=== PATIENT | male | born 1950 | race Caucasian/White ===

== ENCOUNTER 2018-07-26 19:01 | Emergency (ER) | payer MEDICARE, MEDICAID ==
[~2018-07-26] VITALS: Ht 162.6 cm; Wt 99.8 kg
--- NOTE | 2018-07-26 19:10 | NUR ---
BIB RA C/C OF CHEST PAIN/ HEADACHE X 2 DAYS. SECONDARY TO INCREASED BLOOD PRESSURE. SKIN PINK, WARM, DRY. MOVES ALL EXTREMITIES WELL. 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 NO S/S SOB. PT DENIES ANY FURTHER MEDICAL COMPLAINTS. NAD. WILL CONTINUE TO MONITOR.
[2018-07-26] MEDS ORDERED: NITROGLYCERIN 0.4 MG/TAB BOTTLE ONE (19:18)
[2018-07-26] MEDS ORDERED: ASPIRIN 325 MG TABLET ONE (19:18)
[2018-07-26] MEDS ORDERED: NITROGLYCERIN 0.4 MG/TAB BOTTLE SL ONE (19:30)
[2018-07-26] MEDS ORDERED: ASPIRIN 325 MG TABLET PO ONE (19:30)
[2018-07-26 19:35] LABS: BASOPHILS % (AUTO) 0.4 % (0.0-2.0); EOSINOPHILS % (AUTO) 2.4 % (0.0-6.0); HEMATOCRIT 40 % (39-51); HEMOGLOBIN 13.6 g/dL (13.5-17.5); LYMPHOCYTES # (AUTO) 1.4 /CMM (0.8-4.8); LYMPHOCYTES % (AUTO) 22.8 % (20.0-44.0); MEAN CORPUSCULAR HGB CONC 34 g/dl (31.0-36.0); MEAN CORPUSCULAR VOLUME 88 fL (80-96); MONOCYTES # (AUTO) 0.4 /CMM (0.1-1.30); MONOCYTES % (AUTO) 6.8 % (2.0-12.0); NEUTROPHILS # (AUTO) 4.2 /CMM (1.8-8.9); NEUTROPHILS % (AUTO) 67.6 % (43.0-81.0); PLATELET COUNT (AUTO) 163 /CMM (150-450); RED BLOOD CELL COUNT(AUTO) 4.55 MIL/uL (4.5-6.0); WHITE BLOOD COUNT (AUTO) 6.2 K/uL (4.3-11.0)
--- NOTE | 2018-07-26 19:37 | NUR ---
PT BROUGHT TO CT
[2018-07-26 19:41] LABS: CALCIUM, SERUM 8.9 mg/dL (8.5-10.1); CARBON DIOXIDE 30 mmol/L (21-32); CHLORIDE 98 mmol/L (98-107); CREATININE 1.1 mg/dL (0.6-1.3); GLUCOSE 253 mg/dL (74-106); POTASSIUM 4.4 mmol/L (3.5-5.1); SODIUM SERUM 133 mmol/L (136-145); UREA NITROGEN, BLOOD 29 mg/dL (7-18)
[2018-07-26 19:53] LABS: ALANINE AMINOTRANSFERASE 28 U/L (12-78); ALBUMIN 2.9 g/dL (3.4-5.0); ALKALINE PHOSPHATASE 144 U/L (46-116); ASPARTATE AMINOTRANSFERASE 15 U/L (15-37); B-TYPE NATRIURETIC PEPTIDE 244 PG/ML (0-125); BILIRUBIN,DIRECT 0.1 mg/dL (0.0-0.2); BILIRUBIN,TOTAL 0.3 mg/dL (0.2-1.0); TOTAL PROTEIN, SERUM 6.9 g/dL (6.4-8.2)
[2018-07-26] MEDS ORDERED: hydrALAZINE HCL IV 20 MG VIAL IV ONE (20:00)
--- NOTE | 2018-07-26 20:09 | NUR ---
AMBULATED TO BATHROOM WITH STABLE GAIT. NAD. WILL CONTINUE TO MONITOR.
--- NOTE | 2018-07-26 20:35 | NUR ---
Patient discharged to home in stable condition. Written and verbal after care instructions given. Patient verbalizes understanding of instruction. IV removed. Catheter intact and site benign. Pressure and 4x4 applied to site. No bleeding noted. AMBULATED WITH STABLE GAIT UPON D/C. NAD. VSS.
[2018-07-26 20:36] VITALS: BP 141/82
== END 2018-07-26 20:36 | disposition home or self-care (01) ==
LOC: ER 19:13
DX: I10 Essential (primary) hypertension (principal); R51 Headache; E11.9 Type 2 diabetes mellitus without complications; J45.909 Unspecified asthma, uncomplicated
CPT/HCPCS: 36415; 70450-TC; 71045-TC; 80048-TC; 80076-TC; 83880; 84484-TC; 85025-TC

== ENCOUNTER 2019-02-22 04:14 | Inpatient (IN) | payer MEDICARE, MEDICAID ==
[~2019-02-22] VITALS: Ht 172.7 cm; Wt 93.4 kg
[2019-02-22 04:41] LABS: BASOPHILS % (AUTO) 0.3 % (0.0-2.0); EOSINOPHILS % (AUTO) 1.6 % (0.0-6.0); HEMATOCRIT 40 % (39-51); HEMOGLOBIN 13.2 g/dL (13.5-17.5); LYMPHOCYTES # (AUTO) 1.6 /CMM (0.8-4.8); LYMPHOCYTES % (AUTO) 18.5 % (20.0-44.0); MEAN CORPUSCULAR HGB CONC 33 g/dl (31.0-36.0); MEAN CORPUSCULAR VOLUME 88 fL (80-96); MONOCYTES # (AUTO) 0.7 /CMM (0.1-1.30); MONOCYTES % (AUTO) 8.7 % (2.0-12.0); NEUTROPHILS # (AUTO) 6.1 /CMM (1.8-8.9); NEUTROPHILS % (AUTO) 70.9 % (43.0-81.0); PLATELET COUNT (AUTO) 197 /CMM (150-450); RED BLOOD CELL COUNT(AUTO) 4.49 MIL/uL (4.5-6.0); WHITE BLOOD COUNT (AUTO) 8.6 K/uL (4.3-11.0)
[2019-02-22 04:51] LABS: CALCIUM, SERUM 8.7 mg/dL (8.5-10.1); CREATININE 1.4 mg/dL (0.6-1.3); POTASSIUM 3.6 mmol/L (3.5-5.1)
[2019-02-22] MEDS ORDERED: HYDR100T27 PO (04:59)
[2019-02-22] MEDS ORDERED: ATOR10TA PO (05:00)
[2019-02-22] MEDS ORDERED: CARV25TA2 PO (05:00)
[2019-02-22] MEDS ORDERED: HYDR25TA4 PO (05:01)
[2019-02-22] MEDS ORDERED: HYDR-4077 PO (05:01)
[2019-02-22] MEDS ORDERED: WARF4TAB72 PO (05:01)
[2019-02-22] MEDS ORDERED: OLME40TA12 PO (05:02)
[2019-02-22] MEDS ORDERED: CLON0.1T PO (05:02)
[2019-02-22] MEDS ORDERED: ONDANSETRON HCL/PF 4 MG/2 ML VIAL IVP PRN (06:00)
[2019-02-22] MEDS ORDERED: NITROGLYCERIN 0.4 MG/TAB BOTTLE SL PRN (06:00)
[2019-02-22] MEDS ORDERED: INSU100V7 SQ (08:42)
[2019-02-22] MEDS ORDERED: LIRA0.6P SQ (08:42)
[2019-02-22] MEDS ORDERED: METOPROLOL TARTRATE 25 MG TABLET PO SCH (09:00)
[2019-02-22] MEDS: ASPIRIN 81 MG TAB.CHEW PO SCH (12:09)
[2019-02-22] MEDS ORDERED: CLONIDINE HCL 0.1 MG TABLET PO PRN (15:00)
[2019-02-22] MEDS ORDERED: hydrALAZINE HCL 50 MG TABLET PO PRN (15:00)
[2019-02-22] MEDS ORDERED: HYDROCHLOROTHIAZIDE 25 MG TABLET PO SCH (15:00)
[2019-02-22] MEDS ORDERED: DEXTROSE 50%-WATER 50 ML DISP.SYRIN IV PRN (15:30)
[2019-02-22] MEDS ORDERED: LORAZEPAM 1 MG TABLET PO PRN ×2 (15:30)
[2019-02-22 16:00] VITALS: BP 148/80
[2019-02-22] MEDS ORDERED: LOSARTAN POTASSIUM 50 MG TABLET PO SCH (16:00)
[2019-02-22] MEDS ORDERED: WARFARIN SODIUM 2 MG TABLET PO SCH (17:00)
[2019-02-22 17:19] LABS: CHOLESTEROL 148 mg/dL (<200); HDL CHOLESTEROL 38 mg/dL (40-60); LDL 84 mg/dL (0-99); TRIGLYCERIDES 173 mg/dL (30-150)
[2019-02-22] MEDS: WARFARIN SODIUM 2 MG TABLET PO SCH (18:21)
[2019-02-22] MEDS: ATORVASTATIN 10 MG TABLET PO SCH (18:22)
[2019-02-22] MEDS: BLOOD SUGAR DIAGNOSTIC 1 EACH STRIP VI SCH ×2 (18:22→21:22)
[2019-02-22] MEDS: CARVEDILOL 12.5 MG TABLET PO SCH (18:22)
[2019-02-22] MEDS: ISOSORBIDE DINITRATE (20MG) 20 MG TABLET PO SCH (18:23)
[2019-02-22] MEDS: hydrALAZINE HCL 50 MG TABLET PO SCH (18:23)
[2019-02-22] MEDS: ENOXAPARIN SODIUM 100 MG/ML DISP.SYRIN SQ SCH (18:24)
[2019-02-22] MEDS: INSULIN REGULAR, HUMAN 100 UNIT/ML 3 ML VIAL SQ PRN (18:26)
[2019-02-22 20:00] VITALS: BP 117/69
[2019-02-22] MEDS: IV NS 0.9% 1,000 ML IV PRN (21:05)
[2019-02-22] MEDS: *INSULIN REGULAR(HUMULIN R)HUM 100 UNIT/ML VIAL SQ PRN (21:18)
[2019-02-22] MEDS: INSULIN GLARGINE, 100 UNIT/ML CARTRIDGE SQ SCH (21:19)
[2019-02-23] VITALS: BP 110/61
[2019-02-23] MEDS: IV NS 0.9% 1,000 ML IV PRN (06:40)
[2019-02-23] MEDS: BLOOD SUGAR DIAGNOSTIC 1 EACH STRIP VI SCH ×4 (06:42→22:08)
[2019-02-23] MEDS: INSULIN REGULAR, HUMAN 100 UNIT/ML 3 ML VIAL SQ PRN ×2 (06:42→16:50)
[2019-02-23 07:34] LABS: BASOPHILS % (AUTO) 0.4 % (0.0-2.0); EOSINOPHILS % (AUTO) 1.4 % (0.0-6.0); HEMATOCRIT 37 % (39-51); HEMOGLOBIN 12.3 g/dL (13.5-17.5); LYMPHOCYTES # (AUTO) 1.5 /CMM (0.8-4.8); LYMPHOCYTES % (AUTO) 21.7 % (20.0-44.0); MEAN CORPUSCULAR HGB CONC 33 g/dl (31.0-36.0); MEAN CORPUSCULAR VOLUME 88 fL (80-96); MONOCYTES # (AUTO) 0.6 /CMM (0.1-1.30); MONOCYTES % (AUTO) 8.7 % (2.0-12.0); NEUTROPHILS # (AUTO) 4.7 /CMM (1.8-8.9); NEUTROPHILS % (AUTO) 67.8 % (43.0-81.0); PLATELET COUNT (AUTO) 183 /CMM (150-450); RED BLOOD CELL COUNT(AUTO) 4.25 MIL/uL (4.5-6.0); WHITE BLOOD COUNT (AUTO) 6.9 K/uL (4.3-11.0)
[2019-02-23 07:46] LABS: ALANINE AMINOTRANSFERASE 26 U/L (12-78); ALBUMIN 2.3 g/dL (3.4-5.0); ALKALINE PHOSPHATASE 122 U/L (46-116); ASPARTATE AMINOTRANSFERASE 17 U/L (15-37); BILIRUBIN,TOTAL 0.3 mg/dL (0.2-1.0); CALCIUM, SERUM 8.1 mg/dL (8.5-10.1); CARBON DIOXIDE 29 mmol/L (21-32); CHLORIDE 102 mmol/L (98-107); CREATININE 1.6 mg/dL (0.6-1.3); GLUCOSE 186 mg/dL (74-106); MAGNESIUM 1.8 mg/dL (1.8-2.4); PHOSPHORUS 3.8 mg/dL (2.5-4.9); POTASSIUM 3.9 mmol/L (3.5-5.1); SODIUM SERUM 138 mmol/L (136-145); TOTAL PROTEIN, SERUM 6.2 g/dL (6.4-8.2); UREA NITROGEN, BLOOD 29 mg/dL (7-18)
[2019-02-23 08:00] VITALS: BP 151/79
[2019-02-23 08:00] LABS: CHOLESTEROL 127 mg/dL (<200); HDL CHOLESTEROL 31 mg/dL (40-60); LDL 65 mg/dL (0-99); TRIGLYCERIDES 229 mg/dL (30-150)
[2019-02-23] MEDS: CARVEDILOL 12.5 MG TABLET PO SCH ×2 (08:56→16:42)
[2019-02-23] MEDS: ASPIRIN 81 MG TAB.CHEW PO SCH (08:57)
[2019-02-23] MEDS: ISOSORBIDE DINITRATE (20MG) 20 MG TABLET PO SCH ×2 (08:57→16:45)
[2019-02-23] MEDS: hydrALAZINE HCL 50 MG TABLET PO SCH ×3 (08:57→16:42)
[2019-02-23] MEDS: ENOXAPARIN SODIUM 100 MG/ML DISP.SYRIN SQ SCH ×2 (08:58→22:07)
[2019-02-23] MEDS ORDERED: IOHEXOL-350 100 ML VIAL IV ONE ×2 (12:02→12:41)
[2019-02-23] MEDS ORDERED: IV NS 0.9% 250 ML IV ONE (12:02)
[2019-02-23] MEDS: METOPROLOL TARTRATE INJ 5 MG/5 ML AMPUL IVP PRN ×3 (12:09→12:19)
[2019-02-23] MEDS ORDERED: NITROGLYCERIN 4.9 GM SPRAY SL PRN (12:30)
[2019-02-23 16:00] VITALS: BP 119/52
[2019-02-23] MEDS: WARFARIN SODIUM 2 MG TABLET PO SCH (16:33)
[2019-02-23] MEDS: ATORVASTATIN 10 MG TABLET PO SCH (17:36)
[2019-02-23 20:26] VITALS: BP 139/72
[2019-02-23] MEDS: INSULIN GLARGINE, 100 UNIT/ML CARTRIDGE SQ SCH (21:52)
[2019-02-23] MEDS: *INSULIN REGULAR(HUMULIN R)HUM 100 UNIT/ML VIAL SQ PRN (21:53)
[2019-02-23 22:00] VITALS: BP 139/72
[2019-02-24] MEDS: BLOOD SUGAR DIAGNOSTIC 1 EACH STRIP VI SCH ×3 (06:32→17:42)
[2019-02-24] MEDS: INSULIN REGULAR, HUMAN 100 UNIT/ML 3 ML VIAL SQ PRN ×2 (06:33→17:44)
[2019-02-24 08:00] VITALS: BP 144/60
[2019-02-24] MEDS ORDERED: LOSARTAN POTASSIUM 50 MG TABLET PO SCH (09:00)
[2019-02-24] MEDS: ASPIRIN 81 MG TAB.CHEW PO SCH (09:17)
[2019-02-24] MEDS: ISOSORBIDE DINITRATE (20MG) 20 MG TABLET PO SCH ×2 (09:17→17:38)
[2019-02-24] MEDS: ENOXAPARIN SODIUM 100 MG/ML DISP.SYRIN SQ SCH ×2 (09:20→20:22)
[2019-02-24] MEDS ORDERED: ISOSORBIDE MONONITRATE (30MG) 30 MG TAB.SR.24H PO SCH (09:30)
[2019-02-24 10:20] LABS: BASOPHILS % (AUTO) 0.5 % (0.0-2.0); EOSINOPHILS % (AUTO) 1.3 % (0.0-6.0); HEMATOCRIT 38 % (39-51); HEMOGLOBIN 12.8 g/dL (13.5-17.5); LYMPHOCYTES # (AUTO) 1.1 /CMM (0.8-4.8); LYMPHOCYTES % (AUTO) 16.6 % (20.0-44.0); MEAN CORPUSCULAR HGB CONC 34 g/dl (31.0-36.0); MEAN CORPUSCULAR VOLUME 87 fL (80-96); MONOCYTES # (AUTO) 0.6 /CMM (0.1-1.30); MONOCYTES % (AUTO) 8.6 % (2.0-12.0); PLATELET COUNT (AUTO) 181 /CMM (150-450); RED BLOOD CELL COUNT(AUTO) 4.37 MIL/uL (4.5-6.0); WHITE BLOOD COUNT (AUTO) 6.9 K/uL (4.3-11.0)
[2019-02-24] MEDS: CARVEDILOL 12.5 MG TABLET PO SCH ×2 (10:40→17:37)
[2019-02-24] MEDS: hydrALAZINE HCL 50 MG TABLET PO SCH ×4 (10:40→17:30)
[2019-02-24 10:42] LABS: ALBUMIN 2.4 g/dL (3.4-5.0); BILIRUBIN,TOTAL 0.3 mg/dL (0.2-1.0); CALCIUM, SERUM 8.4 mg/dL (8.5-10.1); CREATININE 1.5 mg/dL (0.6-1.3); PHOSPHORUS 3.4 mg/dL (2.5-4.9); POTASSIUM 4.1 mmol/L (3.5-5.1); TOTAL PROTEIN, SERUM 6.5 g/dL (6.4-8.2)
[2019-02-24 11:18] LABS: APPEARANCE,URINE CLEAR (CLEAR); BILIRUBIN,URINE NEGATIVE (NEGATIVE); BLOOD, URINE SMALL Ery/uL (NEGATIVE); COLOR,URINE YELLOW (YELLOW); KETONES,URINE NEGATIVE (NEGATIVE); LEUKOCYTE ESTERASE ,URINE NEGATIVE (NEGATIVE); NITRITE, URINE NEGATIVE (NEGATIVE); PH,URINE 6.5 (5.0-8.0); PROTEIN,URINE >=300 mg/dl (NEGATIVE); UGLUCOSE NEGATIVE (NEGATIVE); UROBILINOGEN,URINE 0.2 EU/dL (0.2)
[2019-02-24 11:54] LABS: BACTERIA,URINE None seen /HPF (None Seen); RBC,URINE 0-2 /HPF (0-2); SQUAMOUS EPITHELIAL CELL,UR 0-2 /HPF (None Seen); WBC,URINE 0-2 /HPF (0-3)
[2019-02-24 13:03] LABS: CREATININE, URINE 166.2 MG/DL (30.0-125.0)
[2019-02-24 13:22] LABS: URINE TOTAL PROTEIN 1004.8 mg/dL (0-11.9)
[2019-02-24 13:24] LABS: EOSINOPHIL,URINE None Seen
[2019-02-24 16:00] VITALS: BP 125/54
[2019-02-24] MEDS ORDERED: WARFARIN SODIUM 5 MG TABLET PO SCH (17:00)
[2019-02-24] MEDS: ATORVASTATIN 10 MG TABLET PO SCH (17:36)
[2019-02-24 20:31] VITALS: BP 103/48
[2019-02-24 20:32] VITALS: BP 136/55
== END 2019-02-24 20:40 | disposition home health service (06) | DRG 302 ==
LOC: ER 04:14 → TELE 06:33 → MED 02-23 13:25
PROVIDERS: ADMIT Internal Medicine; ATTEND Internal Medicine
DX: I25.10 Atherosclerotic heart disease of native coronary artery without angina pectoris (principal); E43 Unspecified severe protein-calorie malnutrition; N17.0 Acute kidney failure with tubular necrosis; I12.9 Hypertensive chronic kidney disease with stage 1 through stage 4 chronic kidney disease, or unspecified chronic kidney disease; E11.22 Type 2 diabetes mellitus with diabetic chronic kidney disease; N18.9 Chronic kidney disease, unspecified; Z79.01 Long term (current) use of anticoagulants; Z95.5 Presence of coronary angioplasty implant and graft; Z95.2 Presence of prosthetic heart valve; Z79.4 Long term (current) use of insulin; E88.09 Other disorders of plasma-protein metabolism, not elsewhere classified; Z68.31 Body mass index [BMI] 31.0-31.9, adult
CPT/HCPCS: 36415; 71045-TC; 75574; 80048-TC; 80053-TC; 80061-TC; 81000-TC; 82570-TC; 82962-TC; 83735-TC; 84100-TC; 84155-TC; 84300-TC; 84484-TC; 85025-TC; 85610-TC; 85730-TC; 87081-TC; 93307-TC; G0378; J1650; J1815; J7030; J7050; Q9967

== ENCOUNTER 2019-09-08 15:40 | Inpatient (IN) | payer MEDICARE, OTHER ==
[~2019-09-08] VITALS: Ht 175.3 cm; Wt 102.5 kg
[~2019-09-08 15:40] MED LIST: ATOR10TA PO; CARV25TA2 PO; CLON0.1T PO; HYDR-4077 PO; HYDR25TA4 PO; INSU100V7 SQ; LIRA0.6P SQ; OLME40TA12 PO; WARF4TAB72 PO
--- NOTE | 2019-09-08 15:45 | NUR ---
BIBRA FROM HOME TO ER BED 5. AAOX4. BREATHING RAPID, GASPING, RETRACTING AND ACCESSORY MUSCLE USE. PT RECEIVED ON CPAP SATTING @ 100%. PT WAS BEOUGHT IN FOR SOB. PER EMS REPORT, PT DEVELOPED HAVING SOB 15 MIN PRIOR TO BEING CALLED. PT WAS NOTED W/ 02 SAT IN THE 80S ON RA. PT PLACED ON MONITOR. MD WAS AT THE BEDSIDE FOR EVAL. ORDERS RECEIVED NOTED AND CARRIED OUT. IV LINE PRESENT ON RFA 18G BY EMS. BLOO DRAWN. EKG DONE. WILL CONTINUE TO MONITOR PT
--- NOTE | 2019-09-08 15:55 | NUR ---
PT IS OB BIPAP
[2019-09-08] MEDS ORDERED: MORPHINE SULFATE INJ 2 MG/ML DISP.SYRIN IV ONE (16:00)
[2019-09-08] MEDS ORDERED: ONDANSETRON HCL/PF 4 MG/2 ML VIAL IVP ONE (16:00)
[2019-09-08 16:01] LABS: BASOPHILS % (AUTO) 0.4 % (0.0-2.0); HEMATOCRIT 40 % (39-51); LYMPHOCYTES # (AUTO) 0.6 /CMM (0.8-4.8); LYMPHOCYTES % (AUTO) 4.4 % (20.0-44.0); MEAN CORPUSCULAR HGB CONC 32 g/dl (31.0-36.0); MEAN CORPUSCULAR VOLUME 90 fL (80-96); MONOCYTES # (AUTO) 0.8 /CMM (0.1-1.30); MONOCYTES % (AUTO) 5.6 % (2.0-12.0); NEUTROPHILS # (AUTO) 12.5 /CMM (1.8-8.9); NEUTROPHILS % (AUTO) 89.6 % (43.0-81.0); PLATELET COUNT (AUTO) 167 /CMM (150-450)
[2019-09-08] MEDS ORDERED: ONDANSETRON HCL/PF 4 MG/2 ML VIAL ONE (16:08)
[2019-09-08] MEDS ORDERED: MORPHINE SULFATE INJ 4 MG/ML DISP.SYRIN ONE (16:08)
[2019-09-08 16:10] LABS: CALCIUM, SERUM 8.4 mg/dL (8.5-10.1); POTASSIUM 5.3 mmol/L (3.5-5.1)
--- NOTE | 2019-09-08 16:22 | NUR ---
BP WAS NOTED @ 84/51 AFTER GIVEN MORPHINE 4MG IV. PT IS AWAKE, ALERT AND VERBALLY RESPONSIVE.
[2019-09-08 16:23] LABS: ALBUMIN 2.6 g/dL (3.4-5.0); BILIRUBIN,DIRECT 0.3 mg/dL (0.0-0.2); BILIRUBIN,TOTAL 0.6 mg/dL (0.2-1.0); TOTAL PROTEIN, SERUM 7.3 g/dL (6.4-8.2)
[2019-09-08] MEDS ORDERED: ENOXAPARIN SODIUM 100 MG/ML DISP.SYRIN SQ ONE (16:30)
--- NOTE | 2019-09-08 16:30 | NUR ---
CALLED CARDIO ITS ROBLES.
--- NOTE | 2019-09-08 16:33 | NUR ---
TISH/OCTAVIANO (SON) [phone] - CELLPHONE. [phone] - WORK
[2019-09-08] MEDS ORDERED: HEPARIN SODIUM, PORCINE 5000 UNITS/1 ML VIAL IV ONE (16:40)
--- NOTE | 2019-09-08 16:42 | NUR ---
CALLED FOR ICU BED & MOVE SHEET SUBMITTED TO ADMITTING.
[2019-09-08] MEDS ORDERED: HEPARIN SODIUM, PORCINE 5000 UNITS/1 ML VIAL ONE (16:43)
[2019-09-08] MEDS ORDERED: HEPARIN INFUSION/D5W 500 ML IV PRN (17:00)
--- NOTE | 2019-09-08 17:00 | NUR ---
ROOM ASSIGNMENT: [id number] ICU
[2019-09-08] MEDS ORDERED: DULA0.75 SQ (17:07)
[2019-09-08] MEDS ORDERED: HYDR100T27 PO (17:07)
[2019-09-08] MEDS ORDERED: DEXL60CA3 PO (17:07)
[2019-09-08] MEDS ORDERED: ROFL500T PO (17:07)
[2019-09-08] MEDS ORDERED: DOXA4TAB19 PO (17:07)
[2019-09-08] MEDS ORDERED: CLON0.5T4 PO (17:07)
[2019-09-08] MEDS ORDERED: LOSA100T31 PO (17:07)
[2019-09-08] MEDS ORDERED: ASPI-1152 PO (17:07)
[2019-09-08] MEDS ORDERED: ESCI20TA PO (17:07)
[2019-09-08] MEDS ORDERED: GABA300C PO (17:07)
[2019-09-08] MEDS ORDERED: LINA145C PO (17:07)
[2019-09-08] MEDS ORDERED: ATOR20TA PO (17:07)
[2019-09-08] MEDS ORDERED: NIFE-34 PO (17:07)
[2019-09-08] MEDS ORDERED: FLUT1BLS6 INH (17:07)
[2019-09-08] MEDS ORDERED: METF-442 PO (17:07)
[2019-09-08] MEDS ORDERED: GLIM4TAB37 PO (17:07)
[2019-09-08] MEDS ORDERED: FURO40TA5 PO (17:07)
[2019-09-08] MEDS ORDERED: WARF-58 PO (17:07)
[2019-09-08] MEDS ORDERED: GEMF600T5 PO (17:07)
--- NOTE | 2019-09-08 17:15 | NUR ---
TISH, SON UPDATED OF PT'S ADMISSION
--- NOTE | 2019-09-08 17:22 | NUR ---
REPORT GIVEN TO MIL BRADSHAW FOR RODDY.
--- NOTE | 2019-09-08 17:42 | NUR ---
PT TRANSPORTED TO UNIT ON [address] WITH EMT, RT AND RN AT BEDSIDE W/ ACLS PROTOCOL. NAD NOTED DURING TRANSPORT.
--- NOTE | 2019-09-08 17:50 | NUR ---
RN INITIAL NOTES RECEIVED PT AWAKE, A/0X4. CYPRIOT SPEAKING. ON BIPAP. NO RESPIRATORY DISTRESS NOTED. DENIES ANY PAIN. PT CONNECTED TO MONITOR. PLACED COMFORTABLY TO BED. ON HEPARIN DRIP AT 1200UNITS/HR INFUSING. SKIN ASSESSMENT DONE, SKIN INTACT. PT CONTINENT. GIVEN URINAL AT BEDSIDE. ORIENTED TO ROOM AND USE OF CALL LIGHT. WILL CLOSELY MONITOR
[2019-09-08 18:00] VITALS: BP 136/67
[2019-09-08] MEDS ORDERED: Z GUARD REMEDY 2 OZ OINT TP PRN (18:00)
[2019-09-08] MEDS ORDERED: DULAGLUTIDE SQ SCH (18:00)
[2019-09-08] MEDS ORDERED: MAGNESIUM HYDROXIDE 30 ML UDC PO PRN (18:00)
[2019-09-08] MEDS ORDERED: ONDANSETRON HCL/PF 4 MG/2 ML VIAL IVP PRN (18:00)
[2019-09-08] MEDS ORDERED: MAG HYDROX/AL HYDROX/SIMETH 30 ML UDC PO PRN (18:00)
[2019-09-08] MEDS ORDERED: ACETAMINOPHEN 325 MG TABLET PO PRN (18:00)
[2019-09-08] MEDS: HEPARIN INFUSION/D5W 500 ML IV PRN (18:26)
--- NOTE | 2019-09-08 18:46 | NUR ---
RN CLOSING NOTES NO SIGNIFICANT CHANGE NOTED. A/OX4. ON BIPAP. NO RESPIRATORY DISTRESS NOTED. NO SOB NOTED. DENIES ANY PAIN. REMAINS ON HEPARIN DRIP. NEXT PTT AT 2300. FOR ECHO, EKG AND US KIDNEY. PT COMFORTABLE. CALL LIGHT WITHIN REACH. WILL ENDORSE FOR CONTINUITY OF CARE.
[2019-09-08 19:00] VITALS: BP 110/52
[2019-09-08] MEDS ORDERED: CHOL100040 PO (19:02)
[2019-09-08 20:00] VITALS: BP_SYST 118; BP_SYST 127; BP_DIAS 65; BP_DIAS 68
--- NOTE | 2019-09-08 20:00 | NUR ---
Received patient A/OX4.Dx: Acute Respiratory Failure,CHF Exacerbation,NSTEMI,COVID Negative. With H/x of CAD.CABG,HTN,HLD.VSS.SR.On BIPAP with prescribed settings well tolerated.Patient denies chest pain or sob.Hepatin gtt infusing at 1200 units/HR will titrate per serial PTT result. NPO status.Continent and instructed to collect urine.Specimen container at bedside.Encouraged to turned to sides Q 2 hrs.Safety measures implemented with Call light at bedside.Continue monitoring.
[2019-09-08 21:00] VITALS: BP 127/65
[2019-09-08] MEDS: ATORVASTATIN 40 MG TABLET PO SCH (21:38)
[2019-09-08 22:00] VITALS: BP 103/53
[2019-09-08] MEDS ORDERED: ATORVASTATIN 10 MG TABLET PO SCH (22:00)
--- NOTE | 2019-09-08 22:00 | NUR ---
Urine specimen collected and sent to lab.Patient resting in no acute distress.
[2019-09-08 23:00] VITALS: BP 120/65
--- NOTE | 2019-09-08 23:37 | NUR ---
EKG DONE. NOTIFIED RN WITH THE RESULT.
[2019-09-09] VITALS (26 sets, daily range): BP systolic 90–155; BP diastolic 24–81
--- NOTE | 2019-09-09 | NUR ---
Patient PTT 45.4 Heparin gtt titrated up to 1400 units per Weight Based Heparin Dosing Orders for ACS/AMI.No active bleeding noted.Denies chest pain or sob. VSS.
[2019-09-09 05:28] LABS: APPEARANCE,URINE SL CLOUDY (CLEAR); BILIRUBIN,URINE SMALL (NEGATIVE); BLOOD, URINE LARGE Ery/uL (NEGATIVE); COLOR,URINE DARK YELLO (YELLOW); KETONES,URINE NEGATIVE (NEGATIVE); LEUKOCYTE ESTERASE ,URINE NEGATIVE (NEGATIVE); NITRITE, URINE NEGATIVE (NEGATIVE); PROTEIN,URINE >=300 mg/dl (NEGATIVE); UGLUCOSE 250 MG/DL mg/dL (NEGATIVE); UROBILINOGEN,URINE 0.2 EU/dL (0.2)
[2019-09-09 05:43] LABS: CREATININE, URINE 228.3 MG/DL (30.0-125.0)
[2019-09-09 05:56] LABS: EOSINOPHIL,URINE None Seen
--- NOTE | 2019-09-09 06:00 | NUR ---
DNP,Isiah Ziegler notified of Troponin 39.102 no new orders received.Aware patient on heparin gtt.
--- NOTE | 2019-09-09 06:15 | NUR ---
Patient status unchanged.VSS.SR.Heparin infusing at 1400 units.AM care done. Voiding freely per urinal.No bm noted.All needs attended.AM labs PTT still pending. Remains asymptomatic.Will endorse to day shift for rajendra.
[2019-09-09 06:33] LABS: ABG BASE EXCESS -1.8 mmol/L; ABG OXYGEN SATURATION 92.9 % (92.0-98.5); ABG PCO2 50.3 mmHg (35.0-45.0); ABG PH 7.313 (7.350-7.450); ABG PO2 72.9 mmHg (75.0-100.0); AaDO2 81.9 mmHg; MetHb 0.5 % (0.0-1.5); O2Hb 91.5 % (94.0-97.0); SITE, ABG Right Radial; VENT MODE, BG ST 20/5 30%
[2019-09-09 07:04] LABS: URINE TOTAL PROTEIN 2288.3 mg/dL (0-11.9)
[2019-09-09 07:05] LABS: BASOPHILS % (AUTO) 0.3 % (0.0-2.0); EOSINOPHILS % (AUTO) 0.1 % (0.0-6.0); HEMATOCRIT 35 % (39-51); HEMOGLOBIN 11.5 g/dL (13.5-17.5); LYMPHOCYTES # (AUTO) 0.9 /CMM (0.8-4.8); LYMPHOCYTES % (AUTO) 11.1 % (20.0-44.0); MEAN CORPUSCULAR HGB CONC 32 g/dl (31.0-36.0); MEAN CORPUSCULAR VOLUME 89 fL (80-96); MONOCYTES # (AUTO) 0.7 /CMM (0.1-1.30); MONOCYTES % (AUTO) 8.4 % (2.0-12.0); NEUTROPHILS # (AUTO) 6.7 /CMM (1.8-8.9); NEUTROPHILS % (AUTO) 80.1 % (43.0-81.0); PLATELET COUNT (AUTO) 127 /CMM (150-450); RED BLOOD CELL COUNT(AUTO) 3.96 MIL/uL (4.5-6.0); WHITE BLOOD COUNT (AUTO) 8.4 K/uL (4.3-11.0)
--- NOTE | 2019-09-09 07:20 | NUR ---
RN INITIAL NOTES RECEIVED PT AWAKE, A/OX4. ON BIPAP. HOB ELEVATED. NO RESPIRATORY DISTRESS NOTED. NO SOB NOTED. DENIES ANY PAIN. ON HEPARIN DRIP, WILL MONITOR PTT. PT COMFORTABLE. CALL LIGHT WITHIN REACH. WILL MONITOR
[2019-09-09 07:25] LABS: THYROID STIMULATING HORMONE 1.441 uIU/mL (0.358-3.74)
[2019-09-09] MEDS: PANTOPRAZOLE 40 MG TABLET.DR PO SCH (07:30)
--- NOTE | 2019-09-09 08:00 | NUR ---
RT PATIENT REMOVED FROM BIPAP AND PLACED ON 1.5 L O2 MYNOR WELL. PATIENT AWAKE AND ALERT WITH ZERO SOB AT THE MOMENT.
[2019-09-09 08:10] LABS: ALBUMIN 2.1 g/dL (3.4-5.0); BILIRUBIN,TOTAL 0.5 mg/dL (0.2-1.0); CALCIUM, SERUM 8.3 mg/dL (8.5-10.1); CREATININE 2.9 mg/dL (0.6-1.3); PHOSPHORUS 4.7 mg/dL (2.5-4.9); POTASSIUM 5.1 mmol/L (3.5-5.1); TOTAL PROTEIN, SERUM 6.2 g/dL (6.4-8.2)
[2019-09-09 08:45] LABS: ABG BASE EXCESS -1.3 mmol/L; ABG OXYGEN SATURATION 97.2 % (92.0-98.5); ABG PCO2 54.2 mmHg (35.0-45.0); ABG PH 7.296 (7.350-7.450); ABG PO2 98.3 mmHg (75.0-100.0); AaDO2 66.4 mmHg; COHb 0.9 % (0.5-1.5); MetHb 0.3 % (0.0-1.5); SITE, ABG Left Radial; VENT MODE, BG 3L N/C
[2019-09-09 08:47] LABS: IRON, SERUM 17 ug/dl (50-175); TOTAL IRON BINDING CAPACITY 139 ug/dl (250-450)
[2019-09-09 08:57] LABS: FERRITIN 406 ng/mL (8-388)
[2019-09-09] MEDS: GABAPENTIN 300 MG CAPSULE PO SCH ×3 (08:59→16:35)
[2019-09-09] MEDS: GEMFIBROZIL 600 MG TABLET PO SCH (08:59)
[2019-09-09] MEDS: ESCITALOPRAM OXALATE (10 MG) 10 MG TABLET PO SCH (08:59)
[2019-09-09] MEDS: GLIMEPIRIDE 4 MG TABLET PO SCH (08:59)
[2019-09-09] MEDS: ASPIRIN EC 81 MG TABLET.DR PO SCH (08:59)
[2019-09-09] MEDS ORDERED: FUROSEMIDE 40 MG/4 ML VIAL IV SCH (09:00)
[2019-09-09] MEDS ORDERED: ROFLUMILAST PO SCH (09:00)
[2019-09-09] MEDS ORDERED: ESCITALOPRAM OXALATE (10 MG) 10 MG TABLET PO SCH (09:00)
[2019-09-09] MEDS: FUROSEMIDE 100 MG/10 ML VIAL IV SCH ×2 (09:42→13:29)
[2019-09-09] MEDS: IPRATROPIUM NEB FS 0.5 MG/2.5 ML AMPUL.NEB NEB SCH ×3 (09:53→19:34)
--- NOTE | 2019-09-09 10:30 | NUR ---
RN NOTES [address] LONDON. TOLERATING 02 VIA NC AT 2LPM. NO SOB NOTED. HOB ELEVTAED, WILL MONITOR [address] ALONZO. AWARE OF LAB VALUES AND CXR RESULT. CONT ON HEPARIN DRIP. WILL MONITOR
[2019-09-09] MEDS: HEPARIN INFUSION/D5W 500 ML IV PRN (12:21)
--- NOTE | 2019-09-09 12:30 | NUR ---
RN NOTES SEEN BY DR CLEMENTE. AWARE OF TROPONIN, 22.471. ON HEPARIN DRIP. NO ORDER MADE. DENIES CHEST PAIN. POSSIBLE CARDIAC CATH IN AM. WILL MONITOR
[2019-09-09 18:38] LABS: BILIRUBIN,TOTAL 0.5 mg/dL (0.2-1.0); CALCIUM, SERUM 8.4 mg/dL (8.5-10.1); CREATININE 2.6 mg/dL (0.6-1.3); POTASSIUM 4.6 mmol/L (3.5-5.1); TOTAL PROTEIN, SERUM 6.1 g/dL (6.4-8.2)
--- NOTE | 2019-09-09 18:41 | NUR ---
RN CLOSING NOTES NO SIGNIFICANT CHANGE NOTED. REMAINS ON HEPARIN DRIP. PTT MONITORED ORDERED. KEPT COMFORTABLE. CALL LIGHT WITHIN REACH. WILL ENDORSE FOR CONTINUITY OF CARE
--- NOTE | 2019-09-09 19:25 | NUR ---
RN OPENING NOTE RECEIVED PT IN BED IN SEMI-FOWLERS POSITION. PT A/O X4 ICELANDIC SPEAKING. PT CURRENTLY SR ON MONITOR. IV TO RFA AND LFA PATENT INTACT AND FLUSHING WELL. PT CURRENTLY ON HEPARIN DRIP 1600 UNITS PER PROTOCOL. ON O2 VIA NC AT 2L/MIN. PT IN NO RESPIRATORY DISTRESS. CALL LIGHT WITHIN REACH, BED LOCKED AND IN LOWEST POSITION. WILL CONTINUE TO MONITOR PT.
[2019-09-09] MEDS: ATORVASTATIN 40 MG TABLET PO SCH (21:59)
[2019-09-10] VITALS (27 sets, daily range): BP systolic 107–152; BP diastolic 25–91
[2019-09-10] MEDS: IPRATROPIUM NEB FS 0.5 MG/2.5 ML AMPUL.NEB NEB SCH ×4 (01:26→19:30)
[2019-09-10] MEDS ORDERED: HEPARIN INFUSION/D5W 500 ML IV ONE ×3 (03:08→06:20)
[2019-09-10] MEDS: HEPARIN INFUSION/D5W 500 ML IV PRN ×2 (03:18→16:26)
[2019-09-10 04:31] LABS: BASOPHILS % (AUTO) 0.4 % (0.0-2.0); EOSINOPHILS % (AUTO) 1.1 % (0.0-6.0); HEMATOCRIT 34 % (39-51); HEMOGLOBIN 11.2 g/dL (13.5-17.5); LYMPHOCYTES # (AUTO) 1.2 /CMM (0.8-4.8); LYMPHOCYTES % (AUTO) 18.5 % (20.0-44.0); MEAN CORPUSCULAR HGB CONC 34 g/dl (31.0-36.0); MEAN CORPUSCULAR VOLUME 89 fL (80-96); MONOCYTES # (AUTO) 0.9 /CMM (0.1-1.30); MONOCYTES % (AUTO) 12.9 % (2.0-12.0); NEUTROPHILS # (AUTO) 4.5 /CMM (1.8-8.9); NEUTROPHILS % (AUTO) 67.1 % (43.0-81.0); PLATELET COUNT (AUTO) 126 /CMM (150-450); RED BLOOD CELL COUNT(AUTO) 3.79 MIL/uL (4.5-6.0); WHITE BLOOD COUNT (AUTO) 6.7 K/uL (4.3-11.0)
[2019-09-10 04:46] LABS: BILIRUBIN,TOTAL 0.5 mg/dL (0.2-1.0); CALCIUM, SERUM 8.3 mg/dL (8.5-10.1); CREATININE 2.2 mg/dL (0.6-1.3); MAGNESIUM 1.9 mg/dL (1.8-2.4); PHOSPHORUS 4.1 mg/dL (2.5-4.9); POTASSIUM 4.6 mmol/L (3.5-5.1); TOTAL PROTEIN, SERUM 6.5 g/dL (6.4-8.2)
--- NOTE | 2019-09-10 05:00 | NUR ---
RN NOTE APTT 39.0 INCREASED HEPARIN RATE BY 200 UNITS PER WEIGHT BASED HEPARIN DOSING ORDERS FOR ACUTE CORONARY SYNDROME/AMI.
[2019-09-10] MEDS ORDERED: IODIXANOL 150 ML IV ONE (06:18)
--- NOTE | 2019-09-10 06:19 | NUR ---
RN NOTE HEPARIN DRIP STOPPED PT TO GO TO SOLUTIONS SALES EXECUTIVE
[2019-09-10] MEDS ORDERED: VERAPAMIL HCL IV 5 MG/2 ML VIAL ONE (06:20)
[2019-09-10] MEDS ORDERED: HEPARIN SODIUM, PORCINE 1,000 UNIT/ML VIAL ONE (06:20)
[2019-09-10] MEDS ORDERED: NITROGLYCERIN ICAR 1,000 MCG/10 ML VIAL ICAR ONE (06:21)
[2019-09-10] MEDS ORDERED: LIDOCAINE HCL/PF 1% 30 ML SDV ONE (06:21)
--- NOTE | 2019-09-10 06:50 | NUR ---
RN CLOSING NOTE CONSENT SIGNED PT OUT TO RETURN TO FACTORY CLERK. PT REMAINED STABLE THROUGHOUT SHIFT. ENDORSED TO AM RN PTT REPEAT TODAY AT 120O.
[2019-09-10] MEDS ORDERED: FENTANYL PF 100MCG/2ML AMPUL ONE (07:28)
--- NOTE | 2019-09-10 08:22 | NUR ---
RN INITIAL NOTES RECEIVED PT FROM INDUCTION COORDINATION POWER ENGINEER. PT AWAKE, A/OX4. ON 02 VIA NC AT 2LPM. HOB ELEVATED. DENIES ANY PAIN. IV LINES IN PLACE. RIGHT TR BAND IN PLACE. NO SIGNS OF BLEEDING NOTED. GOOD CAPILLARY REFILL NOTED. WILL CLOSELY MONITOR
--- NOTE | 2019-09-10 08:50 | NUR ---
O2 FLOW DECREASED FROM 2 LPM TO [address] LONDON. Addendum: 09/10/19 at 0851 by NIDHI LIANG RT Amended: Links added.
[2019-09-10] MEDS: GLIMEPIRIDE 4 MG TABLET PO SCH (08:53)
[2019-09-10] MEDS: GABAPENTIN 300 MG CAPSULE PO SCH ×3 (08:53→16:25)
[2019-09-10] MEDS: GEMFIBROZIL 600 MG TABLET PO SCH (08:53)
[2019-09-10] MEDS: ESCITALOPRAM OXALATE (10 MG) 10 MG TABLET PO SCH (08:53)
[2019-09-10] MEDS: ASPIRIN EC 81 MG TABLET.DR PO SCH (08:53)
[2019-09-10] MEDS: PANTOPRAZOLE 40 MG TABLET.DR PO SCH (08:54)
--- NOTE | 2019-09-10 09:15 | NUR ---
RN NOTES RIGHT TR BAND REMOVED. DRESSING IN PLACE. NO BLEEDING NOTED. GOOD PALPABLE RADIAL PULSE NOTED. GOOD CAPILLARY REFILL NOTED. HEPARIN DRIP RESTARTED ORDERED BY DR CLEMENTE. WILL CLOSELY MONITOR
[2019-09-10] MEDS ORDERED: FUROSEMIDE 20 MG/2 ML VIAL IV ONE (10:00)
[2019-09-10] MEDS: CARVEDILOL 6.25 MG TABLET PO SCH ×2 (10:13→21:03)
--- NOTE | 2019-09-10 15:00 | NUR ---
RN NOTES SEEN BY DR YEE. PER , WILL TRANSFER PT TO [facility] OR [facility] FOR CARDIAC SURGERY EVAL. WILL CONTINUE ON HEPARIN DRIP. RAMOS (ALL ROUND LOGGER) NOTIFIED
[2019-09-10 15:41] LABS: ABG BASE EXCESS 0.9 mmol/L; ABG OXYGEN SATURATION 96.8 % (92.0-98.5); ABG PCO2 53.6 mmHg (35.0-45.0); ABG PO2 90.7 mmHg (75.0-100.0); AaDO2 45.7 mmHg; COHb 0.9 % (0.5-1.5); MetHb 0.1 % (0.0-1.5); O2Hb 95.8 % (94.0-97.0); SITE, ABG Right Brachial; VENT MODE, BG NASAL CANNULA
[2019-09-10 16:11] LABS: *SPE A/G RATIO 0.7 (0.7-1.7); *SPE ALBUMIN 2.3 g/dL (2.9-4.4); *SPE ALPHA-1-GLOBULIN 0.4 g/dL (0.0-0.4); *SPE ALPHA-2-GLOBULIN 0.9 g/dL (0.4-1.0); *SPE GLOBULIN, TOTAL 3.1 g/dL (2.2-3.9); *SPE M-SPIKE Not Observed g/dL (Not Observed); *SPEGAMMA GLOBULIN 0.8 g/dL (0.4-1.8)
--- NOTE | 2019-09-10 18:32 | NUR ---
RN CLOSING NOTES PT REMAINS ON HEPARIN DRIP. NEXT PTT IN AM. FOR TRANSFER TO HIGHER LEVEL OF CARE FOR CARDIAC SURGERY EVAL. KEPT COMFORTABLE. CALL LIGHT WITHIN REACH. WILL ENDORSE FOR CONTINUITY OF CARE.
--- NOTE | 2019-09-10 19:27 | NUR ---
CLINICAL INFORMATICIST OPENING NOTES: Rec'd pt awake, A&Ox4 Bruneian speaking. On RA tolerating well. No SOB or respiratory distress noted. SR on tele monitor. IV sites on anterior and posterior LFA #18 patent and flushing. Dressings c/d/i. Heparin infusing at 1800 units/hr. Safety measures in place. Will continue to monitor.
[2019-09-10] MEDS: ATORVASTATIN 40 MG TABLET PO SCH (21:03)
[2019-09-11] VITALS (15 sets, daily range): BP systolic 133–181; BP diastolic 55–79
[2019-09-11] MEDS: IPRATROPIUM NEB FS 0.5 MG/2.5 ML AMPUL.NEB NEB SCH ×3 (01:24→12:57)
--- NOTE | 2019-09-11 02:50 | NUR ---
RT NOTE PT REMOVED OFF BIPAP. PT CURRENTLY ON ROOM AIR AND TOLERATING WELL. NO DISTRESS NOTED. MIL ERIC.
[2019-09-11 05:07] LABS: CALCIUM, SERUM 8.4 mg/dL (8.5-10.1); CREATININE 1.9 mg/dL (0.6-1.3); MAGNESIUM 1.8 mg/dL (1.8-2.4); PHOSPHORUS 4.1 mg/dL (2.5-4.9); POTASSIUM 4.2 mmol/L (3.5-5.1)
[2019-09-11 05:20] LABS: BASOPHILS % (AUTO) 0.2 % (0.0-2.0); EOSINOPHILS % (AUTO) 1.5 % (0.0-6.0); HEMATOCRIT 35 % (39-51); HEMOGLOBIN 11.3 g/dL (13.5-17.5); LYMPHOCYTES % (AUTO) 16.1 % (20.0-44.0); MEAN CORPUSCULAR HGB CONC 33 g/dl (31.0-36.0); MEAN CORPUSCULAR VOLUME 87 fL (80-96); MONOCYTES # (AUTO) 0.7 /CMM (0.1-1.30); MONOCYTES % (AUTO) 11.7 % (2.0-12.0); NEUTROPHILS # (AUTO) 4.4 /CMM (1.8-8.9); NEUTROPHILS % (AUTO) 70.5 % (43.0-81.0); PLATELET COUNT (AUTO) 148 /CMM (150-450); RED BLOOD CELL COUNT(AUTO) 3.97 MIL/uL (4.5-6.0); WHITE BLOOD COUNT (AUTO) 6.2 K/uL (4.3-11.0)
[2019-09-11] MEDS: HEPARIN INFUSION/D5W 500 ML IV PRN (06:02)
--- NOTE | 2019-09-11 06:49 | NUR ---
LINOLEUM LAYER CLOSING NOTES: Pt on 1L/min NC tolerating well. No SOB or respiratory distress noted throughout shift. No acute changes noted throughout shift. Heparin continues to infuse at 1800 units/hr. No pain noted. Kept clean and dry. Safety measures in place. Will endorse to AM nurse for RODDY.
--- NOTE | 2019-09-11 07:42 | NUR ---
RN OPENING NOTES RECEIVED PATIENT AWAKE AND RESTING COMFORTABLY, NO S/SX OF DISTRESS AT THIS TIME. SHE IS AOX2-3, VERBAL BUT LOW VOLUME DUE TO RECENT EXTUBATION, AND BED BOUND. SHE IS ON 6L OXYGEN VIA NC, TOLERATING WELL, NO SOB OR RESP DISTRESS. CONTACT AND DROPLET ISO HAVE BEEN IMPLEMENTED AND ENFORCED FOR COVID 19. TELE MONITOR SHOWING SR. STAGE 2 ULCER PRESENT ON SACRUM WITH ABD FOLD RASH. PT CURRENTLY NPO, SWALLOW EVAL PENDING. IV SITE ON MEGGAN MIDLINE, RCW HD CATH, AND R FEMORAL TLC ARE PATENT AND INTACT. EDEMA PRESENT ON BUE, WEEPING FLUID. SAFETY MEASURES HAVE BEEN IMPLEMENTED, CALL LIGHT IS WITHIN REACH, BED IS IN LOWEST AND LOCKED POSITION, SIDE RIALS UP X2, WILL CONTINUE TO MONITOR FOR ANY CHANGES. Addendum: 09/11/19 at 0747 by LUPE RILEY RN DOCUMENTED FOR WRONG PT, DISREGARD NOTE. HF
--- NOTE | 2019-09-11 07:47 | NUR ---
RN OPENING NOTES RECEIVED PATIENT RESTING IN BED COMFORTABLY, NO S.SX OF DISTRESS. PT IS AOX4, VERBAL, ENGLISH SPEAKING AND IS AMBULATORY WITH ASSIST. HE IS ON 1L OXYGEN FOR COMFORT VIA NC, TOLERATING WELL. TELE MONITOR SHOWING SR. SKIN IS INTACT. LUNGS SOUND CLEAR UPON AUSCULTATION, IV SITE ON ANTERIOR AND POSTERIOR LFA 18 G ARE PATENT AND INTACT, INFUSING HEPARIN DRIP AT 1800 UNITS PER HOUR PER PROTOCOL. RECENT PTT OF 47 THIS AM, NO CHANGES NECESSARY TO DRIP RATE. SAFETY MEASURES HAVE BEEN IMPLEMENTED, CALL LIGHT IS WITHIN REACH, BED IS IN LOWEST AND LOCKED POSITION, SIDE RIALS UP X2, WILL CONTINUE TO MONITOR FOR ANY CHANGES.
[2019-09-11] MEDS: GLIMEPIRIDE 4 MG TABLET PO SCH (08:09)
[2019-09-11] MEDS: GABAPENTIN 300 MG CAPSULE PO SCH ×2 (08:09→13:09)
[2019-09-11] MEDS: ASPIRIN EC 81 MG TABLET.DR PO SCH (08:09)
[2019-09-11] MEDS: GEMFIBROZIL 600 MG TABLET PO SCH (08:09)
[2019-09-11] MEDS: PANTOPRAZOLE 40 MG TABLET.DR PO SCH (08:09)
[2019-09-11] MEDS: ESCITALOPRAM OXALATE (10 MG) 10 MG TABLET PO SCH (08:10)
[2019-09-11] MEDS: CARVEDILOL 6.25 MG TABLET PO SCH (08:10)
--- NOTE | 2019-09-11 11:26 | NUR ---
RN NOTES REPORT GIVEN TO RAMY JAEGER FOR RODDY AT [facility]. PT FAMILY MADE AWARE OF TRANSFER
[2019-09-11] MEDS ORDERED: HEPARIN SODIUM, PORCINE 5000 UNITS/1 ML VIAL IV ONE (13:00)
--- NOTE | 2019-09-11 13:20 | NUR ---
RN NOTES PATIENT HAS BEEN DISCHARGED FROM THE UNIT IN STABLE CONDITION TO [facility] FOR HIGHER LEVEL OF CARE. EXIT CARE WAS UTILIZED. BELONGINGS LIST WAS CHECKED OFF, MED RECON WAS COMPLETED. PER DR. ROBLES, ADMINISTERED 3000 UNIT BOLUS OF HEPARIN ONCE HEPARIN DRIP WAS DC'D. PT LEFT VIA EMT
== END 2019-09-11 13:20 | disposition short-term general hospital (02) | DRG 280 ==
LOC: ER 15:42 → ICU 16:53
PROVIDERS: ADMIT Internal Medicine
PROC: 5A09357 Assistance with Respiratory Ventilation, Less than 24 Consecutive Hours, Continuous Positive Airway Pressure (ICD-10-PCS; 2019-09-08)
PROC: 4A023N7 Measurement of Cardiac Sampling and Pressure, Left Heart, Percutaneous Approach (ICD-10-PCS; principal; 2019-09-10)
PROC: B211YZZ Fluoroscopy of Multiple Coronary Arteries using Other Contrast (ICD-10-PCS; 2019-09-10)
DX: I21.4 Non-ST elevation (NSTEMI) myocardial infarction (principal); N17.0 Acute kidney failure with tubular necrosis; J96.01 Acute respiratory failure with hypoxia; J96.02 Acute respiratory failure with hypercapnia; I50.43 Acute on chronic combined systolic (congestive) and diastolic (congestive) heart failure; E87.1 Hypo-osmolality and hyponatremia; E66.2 Morbid (severe) obesity with alveolar hypoventilation; I13.0 Hypertensive heart and chronic kidney disease with heart failure and stage 1 through stage 4 chronic kidney disease, or unspecified chronic kidney disease; E78.5 Hyperlipidemia, unspecified; D50.9 Iron deficiency anemia, unspecified; I25.10 Atherosclerotic heart disease of native coronary artery without angina pectoris; Z95.2 Presence of prosthetic heart valve; Z79.01 Long term (current) use of anticoagulants; Z68.33 Body mass index [BMI] 33.0-33.9, adult; Z95.5 Presence of coronary angioplasty implant and graft; Z87.891 Personal history of nicotine dependence; J44.9 Chronic obstructive pulmonary disease, unspecified; N18.9 Chronic kidney disease, unspecified; E11.22 Type 2 diabetes mellitus with diabetic chronic kidney disease; I35.0 Nonrheumatic aortic (valve) stenosis
CPT/HCPCS: 36415; 36600; 71045-TC; 76770-TC; 80048-TC; 80053-TC; 80061-TC; 80076-TC; 81000-TC; 82550-TC; 82553; 82570-TC; 82728-TC; 82803-TC; 83540-TC; 83605-TC; 83735-TC; 83880; 83970; 84100-TC; 84155; 84155-TC; 84165; 84300-TC; 84443-TC; 84484-TC; 85025-TC; 85610-TC; 85730-TC; 87040-TC; 87081-TC; 87086-TC; 93307-TC; 94003-TC; 94760-TC; 94799-TC; 99082-TC; C1887; G0378; G0500; J1644; J1940; J2270; J2405; J3010; J3490; Q9967

== ENCOUNTER 2021-03-01 05:31 | Inpatient (IN) | payer MEDICARE, OTHER ==
[~2021-03-01] VITALS: Ht 165.1 cm; Wt 93.0 kg
[~2021-03-01 05:31] MED LIST changes: +ASPI-1420 PO; -ATOR10TA PO; +ATOR20TA PO; -CARV25TA2 PO; +CHOL100040 PO; -CLON0.1T PO; +CLON0.5T4 PO; +DEXL60CA3 PO; +DOXA4TAB19 PO; +DULA0.75 SQ; +ESCI20TA PO; +FLUT1BLS6 INH; +FURO40TA5 PO; +GABA300C PO; +GEMF600T90 PO; +GLIM4TAB37 PO; -HYDR-4077 PO; +HYDR100T27 PO; -HYDR25TA4 PO; +LINA145C PO; +LOSA100T31 PO; +METF-442 PO; +NIFE-34 PO; -OLME40TA12 PO; +ROFL500T PO; +WARF-58 PO; -WARF4TAB72 PO
[2021-03-01] MEDS ORDERED: ALBUTEROL FS 2.5 MG/3 ML VIAL.NEB ONE (05:48)
[2021-03-01] MEDS ORDERED: IPRATROPIUM NEB FS 0.5 MG/2.5 ML AMPUL.NEB ONE (05:48)
[2021-03-01] MEDS ORDERED: ALBUTEROL FS 2.5 MG/3 ML VIAL.NEB NEB ONE (06:00)
[2021-03-01] MEDS ORDERED: DEXAMETHASONE SOD PHOSPHATE 10 MG/ML VIAL IV ONE (06:00)
[2021-03-01] MEDS ORDERED: IPRATROPIUM NEB FS 0.5 MG/2.5 ML AMPUL.NEB NEB ONE (06:00)
--- NOTE | 2021-03-01 06:00 | NUR ---
PATIENT BIBRA 102 FROM HOME C/O SOB FOR THE PAST 2 DAYS. PATIENT IS A/O X 4, RR LABORED, + SOB, PATIENT IS A/O X 4, RR EVEN AND UNLABORED, NO SOB NOTED. PATIENT CONNECTED TO WARD ATTENDANT AND POX.
--- NOTE | 2021-03-01 06:01 | NUR ---
BLOOD WORK COLLECTED SENT TO LAB
--- NOTE | 2021-03-01 06:02 | NUR ---
COVID SWAB COLLECTED SENT TO LAB
--- NOTE | 2021-03-01 06:30 | NUR ---
CALLED PHARMACIST TO HAVE DECADRON REPLENISHED.
--- NOTE | 2021-03-01 06:39 | NUR ---
RAD AT BEDSIDE
--- NOTE | 2021-03-01 06:40 | NUR ---
MRSA SWAB COLLECTED AND SENT TO LAB. PATIENT'S BELONGINGS LIST DONE.
--- NOTE | 2021-03-01 06:55 | NUR ---
CALL FOR UPDATES TISH [phone]
[2021-03-01 07:33] LABS: BASOPHILS % (AUTO) 0.2 % (0.0-2.0); EOSINOPHILS % (AUTO) 1.1 % (0.0-6.0); HEMATOCRIT 29 % (39-51); HEMOGLOBIN 9.4 g/dL (13.5-17.5); LYMPHOCYTES # (AUTO) 0.9 K/uL (0.8-4.8); LYMPHOCYTES % (AUTO) 10.9 % (20.0-44.0); MEAN CORPUSCULAR HGB CONC 33 g/dl (31.0-36.0); MEAN CORPUSCULAR VOLUME 90 fL (80-96); MONOCYTES # (AUTO) 0.5 K/uL (0.1-1.30); MONOCYTES % (AUTO) 5.7 % (2.0-12.0); NEUTROPHILS # (AUTO) 6.7 K/uL (1.8-8.9); NEUTROPHILS % (AUTO) 82.1 % (43.0-81.0); PLATELET COUNT (AUTO) 170 K/uL (150-450); RED BLOOD CELL COUNT(AUTO) 3.18 MIL/uL (4.5-6.0); WHITE BLOOD COUNT (AUTO) 8.1 K/uL (4.3-11.0)
[2021-03-01] MEDS ORDERED: FUROSEMIDE 40 MG/4 ML VIAL ONE (08:16)
[2021-03-01] MEDS ORDERED: DEXAMETHASONE SOD PHOSPHATE 4 MG/ML VIAL ONE (08:16)
[2021-03-01] MEDS ORDERED: FUROSEMIDE 40 MG/4 ML VIAL IV ONE (08:30)
[2021-03-01 08:31] LABS: ALANINE AMINOTRANSFERASE 40 U/L (12-78); ALBUMIN 2.5 g/dL (3.4-5.0); ALKALINE PHOSPHATASE 175 U/L (46-116); ASPARTATE AMINOTRANSFERASE 13 U/L (15-37); BILIRUBIN,DIRECT 0.1 mg/dL (0.0-0.2); BILIRUBIN,TOTAL 0.3 mg/dL (0.2-1.0); CARBON DIOXIDE 27 mmol/L (21-32); CHLORIDE 104 mmol/L (98-107); CREATININE 1.8 mg/dL (0.6-1.3); GLUCOSE 121 mg/dL (74-106); POTASSIUM 4.3 mmol/L (3.5-5.1); SODIUM SERUM 138 mmol/L (136-145); TOTAL PROTEIN, SERUM 6.6 g/dL (6.4-8.2); UREA NITROGEN, BLOOD 69 mg/dL (7-18)
--- NOTE | 2021-03-01 09:32 | NUR ---
LAB CALLED. COVID POSITIVE.
[2021-03-01] MEDS ORDERED: HOME MED MISCELLANEOUS XX SCH (10:30)
[2021-03-01] MEDS ORDERED: PHENYLEPHRINE HCL IN 0.9% NACL 50 MG in PREMIX 1 EA IV PRN ×2 (10:30)
[2021-03-01] MEDS ORDERED: LINZESS 145 MCG PO SCH (10:30)
[2021-03-01] MEDS ORDERED: ONDANSETRON HCL/PF 4 MG/2 ML VIAL IVP PRN (11:00)
[2021-03-01] MEDS ORDERED: DEXTROSE 50%-WATER 50 ML DISP.SYRIN IV PRN (11:00)
[2021-03-01 11:09] LABS: D-DIMER 0.45 mg/L(FEU (0.17-0.50)
[2021-03-01 11:20] LABS: C-REACTIVE PROTEIN 3.7 mg/dL (0.0-0.9)
[2021-03-01] MEDS: BLOOD SUGAR DIAGNOSTIC 1 EACH STRIP IN SCH ×3 (11:48→22:07)
[2021-03-01] MEDS: INSULIN REGULAR, HUMAN 100 UNIT/ML 3 ML VIAL SQ PRN ×3 (12:47→22:10)
--- NOTE | 2021-03-01 15:09 | NUR ---
GOING TO 115.2
--- NOTE | 2021-03-01 15:44 | NUR ---
REPORT GIVEN TO NURSE SMART FOR RODDY
--- NOTE | 2021-03-01 15:57 | NUR ---
PT TRANSFERRED TO [facility] 115-2 VIA ACLS PROTOCOL. PT TOLERATING O2 5LPM VIA N/C WELL AT 97%. VSS.
[2021-03-01 16:00] VITALS: BP 190/82
--- NOTE | 2021-03-01 16:30 | NUR ---
ADMIT NOTES RECEIVED PT FROM ER, WITH DX OF COVID PNA, ACUTE HYPOXIC RESP. FAILURE. PT CAME TO UNIT IN STABLE CONDITION. NO SOB OR DISTRESS NOTED AR THIS TIME. RESPIRATIONS UNLABORED. PT ON TELE MONITOR HR 90. PT DENIES CHEST PAIN. PT IS A/0 X 3, ANGUILLAN SPEAKING. SKIN IS INTACT. CCHO DIET. IV ACCESS ON RFA #18G. ALL SAFETY MEASURES IN PLACE, BED IN LOWEST LOCKED POSITION, SR UP X 3, CALL LIGHT WITHIN REACH. WILL CONTINUE TO MONITOR.
[2021-03-01] MEDS: hydrALAZINE HCL 50 MG TABLET PO PRN (16:44)
--- NOTE | 2021-03-01 18:21 | NUR ---
CLOSING NOTES PT IS RESTING COMFORTABLY IN BED, A/O X3 [place] CITIZEN SPEAKING. PT ON CCHO DIET. PT ON 5L NC SATING AT 97%. PT HAS RFA #18G. NO SIGNS OF SOB NOTED AT THIS TIME. NO C/O PAIN OR DISTRESS NOTED AT THIS TIME. TOLERATED ALL TREATMENTS WELL. ALL NEEDS MET DURING SHIFT. ALL SAFETY MEASURES IN PLACE, BED IN LOWEST LOCKED POSITION, SIDE RAILS UP X3, CALL LIGHT WITHIN REACH. WILL ENDORSE TO TRIMMER TAILER NURSE FOR RODDY.
[2021-03-01] MEDS: ALBUTEROL SULFATE 8 GM HFA.AER.AD IH PRN ×2 (18:46→22:52)
--- NOTE | 2021-03-01 19:45 | NUR ---
RN OPENING NOTES: RECEIVED PT IN BED ALERT, AWAKE, ORIENTED X3, VERBALLY RESPONSIVE. BREATHING EVEN AND UNLABORED. ON 5L VIA N/C AND PT TOLERATED WELL. NO C/O PAIN OR DISCOMFORT. NO ACUTE DISTRESS. IV ACCESS ON RFA #18G. NO C/O PAIN OR DISCOMFORT. NO ACUTE DISTRESS. ALL SAFETY MEASURES IN PLACE, BED IN LOWEST LOCKED POSITION, SIDE RAILS UP X 3, PLACE CALL LIGHT WITHIN REACH. WILL CONTINUE TO MONITOR.
[2021-03-01 20:00] VITALS: BP 154/73
[2021-03-01] MEDS: ATORVASTATIN 10 MG TABLET PO SCH (21:49)
--- NOTE | 2021-03-01 22:12 | NUR ---
RN NOTES: PT'S BLOOD SUGAR 205, 4 UNITS REGULAR INSULIN GIVEN PER SLIDING SCALE. NO S/S OF HYPER/HYPOGLYCEMIA. WILL CONTINUE TO MONITOR
[2021-03-01] MEDS: clonazePAM 0.5 MG TABLET PO PRN (23:00)
--- NOTE | 2021-03-01 23:00 | NUR ---
RN NOTES: PT C/O ANXIETY, SHOWING RESTLESSNESS. CLONAZEPAM 0.5 MG TAB GIVEN AND PT TOLERATED WELL. WILL CONTINUE TO MONITOR
--- NOTE | 2021-03-01 23:20 | NUR ---
RN NOTES: PT'S SON SOL BRUMFIELD CALLED, HE WANTS TO ORDER, ALBUTEROL, CPT, MUCINEX FOR HIS FATHER. MADE AWARE DR. HARMAN. ALSO HE WILL BRING ALL THE HOME MEDICATIONS.
[2021-03-02] VITALS: BP 183/70
--- NOTE | 2021-03-02 00:15 | NUR ---
RN NOTES: LAB CALLED, PT BLOOD CULTURES SHOW GRAM (-) RODS IN ALL BOTTLE. NOTIFIED DR. HARMAN. ORDER, ROCEPHIN 1GM Q DAILY AND COLLECT URINALYSIS, URINE CULTURE, SPUTUM CULTURE. ALL ORDER NOTED AND CARRIED OUT.
[2021-03-02] MEDS: hydrALAZINE HCL 50 MG TABLET PO PRN (00:44)
--- NOTE | 2021-03-02 00:52 | NUR ---
RN NOTES: PT'S BLOOD PRESSURE 183/70, PULSE 82. HYDRALAZINE 100 MG 2 TAB GIVEN PER PRN ORDER AND PT TOLERATED WELL. NO S/S OF HYPER/HYPOTENSION. WILL CONTINUE TO MONITOR
[2021-03-02] MEDS ORDERED: CEFTRIAXONE 1 G VIAL ONE (01:47)
[2021-03-02] MEDS ORDERED: CEFTRIAXONE 1 G in IV D5W 50 ML IV SCH ×3 (02:00→23:00)
[2021-03-02 04:00] VITALS: BP 131/83
--- NOTE | 2021-03-02 06:55 | NUR ---
RN CLOSING NOTES: PT ASLEEP IN BED BUT EASILY AROUSABLE, ALERT, AWAKE, ORIENTED X3, VERBALLY RESPONSIVE. BREATHING EVEN AND UNLABORED. ON 5L VIA N/C , O2 SAT 95%. AND PT TOLERATED WELL. NO C/O PAIN OR DISCOMFORT. NO ACUTE DISTRESS. IV ACCESS ON RFA #18G. NO C/O PAIN OR DISCOMFORT. NO ACUTE DISTRESS. ALL DUE MEDICATIONS GIVEN ORDER. COLLECTED URINE CULTURE AND SPUTUM CULTURE. ALL SAFETY MEASURES IN PLACE, BED IN LOWEST LOCKED POSITION, SIDE RAILS UP X 3, PLACE CALL LIGHT WITHIN REACH. WILL ENDORSE TO MORNING SHIFT NURSE.
[2021-03-02] MEDS: BLOOD SUGAR DIAGNOSTIC 1 EACH STRIP IN SCH ×4 (07:30→21:48)
[2021-03-02 07:41] LABS: BASOPHILS % (AUTO) 0.1 % (0.0-2.0); EOSINOPHILS % (AUTO) 0.1 % (0.0-6.0); HEMATOCRIT 29 % (39-51); HEMOGLOBIN 9.4 g/dL (13.5-17.5); LYMPHOCYTES # (AUTO) 0.8 K/uL (0.8-4.8); LYMPHOCYTES % (AUTO) 11.7 % (20.0-44.0); MEAN CORPUSCULAR HGB CONC 33 g/dl (31.0-36.0); MEAN CORPUSCULAR VOLUME 89 fL (80-96); MONOCYTES # (AUTO) 0.5 K/uL (0.1-1.30); MONOCYTES % (AUTO) 7.2 % (2.0-12.0); NEUTROPHILS # (AUTO) 5.2 K/uL (1.8-8.9); NEUTROPHILS % (AUTO) 80.9 % (43.0-81.0); PLATELET COUNT (AUTO) 194 K/uL (150-450); RED BLOOD CELL COUNT(AUTO) 3.24 MIL/uL (4.5-6.0); WHITE BLOOD COUNT (AUTO) 6.4 K/uL (4.3-11.0)
[2021-03-02 08:00] VITALS: BP 157/54
[2021-03-02 08:15] LABS: ALBUMIN 2.2 g/dL (3.4-5.0); BILIRUBIN,TOTAL 0.3 mg/dL (0.2-1.0); CALCIUM, SERUM 8.6 mg/dL (8.5-10.1); CREATININE 1.8 mg/dL (0.6-1.3); POTASSIUM 5.1 mmol/L (3.5-5.1); TOTAL PROTEIN, SERUM 6.4 g/dL (6.4-8.2)
[2021-03-02 08:38] LABS: BILIRUBIN,URINE NEGATIVE (NEGATIVE); COLOR,URINE YELLOW (YELLOW); LEUKOCYTE ESTERASE ,URINE NEGATIVE (NEGATIVE); NITRITE, URINE NEGATIVE (NEGATIVE); PROTEIN,URINE >=300 mg/dl (NEGATIVE); UGLUCOSE 250 MG/DL mg/dL (NEGATIVE); UROBILINOGEN,URINE 0.2 EU/dL (0.2)
[2021-03-02] MEDS ORDERED: NIFEdipine XL (30MG) 30 MG TAB PO SCH (09:00)
[2021-03-02] MEDS: CHOLECALCIFEROL 1,000 UNIT TABLET (VIT D3) PO SCH (09:30)
[2021-03-02] MEDS: DEXAMETHASONE SOD PHOSPHATE 4 MG/ML VIAL IV SCH (09:30)
[2021-03-02] MEDS: GEMFIBROZIL 600 MG TABLET PO SCH (09:30)
[2021-03-02] MEDS: DOXAZOSIN MESYLATE (4 MG) 4 MG TABLET PO SCH (09:31)
[2021-03-02] MEDS: ASPIRIN EC 81 MG TABLET.DR PO SCH (09:31)
[2021-03-02] MEDS: PANTOPRAZOLE 40 MG TABLET.DR PO SCH (09:32)
[2021-03-02] MEDS: ESCITALOPRAM OXALATE (10 MG) 10 MG TABLET PO SCH (09:32)
--- NOTE | 2021-03-02 10:30 | NUR ---
RN NOTE DUE TO PREVIOUS RN DOES NOT FEEL WELL , JUST RECEIVED THE PT,. WILL START PAST DUE MED.
[2021-03-02] MEDS: NIFEdipine XL (30MG) 30 MG TAB PO SCH (11:31)
[2021-03-02] MEDS: hydrALAZINE HCL 50 MG TABLET PO SCH ×3 (11:32→17:01)
[2021-03-02] MEDS: NITROGLYCERIN 30 GM TUBE TP SCH ×2 (11:34→20:58)
[2021-03-02] MEDS: WARFARIN SODIUM 5 MG TABLET PO SCH (11:36)
[2021-03-02] MEDS: FLUTICASONE/VILANTEROL 1 EACH BLST.W.DEV IH SCH (11:38)
[2021-03-02 12:00] VITALS: BP 147/57
[2021-03-02] MEDS: INSULIN REGULAR, HUMAN 100 UNIT/ML 3 ML VIAL SQ PRN ×3 (12:04→21:54)
[2021-03-02 12:37] LABS: BACTERIA,URINE Few /HPF (None Seen); SQUAMOUS EPITHELIAL CELL,UR Rare /HPF (None Seen); WBC,URINE 0-2 /HPF (0-3)
[2021-03-02 16:00] VITALS: BP 118/41
--- NOTE | 2021-03-02 19:35 | NUR ---
RN OPENING NOTES: RECEIVED PT IN BED ALERT, AWAKE, ORIENTED X3, VERBALLY RESPONSIVE. BREATHING EVEN AND UNLABORED. ON 5L VIA N/C AND PT TOLERATED WELL. COOPERATIVE WITH CARE. IV ACCESS ON RFA #18G. NO S/S OF INFILTRATIONS. NO C/O PAIN OR DISCOMFORT. NO ACUTE DISTRESS. ALL SAFETY MEASURES IN PLACE, BED IN LOWEST LOCKED POSITION, SIDE RAILS UP X 3, PLACE CALL LIGHT WITHIN REACH. WILL CONTINUE TO MONITOR.
[2021-03-02 20:00] VITALS: BP 126/46
--- NOTE | 2021-03-02 20:08 | NUR ---
RN CLOSING NOTES: PT ASLEEP IN BED BUT EASILY AROUSABLE, ALERT, AWAKE, ORIENTED X3, VERBALLY RESPONSIVE. BREATHING EVEN AND UNLABORED. ON 5L VIA N/C , O2 SAT 95%. AND PT TOLERATED WELL. NO C/O PAIN OR DISCOMFORT. NO ACUTE DISTRESS. IV ACCESS ON RFA #18G. NO C/O PAIN OR DISCOMFORT. NO ACUTE DISTRESS. ALL DUE MEDICATIONS GIVEN ORDER. . ALL SAFETY MEASURES IN PLACE, BED IN LOWEST LOCKED POSITION, SIDE RAILS UP X 3, PLACE CALL LIGHT WITHIN REACH. WILL ENDORSE TO NOC SHIFT NURSE.
[2021-03-02] MEDS: CEFEPIME 2 GM in IV D5W 100 ML IV SCH (20:35)
[2021-03-02] MEDS: clonazePAM 0.5 MG TABLET PO PRN (21:37)
[2021-03-02] MEDS: ATORVASTATIN 10 MG TABLET PO SCH (21:38)
--- NOTE | 2021-03-02 21:50 | NUR ---
RN NOTES: PT C/O ANXIETY, FEELING RESTLESSNESS. CLONAZEPAM 0.5 MG TAB GIVEN AND PT TOLERATED WELL. WILL CONTINUE TO MONITOR
[2021-03-03] VITALS: BP 110/45
--- NOTE | 2021-03-03 00:58 | NUR ---
RN NOTES: C/O UNABLE TO SLEEP. WANT TO TAKE SLEEPING MED. NOTIFIED ANA RIVERA. ORDER AMBIEN 5 MG TAB ONE TIME ONLY. ORDER NOTED AND CARRIED OUT. AMBIEN 5 MG TAB GIVEN ORDERED AND PT TOLERATED WELL. WILL CONTINUE TO MONITOR
[2021-03-03] MEDS ORDERED: ZOLPIDEM TARTRATE 5 MG TABLET PO ONE (01:00)
[2021-03-03 04:00] VITALS: BP 100/42
--- NOTE | 2021-03-03 06:40 | NUR ---
RN CLOSING NOTES: PT SLEEPING IN BED BUT EASILY AROUSABLE, ALERT, ORIENTED X3, VERBALLY RESPONSIVE. NO C/O SOB, BREATHING EVEN AND UNLABORED. ON 5L VIA N/C , O2 SAT 98%. AND PT TOLERATED WELL. NO C/O PAIN OR DISCOMFORT. NO ACUTE DISTRESS. IV ACCESS ON RFA #18G INTACT AND PATENT. NO S/S OF INFILTRATION. NO C/O PAIN OR DISCOMFORT. NO ACUTE DISTRESS. ALL DUE MEDICATIONS GIVEN ORDER. ALL SAFETY MEASURES IN PLACE, BED IN LOWEST LOCKED POSITION, SIDE RAILS UP X 3, PLACE CALL LIGHT WITHIN REACH. WILL ENDORSE TO MORNING SHIFT NURSE.
--- NOTE | 2021-03-03 07:30 | NUR ---
RN NOTE BLOOD SUGAR CHECKED, 111, NO INSULIN GIVEN
[2021-03-03] MEDS: PANTOPRAZOLE 40 MG TABLET.DR PO SCH (07:54)
[2021-03-03] MEDS: BLOOD SUGAR DIAGNOSTIC 1 EACH STRIP IN SCH ×4 (07:54→21:34)
[2021-03-03 08:00] VITALS: BP 125/52
[2021-03-03] MEDS: DEXAMETHASONE SOD PHOSPHATE 4 MG/ML VIAL IV SCH (09:13)
[2021-03-03] MEDS: ESCITALOPRAM OXALATE (10 MG) 10 MG TABLET PO SCH (09:14)
[2021-03-03] MEDS: CHOLECALCIFEROL 1,000 UNIT TABLET (VIT D3) PO SCH (09:14)
[2021-03-03] MEDS: NIFEdipine XL (30MG) 30 MG TAB PO SCH (09:14)
[2021-03-03] MEDS: hydrALAZINE HCL 50 MG TABLET PO SCH ×3 (09:15→17:04)
[2021-03-03] MEDS: DOXAZOSIN MESYLATE (4 MG) 4 MG TABLET PO SCH (09:16)
[2021-03-03] MEDS: GEMFIBROZIL 600 MG TABLET PO SCH (09:21)
[2021-03-03] MEDS: CEFEPIME 2 GM in IV D5W 100 ML IV SCH ×2 (09:21→20:39)
[2021-03-03] MEDS: ASPIRIN EC 81 MG TABLET.DR PO SCH (09:21)
[2021-03-03] MEDS: FLUTICASONE/VILANTEROL 1 EACH BLST.W.DEV IH SCH (09:22)
[2021-03-03] MEDS: WARFARIN SODIUM 5 MG TABLET PO SCH (09:22)
[2021-03-03] MEDS: NITROGLYCERIN 30 GM TUBE TP SCH ×2 (09:23→20:42)
[2021-03-03 12:00] VITALS: BP 115/51
[2021-03-03] MEDS: INSULIN REGULAR, HUMAN 100 UNIT/ML 3 ML VIAL SQ PRN ×3 (12:13→21:39)
[2021-03-03 16:00] VITALS: BP 133/54
--- NOTE | 2021-03-03 19:15 | NUR ---
RN OPENING NOTES PT AWAKE IN BED, ALERT/ABLE TO MAKE NEEDS KNOWN. DENIES ANY PAIN AT THIS TIME. DENIES SOB. ON O2 @5LPM VIA N/C AND MYNOR WELL. IV SITE: R-FA 18G INTACT/PATENT/FLUSHES WELL. PT IN NO ACUTE DISTRESS. SAFETY MEASURES IN PLACE BED IN LOWEST LOCKED POSITION, S/R UPX2, CALL LIGHT WITHIN REACH. WILL CONT TO MONITOR.
[2021-03-03 20:00] VITALS: BP 124/56
[2021-03-03] MEDS: ATORVASTATIN 10 MG TABLET PO SCH (21:34)
[2021-03-03] MEDS: clonazePAM 0.5 MG TABLET PO PRN (21:49)
[2021-03-04] VITALS: BP 130/58
[2021-03-04] MEDS: ACETAMINOPHEN 325 MG TABLET PO PRN (03:10)
[2021-03-04 04:00] VITALS: BP 134/56
[2021-03-04] MEDS: BLOOD SUGAR DIAGNOSTIC 1 EACH STRIP IN SCH ×4 (06:19→21:58)
--- NOTE | 2021-03-04 06:53 | NUR ---
RN CLOSING NOTES PT AWAKE IN BED, DENIES ANY PAIN OR ANY DISTRESS. CONTINUES ON O2@5LPM VIA NC. NO RESPIRATORY DISTRESS NOTED. IV SITE ON R-FA INTACT/PATENT/FLUSHES WELL. PROVIDED BEDSIDE COMMODE PER PT REQUEST. PT ALSO USING URINAL TO VOID. ALL NEEDS ATTENDED TO. SAFETY MEASURES MAINTAINED. Addendum: 03/04/21 at 0653 by JEFF KWON RN TELE MONITOR READING SR, HR 71.
[2021-03-04 07:54] LABS: CALCIUM, SERUM 9.5 mg/dL (8.5-10.1); CREATININE 2.6 mg/dL (0.6-1.3)
[2021-03-04 08:00] VITALS: BP 152/73
[2021-03-04] MEDS: NIFEdipine XL (30MG) 30 MG TAB PO SCH (08:40)
[2021-03-04] MEDS: CHOLECALCIFEROL 1,000 UNIT TABLET (VIT D3) PO SCH (08:41)
[2021-03-04] MEDS: PANTOPRAZOLE 40 MG TABLET.DR PO SCH (08:41)
[2021-03-04] MEDS: ASPIRIN EC 81 MG TABLET.DR PO SCH (08:41)
[2021-03-04] MEDS: hydrALAZINE HCL 50 MG TABLET PO SCH ×3 (08:42→16:48)
[2021-03-04] MEDS: DOXAZOSIN MESYLATE (4 MG) 4 MG TABLET PO SCH (08:42)
[2021-03-04] MEDS: DEXAMETHASONE SOD PHOSPHATE 4 MG/ML VIAL IV SCH (08:42)
[2021-03-04] MEDS: ESCITALOPRAM OXALATE (10 MG) 10 MG TABLET PO SCH (08:44)
[2021-03-04] MEDS: GEMFIBROZIL 600 MG TABLET PO SCH (08:47)
[2021-03-04] MEDS: NITROGLYCERIN 30 GM TUBE TP SCH ×2 (08:48→21:58)
[2021-03-04] MEDS: FLUTICASONE/VILANTEROL 1 EACH BLST.W.DEV IH SCH (09:00)
[2021-03-04] MEDS ORDERED: WARFARIN SODIUM 5 MG TABLET PO SCH (09:00)
[2021-03-04] MEDS: CEFEPIME 2 GM in IV D5W 100 ML IV SCH ×2 (09:06→20:06)
[2021-03-04] MEDS: WARFARIN SODIUM 1 MG TABLET PO SCH (09:35)
[2021-03-04 12:00] VITALS: BP 140/70
[2021-03-04] MEDS: INSULIN REGULAR, HUMAN 100 UNIT/ML 3 ML VIAL SQ PRN ×3 (12:48→22:12)
--- NOTE | 2021-03-04 13:16 | NUR ---
teletype operator note per dr rangel ok to give 500 ml bolus ,order carried out
--- NOTE | 2021-03-04 13:21 | NUR ---
RN NOTES PER LAB BUN 90. ISHAN WAKEFIELD AWARE.
[2021-03-04] MEDS ORDERED: IV NS 0.9% 500 ML IV ONE (13:30)
[2021-03-04 16:00] VITALS: BP 140/70
--- NOTE | 2021-03-04 17:00 | NUR ---
RN NOTE DR. WAKEFIELD AND I SPOKE WITH BRYANT WINSTON [phone] ABOUT CARE OF PLAN Addendum: 03/04/21 at 1850 by JACQUELYN ZAMARRIPA RN SPOKE ABOUT TREATMENT PLAN, MEDICATIONS THAT ARE BEING ADMINISTERED, AND DURATION OF STAY. TISH AGREED TO THE PLAN ANS STATED HE WILL CALL AND TRANSLATE TO ERIC HIS FATHER
--- NOTE | 2021-03-04 18:50 | NUR ---
RN CLOSING NOTES PT ASLEEP IN BED, ALERT/ABLE TO MAKE NEEDS KNOWN. DENIES ANY PAIN AT THIS TIME. DENIES SOB. ON O2 @5LPM VIA N/C AND MYNOR WELL. IV SITE: R-FA 18G INTACT/PATENT/FLUSHES WELL. PT IN NO ACUTE DISTRESS. SAFETY MEASURES IN PLACE BED IN LOWEST LOCKED POSITION, S/R UPX2, CALL LIGHT WITHIN REACH. WILL CONT TO MONITOR.
[2021-03-04 20:00] VITALS: BP 134/59
--- NOTE | 2021-03-04 20:00 | NUR ---
RN OPENING NOTE RECEIVED PATIENT IN BED. A/OX4, LANGUAGE BARRIER BUT ABLE TO MAKE BASIC NEEDS KNOWN. 5L OXYGEN VIA NASAL CANNULA. RESPIRATIONS ARE EVEN AND UNLABORED. NO SON NOTED. NO C/O PAIN AT THIS TIME. TELE MONITOR READS SINUS RHYTHM HR 76. NO APPARENT DISTRESS. IV ACCESS IN RFA#18 PATENT AND SALINE LOCKED. BED IS LOW AND LOCKED, HOB ELEVATED IN SEMI FOWLERS, SIDE RIALS UP X2, CALL LIGHT WITHIN REACH. ALARMS ON AND SAFETY PRECAUTIONS IN PLACE.
[2021-03-04] MEDS: QUETIAPINE FUMARATE 25 MG TABLET PO SCH (21:58)
[2021-03-04] MEDS: ATORVASTATIN 10 MG TABLET PO SCH (21:58)
[2021-03-05] VITALS: BP 124/53
[2021-03-05] MEDS ORDERED: ALBUMIN 25% 100 ML IV ONE (00:47)
[2021-03-05] MEDS: ALBUMIN 25% 25 GM in PREMIX 1 EA IV SCH ×3 (00:49→16:06)
[2021-03-05 04:00] VITALS: BP 137/51
--- NOTE | 2021-03-05 06:42 | NUR ---
RN CLOSING NOTE RESTING IN BED. A/OX4,REMAINS ON 5L OXYGEN VIA NASAL CANNULA. NO REPS DISTRESS. NO PAIN. TELE IS SINUS RHYTHM. RFA#18 MAINTAINED. BED REMAINS LOW AND LOCKED, HOB ELEVATED IN SEMI FOWLERS, SIDE RIALS UP X2, CALL LIGHT WITHIN REACH. ALARMS ON AND SAFETY PRECAUTIONS IN PLACE. WILL ENDORSE TO ONCOMING SHIFT.
--- NOTE | 2021-03-05 07:19 | NUR ---
RN OPENING NOTE RECEIVED PATIENT IN BED, A/OX3-4. ABLE TO MAKE NEEDS KNOWN. PATIENT IS ON OXYGEN 5L/MIN VIA NASAL CANNULA WITH EVEN AND UNLABORED BREATHING. NO RESPIRATORY DISTRESS NOTED AT THIS TIME BUT NOTED SOME EFFORT WHEN SPEAKING CONTINUOUSLY. OXYGEN SATURATION WNL. NO C/O PAIN. PATIENT ON TELE MONITOR READS SR. WITH RIGTH FORE ARM IV ACCESS, PATENT AND INTACT, ON SALINE LOCK. SAFETY MEASURES ENSURED WITH BED IN LOW AND LOCKED, HOB ELEVATED IN SEMI FOWLERS, SIDE RIALS UP X3, AKBAR LIGHT WITHIN REACH. ALARMS ON AND SAFETY MEASURES IN PLACE. WILL CONTINUE TO MONITOR PATIENT.
[2021-03-05] MEDS: BLOOD SUGAR DIAGNOSTIC 1 EACH STRIP IN SCH ×4 (07:58→21:24)
[2021-03-05 08:00] VITALS: BP 140/58
[2021-03-05 08:00] LABS: EOSINOPHILS % (AUTO) 0.4 % (0.0-6.0); HEMATOCRIT 28 % (39-51); LYMPHOCYTES # (AUTO) 0.9 K/uL (0.8-4.8); LYMPHOCYTES % (AUTO) 13.7 % (20.0-44.0); MEAN CORPUSCULAR HGB CONC 32 g/dl (31.0-36.0); MEAN CORPUSCULAR VOLUME 90 fL (80-96); MONOCYTES # (AUTO) 0.5 K/uL (0.1-1.30); MONOCYTES % (AUTO) 7.1 % (2.0-12.0); NEUTROPHILS # (AUTO) 5.4 K/uL (1.8-8.9); NEUTROPHILS % (AUTO) 78.8 % (43.0-81.0); PLATELET COUNT (AUTO) 172 K/uL (150-450); WHITE BLOOD COUNT (AUTO) 6.9 K/uL (4.3-11.0)
[2021-03-05 08:37] LABS: CALCIUM, SERUM 8.8 mg/dL (8.5-10.1); CREATININE 2.5 mg/dL (0.6-1.3); POTASSIUM 5.2 mmol/L (3.5-5.1)
[2021-03-05] MEDS: PANTOPRAZOLE 40 MG TABLET.DR PO SCH (09:10)
[2021-03-05] MEDS: hydrALAZINE HCL 50 MG TABLET PO SCH ×3 (09:11→17:09)
[2021-03-05] MEDS: DEXAMETHASONE SOD PHOSPHATE 10 MG/ML VIAL IV SCH (09:11)
[2021-03-05] MEDS: ASPIRIN EC 81 MG TABLET.DR PO SCH (09:12)
[2021-03-05] MEDS: CHOLECALCIFEROL 1,000 UNIT TABLET (VIT D3) PO SCH (09:12)
[2021-03-05] MEDS: ESCITALOPRAM OXALATE (10 MG) 10 MG TABLET PO SCH (09:12)
[2021-03-05] MEDS: DOXAZOSIN MESYLATE (4 MG) 4 MG TABLET PO SCH (09:12)
[2021-03-05] MEDS: NIFEdipine XL (30MG) 30 MG TAB PO SCH (10:19)
[2021-03-05] MEDS: NITROGLYCERIN 30 GM TUBE TP SCH ×2 (10:24→21:20)
[2021-03-05] MEDS: CEFEPIME 2 GM in IV D5W 100 ML IV SCH ×2 (10:25→21:12)
[2021-03-05] MEDS: FLUTICASONE/VILANTEROL 1 EACH BLST.W.DEV IH SCH (10:56)
[2021-03-05 12:00] VITALS: BP 140/60
[2021-03-05] MEDS: clonazePAM 0.5 MG TABLET PO PRN ×2 (13:36→22:48)
--- NOTE | 2021-03-05 13:40 | NUR ---
RN NOTE PATIENT COMPLAINED OF CHEST PAIN. PATIENT DESCRIBED IT SHARP PAIN THAT SUDDENLY STARTED. PAIN MORE INTENSE WHEN TAKING DEEP BREATHS. PATIENT WITH HISTORY OF CABG AND CAD, ON NITROGLYCERINE PATCH. ENCOURAGED TO DO DEEP BREATHING EXERCISES. DR. BROOKS NOTIFIED. READING SR 80'S ON THE TELE MONITOR. WITH ORDERS FOR STAT EKG. BP 140/59, HR 89, RR 21, T 98.2 OXYGEN SAT AT 97%. EKG DONE AND NOTIFIED. PER MD NO SIGNIFICANT CHANGE. CONSIDERING COSTO CHONDRIC PAIN. CLONAZEPAM GIVEN TO RELAX PATIENT. SON NOTIFIED.
[2021-03-05] MEDS ORDERED: SODIUM POLYSTYRENE SULFONATE 15 G/60 ML BOTTLE PO ONE (14:00)
[2021-03-05] MEDS ORDERED: GUAIFENESIN 300 MG/15 ML UDC PO PRN (14:00)
[2021-03-05] MEDS ORDERED: SODIUM POLYSTYRENE SULFONATE 15 G/60 ML BOTTLE ONE (14:03)
[2021-03-05] MEDS: ACETAMINOPHEN 325 MG TABLET PO PRN (14:28)
[2021-03-05 16:00] VITALS: BP 143/57
[2021-03-05] MEDS: WARFARIN SODIUM 1 MG TABLET PO SCH (17:13)
[2021-03-05] MEDS: INSULIN REGULAR, HUMAN 100 UNIT/ML 3 ML VIAL SQ PRN ×2 (18:25→21:27)
--- NOTE | 2021-03-05 18:46 | NUR ---
RN CLOSING NOTE PATIENT IN BED, A/OX3-4. ABLE TO MAKE NEEDS KNOWN. PATIENT IS ON OXYGEN 5L/MIN VIA NASAL CANNULA WITH EVEN AND UNLABORED BREATHING. NO RESPIRATORY DISTRESS NOTED AT THIS TIME BUT NOTED SOME EFFORT WHEN SPEAKING CONTINUOUSLY. OXYGEN SATURATION WNL. NO C/O PAIN. PATIENT ON TELE MONITOR READS SR. WITH RIGTH FORE ARM IV ACCESS, PATENT AND INTACT, ON SALINE LOCK. SAFETY MEASURES ENSURED WITH BED IN LOW AND LOCKED, HOB ELEVATED IN SEMI FOWLERS, SIDE RIALS UP X3, AKBAR LIGHT WITHIN REACH. ALARMS ON AND SAFETY MEASURES IN PLACE. WILL ENDORSE TO NEXT SHIFT FOR CONTINUITY OF CARE.
--- NOTE | 2021-03-05 19:10 | NUR ---
RN NOTES RECEIVED REPORT FROM MORNING NURSING PATIENT A/O X3 PRYDEINIG SPEAKING. WITH OXYGEN INHALATION AT 3 LPM VIA NC TOLERATING WELL SATING 95% NO SOB NOT IN DISTRESS AT THIS TIME. WITH IV ACCESS AT RFA #18 FLUSHES WELL. VITALS SIGNS TAKEN AND RECORDED. ALL SAFETY MEASURES IN PLACE AT ALL TIMES. CALL LIGHT WITHIN REACH. HOB ELEVATED. BED ON LOWEST POSITION AND LOCKED. WILL CONTINUE TO MONITOR. PATIENT COVID POSITIVE.
[2021-03-05 20:00] VITALS: BP 135/56
[2021-03-05] MEDS: ATORVASTATIN 10 MG TABLET PO SCH (21:25)
[2021-03-05] MEDS: QUETIAPINE FUMARATE 25 MG TABLET PO SCH (21:25)
--- NOTE | 2021-03-05 22:00 | NUR ---
RN NOTES BS 185 MG/DL 3 UNITS REGULAR INSULIN GIVEN ORDERED. WILL CONTINUE TO MONITOR PATIENT COMFORTABLE IN BED.
[2021-03-06] VITALS: BP 133/66
[2021-03-06 04:00] VITALS: BP 116/56
--- NOTE | 2021-03-06 07:31 | NUR ---
RN NOTES PATIENT IN BED, A/OX3-4. ABLE TO MAKE NEEDS KNOWN. PATIENT IS ON OXYGEN 3L/MIN VIA NASAL CANNULA WITH EVEN AND UNLABORED BREATHING. NO RESPIRATORY DISTRESS NOTED AT THIS TIME BUT NOTED SOME EFFORT WHEN SPEAKING CONTINUOUSLY. OXYGEN SATURATION WNL. NO C/O PAIN. PATIENT ON TELE MONITOR READS SR. WITH RIGTH FORE ARM IV ACCESS, PATENT AND INTACT, ON SALINE LOCK. SAFETY MEASURES ENSURED WITH BED IN LOW AND LOCKED, HOB ELEVATED IN SEMI FOWLERS, SIDE RIALS UP X3, AKBAR LIGHT WITHIN REACH. ALARMS ON AND SAFETY MEASURES IN PLACE. WILL ENDORSE TO NEXT SHIFT FOR CONTINUITY OF CARE.
--- NOTE | 2021-03-06 07:34 | NUR ---
PUNCH CARD OPERATOR OPENING NOTES RECEIVED PATIENT IN BED, A/OX3, ON OXYGEN 2L/MIN VIA NASAL CANNULA WITH EVEN AND UNLABORED BREATHING. NO COMPLAINTS OF SOB OR PAIN AT THIS TIME. PATIENT ON TELE MONITOR READS SR. WITH RIGHT FOREARM IV ACCESS SALINE LOCK. SAFETY MEASURES IN PLACE WITH BED IN LOW AND LOCKED, HOB ELEVATED IN SEMI FOWLERS, SIDE RAILS UP X 2.
[2021-03-06] MEDS: BLOOD SUGAR DIAGNOSTIC 1 EACH STRIP IN SCH ×4 (07:57→22:27)
[2021-03-06 08:00] VITALS: BP 136/71
[2021-03-06] MEDS: DEXAMETHASONE SOD PHOSPHATE 10 MG/ML VIAL IV SCH (08:31)
[2021-03-06] MEDS: CEFEPIME 2 GM in IV D5W 100 ML IV SCH ×2 (08:31→21:55)
[2021-03-06] MEDS: PANTOPRAZOLE 40 MG TABLET.DR PO SCH (08:31)
[2021-03-06] MEDS: CHOLECALCIFEROL 1,000 UNIT TABLET (VIT D3) PO SCH (08:31)
[2021-03-06] MEDS: ASPIRIN EC 81 MG TABLET.DR PO SCH (08:32)
[2021-03-06] MEDS: NIFEdipine XL (30MG) 30 MG TAB PO SCH (08:32)
[2021-03-06] MEDS: hydrALAZINE HCL 50 MG TABLET PO SCH ×3 (08:33→17:43)
[2021-03-06] MEDS: ESCITALOPRAM OXALATE (10 MG) 10 MG TABLET PO SCH (08:33)
[2021-03-06] MEDS: DOXAZOSIN MESYLATE (4 MG) 4 MG TABLET PO SCH (08:33)
[2021-03-06] MEDS: NITROGLYCERIN 30 GM TUBE TP SCH ×2 (08:34→21:56)
[2021-03-06] MEDS: FLUTICASONE/VILANTEROL 1 EACH BLST.W.DEV IH SCH (09:10)
[2021-03-06 11:59] LABS: BASOPHILS % (AUTO) 0.1 % (0.0-2.0); EOSINOPHILS % (AUTO) 0.1 % (0.0-6.0); HEMATOCRIT 29 % (39-51); HEMOGLOBIN 9.1 g/dL (13.5-17.5); LYMPHOCYTES # (AUTO) 0.3 K/uL (0.8-4.8); LYMPHOCYTES % (AUTO) 2.9 % (20.0-44.0); MEAN CORPUSCULAR HGB CONC 31 g/dl (31.0-36.0); MEAN CORPUSCULAR VOLUME 92 fL (80-96); MONOCYTES # (AUTO) 0.6 K/uL (0.1-1.30); MONOCYTES % (AUTO) 5.2 % (2.0-12.0); NEUTROPHILS # (AUTO) 10.4 K/uL (1.8-8.9); NEUTROPHILS % (AUTO) 91.7 % (43.0-81.0); PLATELET COUNT (AUTO) 146 K/uL (150-450); WHITE BLOOD COUNT (AUTO) 11.3 K/uL (4.3-11.0)
[2021-03-06 12:00] VITALS: BP 101/47
[2021-03-06 12:28] LABS: CALCIUM, SERUM 9.2 mg/dL (8.5-10.1); POTASSIUM 5.1 mmol/L (3.5-5.1)
[2021-03-06] MEDS: INSULIN REGULAR, HUMAN 100 UNIT/ML 3 ML VIAL SQ PRN ×3 (12:39→21:57)
[2021-03-06 16:00] VITALS: BP 121/54
[2021-03-06] MEDS: WARFARIN SODIUM 5 MG TABLET PO SCH (17:45)
[2021-03-06] MEDS: IV NS 0.9% 1,000 ML IV SCH (18:16)
[2021-03-06] MEDS ORDERED: IV NS 0.9% 500 ML IV ONE (19:00)
--- NOTE | 2021-03-06 19:09 | NUR ---
MARINE SPECIALIST CLOSING NOTES PATIENT IN BED, A/OX3, ON OXYGEN 2L/MIN VIA NASAL CANNULA WITH EVEN AND UNLABORED BREATHING. NO COMPLAINTS OF SOB OR PAIN AT THIS TIME. PATIENT ON TELE MONITOR READS SR. WITH RIGHT FOREARM IV ACCESS SALINE LOCK. SAFETY MEASURES IN PLACE WITH BED IN LOW AND LOCKED, HOB ELEVATED IN SEMI FOWLERS, SIDE RAILS UP X 2.
[2021-03-06 20:00] VITALS: BP 113/51
--- NOTE | 2021-03-06 20:10 | NUR ---
RN NOTE PATIENT ALERT AND ORIENTED X3, ON OXYGEN 3L/MIN VIA NASAL CANNULA, NO S/S OF RESPIRATORY DISTRESS. WITH RIGHT FOREARM IV ACCESS INFUSING NS @ 100ML/HR, NO S/S OF INFILTRATION. SAFETY MEASURES IN PLACE. BED LOCKED AND IN LOWEST POSITION. CALL LIGHT WITHIN REACH. ALL NEEDS ANTICIPATED.
[2021-03-06] MEDS: ATORVASTATIN 10 MG TABLET PO SCH (21:55)
[2021-03-06] MEDS: QUETIAPINE FUMARATE 25 MG TABLET PO SCH (21:55)
[2021-03-07] VITALS: BP 101/42
[2021-03-07 04:00] VITALS: BP 129/62
[2021-03-07] MEDS: IV NS 0.9% 1,000 ML IV SCH ×2 (04:31→14:39)
--- NOTE | 2021-03-07 07:20 | NUR ---
RN NOTE PATIENT RESTING IN BED, ON OXYGEN 3L/MIN VIA NASAL CANNULA, NO S/S OF RESPIRATORY DISTRESS. WITH RIGHT FOREARM IV ACCESS INFUSING NS @ 100ML/HR, NO S/S OF INFILTRATION. DUE MEDS GIVEN ORDERED. ALL NEEDS ATTENDED PROMPTLY. SAFETY MEASURES IN PLACE. BED LOCKED AND IN LOWEST POSITION. CALL LIGHT WITHIN REACH. ENDORSED TO AM SHIFT.
--- NOTE | 2021-03-07 07:29 | NUR ---
CHART CHANGER OPENING NOTES RECEIVED PATIENT IN BED, A/OX3, ON OXYGEN 3L/MIN VIA NASAL CANNULA WITH EVEN AND UNLABORED BREATHING. NO COMPLAINTS OF SOB OR PAIN AT THIS TIME. PATIENT ON TELE MONITOR READS SR. WITH RIGHT FOREARM IV ACCESS SALINE LOCK. SAFETY MEASURES IN PLACE WITH BED IN LOW AND LOCKED, HOB ELEVATED IN SEMI FOWLERS, SIDE RAILS UP X 2.
[2021-03-07 08:00] VITALS: BP 97/64
--- NOTE | 2021-03-07 08:30 | NUR ---
RN NOTE PATIENT NOTED TO HAVE O2 SAT IF 89%, REASSESSED PATIENT INCREASED O2 TO 4L NC AND RECHECKED O2 SAT, PATIENT O2 SATS ARE 93%.
[2021-03-07] MEDS: BLOOD SUGAR DIAGNOSTIC 1 EACH STRIP IN SCH ×4 (09:16→21:51)
[2021-03-07] MEDS: CHOLECALCIFEROL 1,000 UNIT TABLET (VIT D3) PO SCH (09:18)
[2021-03-07] MEDS: NIFEdipine XL (30MG) 30 MG TAB PO SCH (09:18)
[2021-03-07] MEDS: hydrALAZINE HCL 50 MG TABLET PO SCH ×3 (09:18→16:57)
[2021-03-07] MEDS: DOXAZOSIN MESYLATE (4 MG) 4 MG TABLET PO SCH (09:18)
[2021-03-07] MEDS: PANTOPRAZOLE 40 MG TABLET.DR PO SCH (09:18)
[2021-03-07] MEDS: ASPIRIN EC 81 MG TABLET.DR PO SCH (09:18)
[2021-03-07] MEDS: DEXAMETHASONE SOD PHOSPHATE 10 MG/ML VIAL IV SCH (09:19)
[2021-03-07] MEDS: ESCITALOPRAM OXALATE (10 MG) 10 MG TABLET PO SCH (09:19)
[2021-03-07] MEDS: FLUTICASONE/VILANTEROL 1 EACH BLST.W.DEV IH SCH (09:19)
[2021-03-07] MEDS: CEFEPIME 2 GM in IV D5W 100 ML IV SCH ×2 (09:20→21:52)
[2021-03-07] MEDS: NITROGLYCERIN 30 GM TUBE TP SCH ×2 (09:21→21:00)
[2021-03-07 12:00] VITALS: BP 110/57
--- NOTE | 2021-03-07 12:15 | NUR ---
RN NOTE PATIENT NOTE TO HAVEO2 SAY AT 89%, CHECKED NC PLACEMENT, PT HAD REMOVED CANNULA. REPLACED NC AND O2 SAT INCREASED TO 92% ON 4L.
[2021-03-07] MEDS: INSULIN REGULAR, HUMAN 100 UNIT/ML 3 ML VIAL SQ PRN ×2 (12:27→17:31)
[2021-03-07 14:33] LABS: CALCIUM, SERUM 8.4 mg/dL (8.5-10.1); CREATININE 3.5 mg/dL (0.6-1.3); POTASSIUM 5.3 mmol/L (3.5-5.1)
[2021-03-07 16:00] VITALS: BP 100/47
[2021-03-07] MEDS ORDERED: ALBUTEROL HALF STRENGTH 1.25 MG/3 ML VIAL.NEB NEB PRN (16:00)
[2021-03-07] MEDS: WARFARIN SODIUM 5 MG TABLET PO SCH (17:06)
--- NOTE | 2021-03-07 18:35 | NUR ---
JIG AND FIXTURE REPAIRER OPENING NOTES RECEIVED PATIENT IN BED, A/OX3, ON OXYGEN 4L/MIN VIA NASAL CANNULA WITH EVEN AND UNLABORED BREATHING. NO COMPLAINTS OF SOB OR PAIN AT THIS TIME. PATIENT ON TELE MONITOR READS SR. WITH RIGHT FOREARM IV ACCESS SALINE LOCK. SAFETY MEASURES IN PLACE WITH BED IN LOW AND LOCKED, HOB ELEVATED IN SEMI FOWLERS, SIDE RAILS UP X 2.
--- NOTE | 2021-03-07 18:39 | NUR ---
DOUGH MIXING MACHINE OPERATOR CLOSING NOTES RECEIVED PATIENT IN BED, A/OX3, ON OXYGEN 3L/MIN VIA NASAL CANNULA WITH EVEN AND UNLABORED BREATHING. NO COMPLAINTS OF SOB OR PAIN AT THIS TIME. PATIENT ON TELE MONITOR READS SR. WITH RIGHT FOREARM IV ACCESS SALINE LOCK. SAFETY MEASURES IN PLACE WITH BED IN LOW AND LOCKED, HOB ELEVATED IN SEMI FOWLERS, SIDE RAILS UP X 2.
--- NOTE | 2021-03-07 19:30 | NUR ---
RN OPENING NOTES RECEIVED PATIENT IN BED, A/OX3, ABLE TO VERBALIZE NEEDS, ON OXYGEN 3L/MIN VIA NASAL CANNULA WITH EVEN AND UNLABORED BREATHING. NO COMPLAINTS OF SOB OR PAIN AT THIS TIME. PATIENT ON TELE MONITOR READS SR. WITH RIGHT FOREARM IV ACCESS SALINE LOCK, RIJ ACCESS NOTED, PATENT. ALL ISOLATION PRECAUTIONS IMPLEMENTED. SAFETY MEASURES IN PLACE WITH BED IN LOW AND LOCKED, HOB ELEVATED IN SEMI FOWLERS, SIDE RAILS UP X 2. HEMODIALYSIS SCHEDULED FOR TONIGHT. WILL CONTINUE TO MONITOR PATIENT.
[2021-03-07 20:00] VITALS: BP 112/30
[2021-03-07] MEDS ORDERED: ALBUMIN 25% 25 GM in PREMIX 1 EA IV PRN (21:30)
--- NOTE | 2021-03-07 22:10 | NUR ---
RN NOTES PATIENT BECAME DIAPHORETIC AND HYPOTENSIVE DURING HEMODIALYSIS, ABOUT 15 MINUTES INTO HEMODIALYSIS. HEMODIALYSIS WAS STOPPED IMMEDIATELY. BP DURING HEMODIALYSIS WAS 96/36. 02 SAT WAS 82%, PATIENT WAS PLACED ON NONREBREATHER MASK AT 15L/MIN, O2 SAT IS NOW 99%. DR. HARMAN WAS MADE AWARE, ORDERED TO TAKE MANUAL BLOOD PRESSURE READING. MANUAL BLOOD PRESSURE IS 115/55. PATIENT IS NOW STABLE, IN BED, ASLEEP BUT WAKES TO NAME. WILL CONTINUE TO CLOSELY MONITOR PATIENT'S BLOOD PRESSURE AND HEALTH STATUS.
--- NOTE | 2021-03-07 22:23 | NUR ---
BLOOD GLUCOSE IS 125, NO INSULIN COVERAGE NEEDED PER SLIDING SCALE ORDERS. WILL CONTINUE TO MONITOR PATIENT.
[2021-03-07] MEDS: ATORVASTATIN 10 MG TABLET PO SCH (22:32)
[2021-03-07] MEDS: QUETIAPINE FUMARATE 25 MG TABLET PO SCH (22:32)
[2021-03-08] VITALS (30 sets, daily range): BP systolic 82–141; BP diastolic 23–99
--- NOTE | 2021-03-08 00:10 | NUR ---
RN NOTES PATIENT REMAINS STABLE IN BED, 02 SAT IS 99%, NO SOB NOTED, ON NONREBREATHER MASK. MANUAL BLOOD PRESSURE READING IS 110/52. NO SIGNIFICANT FINDINGS UPON NURSING ASSESSMENTS AT THIS TIME. WILL CONTINUE TO MONITOR.
--- NOTE | 2021-03-08 04:52 | NUR ---
RN NOTES PATIENT IS A/O X3, ABLE TO VERBALIZE NEEDS WITH FACIAL EXPRESSIONS. REPOSITIONED FOR COMFORT. ON O2 THERAPY VIA NONREBREATHER MASK AT 15 L/MIN, NO SOB NOTED, NO DISTRESS NOTED, O2 SAT 99%. MANUAL BLOOD PRESSURE READING AT THIS TIME 105/47. WILL CONTINUE TO MONITOR.
--- NOTE | 2021-03-08 05:58 | NUR ---
RN NOTES PATIENT NOTED GAL ON MONITOR, HR IN THE 40S. WENT TO PATIENT'S ROOM IMMEDIATELY, FOUND PATIENT UNRESPONSIVE TO PAINFUL STIMULI. UNABLE TO APPRECIATE PULSE. CODE JOSE CALLED. PLEASE SEE CODE BLUE SHEET.
[2021-03-08] MEDS ORDERED: CALCIUM CHLORIDE 1,000 MG/10 ML DISP.SYRIN ONE (06:09)
[2021-03-08] MEDS ORDERED: PROPOFOL 100 ML ONE (06:20)
--- NOTE | 2021-03-08 06:25 | NUR ---
RN NOTES CALLED PATIENT'S SON AND NOTIFIED SON OF PATIENT'S CHANGE OF CONDITION, ALL QUESTIONS ANSWERED.
--- NOTE | 2021-03-08 06:26 | NUR ---
RT NOTE CODE BLUE CALLED TO PT ROOM. ACLS PROTOCOL STARTED AND PT INTUBATED VIA 7.5 ETT @ 22CM LIP LINE. PT TRANSFERRED TO ICU AND PLACED ON [facility] VENT ON ORDERED SETTINGS OF AC 16, 550, 100%, +5.
--- NOTE | 2021-03-08 06:35 | NUR ---
RN NOTES PATIENT TRANSFERRED TO ICU, ON ACLS PROTOCOL, ACCOMPANIED BY TWO ER RNS AND TWO RTS. REPORT GIVEN TO CHANGER NURSE GABRIEL FOR TRANSFER OF CARE.
--- NOTE | 2021-03-08 06:36 | NUR ---
RN NOTES ALL PATIENT BELONGINGS TRANSFERRED WITH PATIENT.
--- NOTE | 2021-03-08 06:39 | NUR ---
0652 RADHA PEREZ APPAREL MACHINERY INSTRUCTOR FOR [employer] WAS NOTIFIED THAT PATIENT CODED AND WAS TRANSFERRED TO ICU. NO ORDER FROM HIM.
[2021-03-08 07:31] LABS: BASOPHILS % (AUTO) 0.2 % (0.0-2.0); EOSINOPHILS % (AUTO) 0.2 % (0.0-6.0); HEMATOCRIT 28 % (39-51); HEMOGLOBIN 8.9 g/dL (13.5-17.5); LYMPHOCYTES # (AUTO) 2.2 K/uL (0.8-4.8); LYMPHOCYTES % (AUTO) 20.2 % (20.0-44.0); MEAN CORPUSCULAR HGB CONC 32 g/dl (31.0-36.0); MEAN CORPUSCULAR VOLUME 92 fL (80-96); MONOCYTES # (AUTO) 0.6 K/uL (0.1-1.30); MONOCYTES % (AUTO) 5.6 % (2.0-12.0); NEUTROPHILS % (AUTO) 73.8 % (43.0-81.0); PLATELET COUNT (AUTO) 157 K/uL (150-450); RED BLOOD CELL COUNT(AUTO) 3.04 MIL/uL (4.5-6.0); WHITE BLOOD COUNT (AUTO) 10.9 K/uL (4.3-11.0)
[2021-03-08] MEDS: BLOOD SUGAR DIAGNOSTIC 1 EACH STRIP IN SCH ×4 (07:51→22:31)
[2021-03-08 07:58] LABS: ALBUMIN 2.5 g/dL (3.4-5.0); BILIRUBIN,TOTAL 0.3 mg/dL (0.2-1.0); CALCIUM, SERUM 11.2 mg/dL (8.5-10.1); CREATININE 4.1 mg/dL (0.6-1.3); POTASSIUM 4.8 mmol/L (3.5-5.1)
[2021-03-08] MEDS ORDERED: ETOMIDATE 2 MG/ML VIAL IV ONE (08:16)
[2021-03-08] MEDS ORDERED: ROCURONIUM BROMIDE 50 MG/5 ML IV ONE (08:16)
[2021-03-08 08:35] LABS: ABG BASE EXCESS -3.6 mmol/L; ABG OXYGEN SATURATION 99.1 % (92.0-98.5); ABG PCO2 36.4 mmHg (35.0-45.0); ABG PH 7.379 (7.350-7.450); ABG PO2 209.9 mmHg (75.0-100.0); AaDO2 466.7 mmHg; COHb 0.3 % (0.5-1.5); MetHb 0.3 % (0.0-1.5); O2Hb 98.5 % (94.0-97.0); PEEP,BG 5 cm H2O; VT, ABG 550 mL
[2021-03-08] MEDS: CHOLECALCIFEROL 1,000 UNIT TABLET (VIT D3) PO SCH (08:40)
[2021-03-08] MEDS: ASPIRIN EC 81 MG TABLET.DR PO SCH (08:41)
[2021-03-08] MEDS: ESCITALOPRAM OXALATE (10 MG) 10 MG TABLET PO SCH (08:41)
[2021-03-08] MEDS: DEXAMETHASONE SOD PHOSPHATE 10 MG/ML VIAL IV SCH (08:41)
[2021-03-08] MEDS: hydrALAZINE HCL 50 MG TABLET PO SCH ×3 (08:42→16:08)
[2021-03-08] MEDS: DOXAZOSIN MESYLATE (4 MG) 4 MG TABLET PO SCH (08:42)
[2021-03-08] MEDS: NIFEdipine XL (30MG) 30 MG TAB PO SCH (08:42)
[2021-03-08] MEDS: FLUTICASONE/VILANTEROL 1 EACH BLST.W.DEV IH SCH (08:43)
[2021-03-08] MEDS: NOREPINEPHRINE 8 MG in IV NS 0.9% 242 ML IV PRN ×2 (08:43→13:07)
[2021-03-08] MEDS: NITROGLYCERIN 30 GM TUBE TP SCH ×2 (08:43→21:00)
[2021-03-08] MEDS: PANTOPRAZOLE 40 MG TABLET.DR PO SCH (08:46)
[2021-03-08] MEDS: CEFEPIME 2 GM in IV D5W 100 ML IV SCH ×2 (08:47→21:32)
[2021-03-08 09:36] LABS: SITE, ABG Right Radial
[2021-03-08 10:52] LABS: BAND % (MANUAL) 2 % (0.0-5.0); LYMPHOCYTES % (MANUAL) 20 % (16-48); MONOCYTES % (MANUAL) 4 % (0-11.0); NEUTROPHILS % (MANUAL) 74 (42-76)
[2021-03-08] MEDS: INSULIN REGULAR, HUMAN 100 UNIT/ML 3 ML VIAL SQ PRN ×2 (12:12→22:31)
[2021-03-08] MEDS: PROPOFOL 100 ML IV PRN ×2 (12:30→18:30)
[2021-03-08] MEDS ORDERED: PROPOFOL 100 ML IV PRN (12:30)
[2021-03-08] MEDS ORDERED: SODIUM BICARBONATE SYR 50 MEQ/50 ML DISP.SYRIN IV ONE (13:02)
[2021-03-08] MEDS ORDERED: EPINEPHRINE (1:10,000) SYRINGE 1 MG/10 ML DISP.SYRIN IVP ONE (13:02)
[2021-03-08] MEDS: NOREPINEPHRINE 32 MG in IV NS 0.9% 218 ML IV PRN (16:50)
[2021-03-08] MEDS: WARFARIN SODIUM 5 MG TABLET PO SCH (17:01)
[2021-03-08] MEDS: QUETIAPINE FUMARATE 25 MG TABLET PO SCH (22:00)
--- NOTE | 2021-03-08 22:03 | NUR ---
NITROL NON ADMIN DUE TO PT IS ON LEVOPHED, SEROQUEL NON ADMIN DUE TO PT IS SEDATED WITH PROPOFOL
[2021-03-08] MEDS: ATORVASTATIN 10 MG TABLET PO SCH (22:23)
[2021-03-09] VITALS (96 sets, daily range): BP systolic 99–149; BP diastolic 33–59
[2021-03-09] MEDS: PROPOFOL 100 ML IV PRN ×8 (00:03→22:17)
[2021-03-09] MEDS: ACETAMINOPHEN 325 MG TABLET PO PRN (02:16)
--- NOTE | 2021-03-09 03:42 | NUR ---
INFORMED HOSPITALIST GARCÍA DAVIS THAT PT IS STILL MOVING WITH THE DIPRIVAN @ 50MCG/KG/MIN WITH ORDER TO OKAY TO TITRATE UP TO 100 MCG/KG/MIN NOTED AND CARRIED OUT
[2021-03-09 05:32] LABS: BASOPHILS % (AUTO) 0.2 % (0.0-2.0); EOSINOPHILS % (AUTO) 0.2 % (0.0-6.0); HEMATOCRIT 29 % (39-51); HEMOGLOBIN 9.5 g/dL (13.5-17.5); LYMPHOCYTES # (AUTO) 0.8 K/uL (0.8-4.8); LYMPHOCYTES % (AUTO) 6.5 % (20.0-44.0); MEAN CORPUSCULAR HGB CONC 33 g/dl (31.0-36.0); MEAN CORPUSCULAR VOLUME 89 fL (80-96); MONOCYTES % (AUTO) 8.5 % (2.0-12.0); NEUTROPHILS # (AUTO) 10.1 K/uL (1.8-8.9); NEUTROPHILS % (AUTO) 84.6 % (43.0-81.0); PLATELET COUNT (AUTO) 179 K/uL (150-450); RED BLOOD CELL COUNT(AUTO) 3.27 MIL/uL (4.5-6.0); WHITE BLOOD COUNT (AUTO) 11.9 K/uL (4.3-11.0)
[2021-03-09 05:48] LABS: ALBUMIN 2.4 g/dL (3.4-5.0); BILIRUBIN,TOTAL 0.8 mg/dL (0.2-1.0); CALCIUM, SERUM 8.4 mg/dL (8.5-10.1); CREATININE 2.8 mg/dL (0.6-1.3); MAGNESIUM 2.1 mg/dL (1.8-2.4); PHOSPHORUS 2.8 mg/dL (2.5-4.9); POTASSIUM 4.1 mmol/L (3.5-5.1); TOTAL PROTEIN, SERUM 6.2 g/dL (6.4-8.2)
--- NOTE | 2021-03-09 06:31 | NUR ---
REPORTED TO HOSPITALIST ABOUT THE TROPONIN 1.217 WITH ORDER FOR STAT EKG AND REPEAT TROPONIN AFTER 4HOURS NOTED AND CARRIED OUT
--- NOTE | 2021-03-09 07:30 | NUR ---
RN NOTES PT FOUND SEMI AGUILAR'S DISPLAYING NO S/S OF ACUTE DISTRESS, FLACC = 1, RIKERS = 4 AND BILATERAL RISE AND FALL OF THE CHEST OBSERVED. L UA PICC IS PATIENT AND INTACT. BILATERAL SOFT WRISTS APPLIED, PULSES PALPATED AND CAP REFILL < 3 SECONDS BILATERALLY. OLIVEIRA CATH BELOW PATIENT DRAINING BY GRAVITY. VSS, RN WILL MONITOR AND TREAT THROUGHOUT SHIFT. SAFETY MEASURES IN PLACE, BED LOCKED AND IN LOWEST POSITION, SIDE RAILS UPX2, CALL LIGHT WITHIN REACH, BED ALARM ARMED.
[2021-03-09] MEDS: DEXAMETHASONE SOD PHOSPHATE 10 MG/ML VIAL IV SCH (08:42)
[2021-03-09] MEDS: PANTOPRAZOLE 40 MG/PACK PACK GT SCH (08:43)
[2021-03-09] MEDS: ASPIRIN EC 81 MG TABLET.DR PO SCH (08:43)
[2021-03-09] MEDS: ESCITALOPRAM OXALATE (10 MG) 10 MG TABLET PO SCH (08:43)
[2021-03-09] MEDS: CHOLECALCIFEROL 1,000 UNIT TABLET (VIT D3) PO SCH (08:43)
[2021-03-09] MEDS: CEFEPIME 2 GM in IV D5W 100 ML IV SCH (08:55)
[2021-03-09] MEDS: FLUTICASONE/VILANTEROL 1 EACH BLST.W.DEV IH SCH (09:00)
[2021-03-09] MEDS: hydrALAZINE HCL 50 MG TABLET PO SCH ×3 (09:00→17:00)
[2021-03-09] MEDS: NIFEdipine XL (30MG) 30 MG TAB PO SCH (09:00)
[2021-03-09] MEDS: DOXAZOSIN MESYLATE (4 MG) 4 MG TABLET PO SCH (09:00)
[2021-03-09] MEDS: NITROGLYCERIN 30 GM TUBE TP SCH ×2 (09:00→21:02)
--- NOTE | 2021-03-09 09:00 | NUR ---
NURSES NOTES RX NOT GIVEN BECAUSE PT IS INTUBATED, (REALLY HARD TO USE AN INHALER) AND PT ON LEVOPHED. NO POINT TO INCREASE BP AND DECREASE IT AT THE SAME TIME.
[2021-03-09] MEDS: MEROPENEM 1 G in IV NS 0.9% 100 ML IV SCH ×2 (10:38→20:27)
[2021-03-09] MEDS: BLOOD SUGAR DIAGNOSTIC 1 EACH STRIP IN SCH ×3 (12:38→23:12)
[2021-03-09] MEDS: INSULIN REGULAR, HUMAN 100 UNIT/ML 3 ML VIAL SQ PRN ×3 (12:42→23:12)
[2021-03-09] MEDS: NOREPINEPHRINE 32 MG in IV NS 0.9% 218 ML IV PRN (16:45)
[2021-03-09] MEDS: WARFARIN SODIUM 5 MG TABLET PO SCH (16:57)
--- NOTE | 2021-03-09 19:10 | NUR ---
RN NOTES PT FOUND SEMI AGUILAR'S DISPLAYING NO S/S OF ACUTE DISTRESS, FLACC = 0, RIKERS = 3 AND BILATERAL RISE AND FALL OF THE CHEST OBSERVED. L UA PICC IS PATIENT AND INTACT. BILATERAL SOFT WRISTS APPLIED, PULSES PALPATED AND CAP REFILL < 3 SECONDS BILATERALLY. OLIVEIRA CATH BELOW PATIENT DRAINING BY GRAVITY. SBAR AND REPORT GIVEN TO DIP GUIDER STOVES RN, ALL QUESTIONS ANSWERED. SAFETY MEASURES IN PLACE, BED LOCKED AND IN LOWEST POSITION, SIDE RAILS UPX2, CALL LIGHT WITHIN REACH, BED ALARM ARMED. PT ENDORSED IN STABLE CONDITION FOR RODYD
--- NOTE | 2021-03-09 19:15 | NUR ---
RECEIVED PT INTUBATED, SEDATED. ETT 7.07/10, VENT SETTINGS: AC: 20, TV: 550, FIO2: 30%, PEEP 5. SPO2 97%. MEGGAN PICC LINE INTACT AND PATENT. RUNNING LEVO @0.1 MCG/KG/MIN, AND DIPRIVAN @ 50 MCG/KG/MIN INFUSING WELL. OG TUBE IN PLACE, CLAMPED. . OLIVEIRA CATH IN PLACE. SOFT WRIST RESTRAINTS IN PLACE, CHECKED CIRCULATION PER PROTOCOL. SAFETY MEASURES IN PLACE. BED LOCKED AND IN LOWEST POSITION WITH SIDE RAILS UP X3. WILL CONTINUE TO MONITOR.
--- NOTE | 2021-03-09 19:26 | NUR ---
Received patient orally intubated with 7.5 ETT secured at 24cm lip line on vent with the settings of AC 20 550 30% +5. Suctioned small amount of blood tinged secretions. Vent plugged into red outlet, alarms on and audible. Ambu bag at bedside. No respiratory distress at this time. Will continue to monitor patient throughout shift.
[2021-03-09] MEDS: ATORVASTATIN 10 MG TABLET PO SCH (21:02)
[2021-03-09] MEDS: QUETIAPINE FUMARATE 25 MG TABLET PO SCH (21:48)
--- NOTE | 2021-03-09 21:48 | NUR ---
SEROQUEL NON ADMINISTERED DUE TO PT IS SEDATED
[2021-03-09] MEDS: IV NS 0.9% 250 ML IV PRN (23:06)
[2021-03-10] VITALS (74 sets, daily range): BP systolic 81–145; BP diastolic 28–63
[2021-03-10] MEDS: PROPOFOL 100 ML IV PRN ×3 (01:46→08:52)
[2021-03-10 05:15] LABS: CALCIUM, SERUM 8.1 mg/dL (8.5-10.1); CREATININE 3.1 mg/dL (0.6-1.3); POTASSIUM 3.5 mmol/L (3.5-5.1)
[2021-03-10 05:17] LABS: BASOPHILS % (AUTO) 0.5 % (0.0-2.0); EOSINOPHILS % (AUTO) 0.8 % (0.0-6.0); HEMATOCRIT 25 % (39-51); HEMOGLOBIN 8.6 g/dL (13.5-17.5); LYMPHOCYTES # (AUTO) 0.8 K/uL (0.8-4.8); LYMPHOCYTES % (AUTO) 11.5 % (20.0-44.0); MEAN CORPUSCULAR HGB CONC 34 g/dl (31.0-36.0); MEAN CORPUSCULAR VOLUME 87 fL (80-96); MONOCYTES # (AUTO) 0.5 K/uL (0.1-1.30); MONOCYTES % (AUTO) 8.3 % (2.0-12.0); NEUTROPHILS # (AUTO) 5.2 K/uL (1.8-8.9); NEUTROPHILS % (AUTO) 78.9 % (43.0-81.0); PLATELET COUNT (AUTO) 132 K/uL (150-450); RED BLOOD CELL COUNT(AUTO) 2.87 MIL/uL (4.5-6.0); WHITE BLOOD COUNT (AUTO) 6.6 K/uL (4.3-11.0)
[2021-03-10] MEDS: INSULIN REGULAR, HUMAN 100 UNIT/ML 3 ML VIAL SQ PRN ×3 (06:04→17:50)
[2021-03-10] MEDS: BLOOD SUGAR DIAGNOSTIC 1 EACH STRIP IN SCH ×3 (06:04→17:48)
[2021-03-10] MEDS ORDERED: NOREPINEPHRINE 8 MG in IV NS 0.9% 242 ML IV PRN (07:00)
--- NOTE | 2021-03-10 07:41 | NUR ---
RT NOTE PATIENT RECEIVED ORALLY INTUBATED WITH 7.5 ETT SECURED AT 24 AT THE LIPLINE. PATIENT IS ON MECH VENT WITH SETTINGS PER MD ORDER. MECH VENT SETTINGS: AC 20, 550, 30%, +5. STARCH CRAB DONE. VENT PLUGGED INTO RED OUTLET. ALARMS ON AND WORKING PROPERLY. AMBU BAG AT BEDSIDE. ETT SECURED BY ANCHOR FAST. SUCTIONED SMALL AMOUNTS OF WHITE SECRETIONS. NO SOB NOTED AT THIS TIME. WILL CONTINUE TO MONITOR.
[2021-03-10] MEDS: CHOLECALCIFEROL 1,000 UNIT TABLET (VIT D3) PO SCH (08:40)
[2021-03-10] MEDS: PANTOPRAZOLE 40 MG/PACK PACK GT SCH (08:40)
[2021-03-10] MEDS: ASPIRIN EC 81 MG TABLET.DR PO SCH (08:40)
[2021-03-10] MEDS: DEXAMETHASONE SOD PHOSPHATE 10 MG/ML VIAL IV SCH (08:40)
[2021-03-10] MEDS: ESCITALOPRAM OXALATE (10 MG) 10 MG TABLET PO SCH (08:46)
[2021-03-10] MEDS: MEROPENEM 1 G in IV NS 0.9% 100 ML IV SCH ×2 (08:46→20:59)
[2021-03-10] MEDS: hydrALAZINE HCL 50 MG TABLET PO SCH ×3 (09:00→16:39)
[2021-03-10] MEDS: FLUTICASONE/VILANTEROL 1 EACH BLST.W.DEV IH SCH (09:00)
[2021-03-10] MEDS: NITROGLYCERIN 30 GM TUBE TP SCH ×2 (09:00→21:02)
[2021-03-10] MEDS: NIFEdipine XL (30MG) 30 MG TAB PO SCH (09:00)
[2021-03-10] MEDS: DOXAZOSIN MESYLATE (4 MG) 4 MG TABLET PO SCH (09:00)
[2021-03-10] MEDS ORDERED: GLUCERNA 1.2 1,000 ML BOTTLE NG PRN (09:00)
--- NOTE | 2021-03-10 09:16 | NUR ---
BLOOD PRESSURE MEDICATION NON ADMINISTERED DUE TO PT BP IS LOW WITH LATEST 96/34 HR 60 ALSO PT WILL HAVE HD TODAY, AND CHARGE NURSE IS AWARE
[2021-03-10] MEDS ORDERED: NEPRO 1,000 ML BOTTLE GT PRN (10:00)
--- NOTE | 2021-03-10 12:40 | NUR ---
PT IS AWAKE ORALLY INTUBATED NO SIGN OF RESPIRATORY DISTRESS PT ABLE TO ANSWER YES OR NO BY NODDING, HD NURSE AT BEDSIDE WILL START HD TO THE PT WILL CONT TO MONITOR
--- NOTE | 2021-03-10 16:33 | NUR ---
VENT CHANGES BELOW FOR WEANING TRIAL PER DR. SHAY: CPAP 5 PS 14 FIO2 30% Addendum: 03/10/21 at 1634 by NIDHI LIANG RT Amended: Links added.
[2021-03-10] MEDS: WARFARIN SODIUM 5 MG TABLET PO SCH (16:39)
--- NOTE | 2021-03-10 16:40 | NUR ---
COUMADIN NON ADMINISTERED PER DR SCHMITZ DUE TO INR OF 5.11 AND PT OF 48.9 REPEAT PT/INR TOMMOROW PER DR SCHMITZ NOTED AND CARRIED OUT
--- NOTE | 2021-03-10 17:00 | NUR ---
per dr caridad lee to extubate the PT RT and Charge Nurse Made Aware, PT IS AWAKE AND ALERT TOLERATING THE CPAP SETTING WILL EXTUBATE THE PT WITH THE RT,
--- NOTE | 2021-03-10 17:05 | NUR ---
pt is awake and alert @ 1705 extubated and placed into 3 lpm o2 flow via nasal cannula. spo2 975 RR 16 BPM HR 96 bpm looks comfortable on nasal cannula. Addendum: 03/10/21 at 1715 by NIDHI LIANG RT Amended: Links added.
--- NOTE | 2021-03-10 19:00 | NUR ---
RN NOTE RECEIVED PATIENT IN BED, AO X 3-4, VENEZUELAN SPEAKING, BUT UNDERSTANDS BASIC BENGALI, IN NO S/SX OF ACUTE DISTRESS AT THIS TIME. BREATHING EVEN AND UNLABORED, SATURATION AT 97% ON 3LPM VIA NC, SR ON THE MONITOR, HR IS 83. NOTED IV SITE AT RFA 18G, EMGGAN PICC LINE, HUBS ARE PATENT AND FLUSHING WELL, AND HD CATH AT R IJ, NO S/S OF INFECTION. OLIVEIRA CATHETER CONNECTED TO URINE BAG IN PLACE, DRAINING TO A CLEAR, YELLOW OUTPUT. NPO STATUS MAINTAINED. SAFETY MEASURES IMPLEMENTED. PATIENT BED ALARM IS ON. HEAD OF BED ELEVATED. BED IS LOCKED, IN LOWEST POSITION AND SIDE RAILS UP. CALL LIGHT WITHIN REACH OF THE PATIENT. WILL CONTINUE TO MONITOR AND REASSESS FOR ANY CHANGES.
--- NOTE | 2021-03-10 19:12 | NUR ---
PT ON BED AWAKE A/O X2-3 GEORGIAN SPEAKING WITH LITTLE AZERI S/P EXTUBATION @ 1720 PT ON O2 3L VIA NC SPO2 95% NO SIGN OF SOB HAVE MEGGAN PICC PATENT AND FLUSHED, TELE MONITOR READYS SINUS RHYTHM 90'S OLIVEIRA CATHETER DRAIN YELLOW URINE VIA GRAVITY BED ON LOWEST POSITION AND LOCKED SIDE RAILS UP X2 CALL LIGHT WITHIN REACH WILL CONT TO MONITOR
[2021-03-10] MEDS: ACETAMINOPHEN 325 MG TABLET PO PRN (21:00)
[2021-03-10] MEDS: QUETIAPINE FUMARATE 25 MG TABLET PO SCH (21:00)
[2021-03-10] MEDS: ATORVASTATIN 10 MG TABLET PO SCH (21:02)
[2021-03-11] VITALS (39 sets, daily range): BP systolic 75–162; BP diastolic 30–71
[2021-03-11] MEDS: BLOOD SUGAR DIAGNOSTIC 1 EACH STRIP IN SCH ×5 (00:51→23:09)
[2021-03-11] MEDS: clonazePAM 0.5 MG TABLET PO PRN (02:37)
[2021-03-11] MEDS: ACETAMINOPHEN 325 MG TABLET PO PRN (06:36)
--- NOTE | 2021-03-11 07:15 | NUR ---
RN OPENING NOTES RECEIVED PT IN BED, A/O X 3-4, KYRGYZ SPEAKING BUT UNDERSTANDS SIMPLE POLISH. ON 3L O2 VIA NC, NO SOB OR ANY S/SX OF ACUTE DISTRESS AT THIS TIME. SATURATION @98%. SR ON THE MONITOR. IV SITE ON RFA #18, MEGGAN PICC LINE BOTH INTACT, PATENT AND FLUSHED. HD CATH AT R IJ NOTED. OLIVEIRA CATHETER IN PLACE, DRAINING TO CLEAR, YELLOW OUTPUT. NPO. SAFETY MEASURES IMPLEMENTED. CALL LIGHT WITHIN REACH. BED ALARM ON. BED LOCKED AND IN LOWEST POSITION WITH SIDE RAILS UP X3. WILL CONTINUE TO MONITOR.
--- NOTE | 2021-03-11 08:00 | NUR ---
RN NOTES REPORT GIVEN TO BING JAEGER FOR RODDY.
[2021-03-11] MEDS: PANTOPRAZOLE 40 MG/PACK PACK GT SCH (09:23)
[2021-03-11] MEDS: ASPIRIN EC 81 MG TABLET.DR PO SCH (09:23)
[2021-03-11] MEDS: NIFEdipine XL (30MG) 30 MG TAB PO SCH (09:23)
[2021-03-11] MEDS: CHOLECALCIFEROL 1,000 UNIT TABLET (VIT D3) PO SCH (09:23)
[2021-03-11] MEDS: ESCITALOPRAM OXALATE (10 MG) 10 MG TABLET PO SCH (09:24)
[2021-03-11] MEDS: DEXAMETHASONE SOD PHOSPHATE 10 MG/ML VIAL IV SCH (09:24)
[2021-03-11] MEDS: hydrALAZINE HCL 50 MG TABLET PO SCH ×3 (09:24→17:00)
[2021-03-11] MEDS: DOXAZOSIN MESYLATE (4 MG) 4 MG TABLET PO SCH (09:24)
[2021-03-11] MEDS: NITROGLYCERIN 30 GM TUBE TP SCH ×2 (09:25→22:36)
[2021-03-11] MEDS: MEROPENEM 1 G in IV NS 0.9% 100 ML IV SCH ×2 (09:25→22:32)
[2021-03-11] MEDS: FLUTICASONE/VILANTEROL 1 EACH BLST.W.DEV IH SCH (09:50)
[2021-03-11] MEDS: INSULIN REGULAR, HUMAN 100 UNIT/ML 3 ML VIAL SQ PRN ×3 (13:04→23:17)
--- NOTE | 2021-03-11 17:25 | NUR ---
RN NOTES HELD BP MEDS DUE TO LOW BP (80-100) ALL DAY.
[2021-03-11] MEDS: WARFARIN SODIUM 5 MG TABLET PO SCH (17:40)
--- NOTE | 2021-03-11 19:00 | NUR ---
RN NOTE RECEIVED PATIENT IN BED, AO X 3-4, ANGOLAN SPEAKING, BUT UNDERSTANDS BASIC VIETNAMESE, COOPERATIVE, IN NO S/SX OF ACUTE DISTRESS AT THIS TIME. BREATHING EVEN AND UNLABORED, SATURATION AT 95% ON 5LPM VIA NC, SR ON THE MONITOR, HR IS 70. NOTED IV SITE AT RFA 18G, R HAND 20G, BOTH PATENT AND FLUSHING WELL, AND MEGGAN PICC LINE, 2 HUBS APPEARS OCCLUDED, AND HD CATH AT R IJ, NO S/S OF INFECTION. OLIVEIRA CATHETER CONNECTED TO URINE BAG IN PLACE, DRAINING TO A CLEAR, YELLOW OUTPUT. ASPIRATION PRECAUTIONS MAINTAINED. SAFETY MEASURES IMPLEMENTED. PATIENT BED ALARM IS ON. HEAD OF BED ELEVATED. BED IS LOCKED, IN LOWEST POSITION AND SIDE RAILS UP. CALL LIGHT WITHIN REACH OF THE PATIENT. WILL CONTINUE TO MONITOR AND REASSESS FOR ANY CHANGES.
--- NOTE | 2021-03-11 19:12 | NUR ---
RN CLOSING NOTES PT RESTING IN BED. NO SIGNS OF DISTRESS OR C/O OF PAIN. PT TOLERATED ALL TREATMENTS. PT ON 5L NC SATING AT 98%. PT IS A/O X4 AZERI SPEAKING. ALL NEEDS ATTENDED TO DURING SHIFT. ALL SAFETY MEASURES IN PLACE, BED IN LOWEST LOCKED POSITION, SIDE RAILS UP X3, CALL LIGHT WITHIN REACH. WILL ENDORSE TO ONCOMING INSURANCE SALES ASSOCIATE NURSE FOR RODDY.
[2021-03-11] MEDS: QUETIAPINE FUMARATE 25 MG TABLET PO SCH (22:34)
[2021-03-11] MEDS: ATORVASTATIN 10 MG TABLET PO SCH (22:34)
[2021-03-12] VITALS (20 sets, daily range): BP systolic 99–148; BP diastolic 54–70
[2021-03-12] MEDS: BLOOD SUGAR DIAGNOSTIC 1 EACH STRIP IN SCH ×3 (06:38→18:39)
--- NOTE | 2021-03-12 07:15 | NUR ---
RN OPENING NOTES RECEIVED PT IN BED, A/O X 3-4, DANISH SPEAKING BUT UNDERSTANDS SIMPLE SAO TOMEAN. ON 3L O2 VIA NC, NO SOB OR ANY S/SX OF ACUTE DISTRESS AT THIS TIME. SATURATION @97%. SR ON THE MONITOR. IV SITE ON RFA #18, MEGGAN PICC LINE BOTH INTACT, PATENT AND FLUSHED. HD CATH AT R IJ NOTED. OLIVEIRA CATHETER IN PLACE, DRAINING TO CLEAR, YELLOW OUTPUT. SAFETY MEASURES IMPLEMENTED. CALL LIGHT WITHIN REACH. BED ALARM ON. BED LOCKED AND IN LOWEST POSITION WITH SIDE RAILS UP X3. WILL CONTINUE TO MONITOR.
[2021-03-12 08:11] LABS: BASOPHILS % (AUTO) 0.3 % (0.0-2.0); EOSINOPHILS % (AUTO) 2.1 % (0.0-6.0); HEMATOCRIT 25 % (39-51); HEMOGLOBIN 8.2 g/dL (13.5-17.5); LYMPHOCYTES % (AUTO) 14.8 % (20.0-44.0); MEAN CORPUSCULAR HGB CONC 33 g/dl (31.0-36.0); MEAN CORPUSCULAR VOLUME 89 fL (80-96); MONOCYTES # (AUTO) 0.6 K/uL (0.1-1.30); MONOCYTES % (AUTO) 8.5 % (2.0-12.0); NEUTROPHILS # (AUTO) 5.1 K/uL (1.8-8.9); NEUTROPHILS % (AUTO) 74.3 % (43.0-81.0); PLATELET COUNT (AUTO) 120 K/uL (150-450); RED BLOOD CELL COUNT(AUTO) 2.77 MIL/uL (4.5-6.0); WHITE BLOOD COUNT (AUTO) 6.9 K/uL (4.3-11.0)
[2021-03-12] MEDS: IV NS 0.9% 250 ML IV PRN (08:24)
[2021-03-12 08:27] LABS: ALBUMIN 2.1 g/dL (3.4-5.0); BILIRUBIN,TOTAL 0.4 mg/dL (0.2-1.0); CALCIUM, SERUM 7.5 mg/dL (8.5-10.1); CREATININE 2.8 mg/dL (0.6-1.3); TOTAL PROTEIN, SERUM 5.6 g/dL (6.4-8.2)
[2021-03-12] MEDS: PANTOPRAZOLE 40 MG/PACK PACK GT SCH (08:46)
[2021-03-12] MEDS: ESCITALOPRAM OXALATE (10 MG) 10 MG TABLET PO SCH (08:46)
[2021-03-12] MEDS: DEXAMETHASONE SOD PHOSPHATE 10 MG/ML VIAL IV SCH (08:46)
[2021-03-12] MEDS: ASPIRIN EC 81 MG TABLET.DR PO SCH (08:46)
[2021-03-12] MEDS: hydrALAZINE HCL 50 MG TABLET PO SCH ×3 (08:47→18:39)
[2021-03-12] MEDS: CHOLECALCIFEROL 1,000 UNIT TABLET (VIT D3) PO SCH (08:47)
[2021-03-12] MEDS: NITROGLYCERIN 30 GM TUBE TP SCH ×2 (08:51→20:28)
[2021-03-12] MEDS: FLUTICASONE/VILANTEROL 1 EACH BLST.W.DEV IH SCH (08:55)
[2021-03-12] MEDS: ACETAMINOPHEN 325 MG TABLET PO PRN (09:31)
[2021-03-12] MEDS: DOXAZOSIN MESYLATE (4 MG) 4 MG TABLET PO SCH (09:32)
[2021-03-12] MEDS: NIFEdipine XL (30MG) 30 MG TAB PO SCH (09:32)
[2021-03-12] MEDS: MEROPENEM 1 G in IV NS 0.9% 100 ML IV SCH ×2 (09:59→20:24)
[2021-03-12] MEDS: INSULIN REGULAR, HUMAN 100 UNIT/ML 3 ML VIAL SQ PRN (12:11)
--- NOTE | 2021-03-12 17:00 | NUR ---
RN NOTES PT TRANSFERRED TO [facility] ROOM 118-1 PER PROTOCOL. REPORT GIVEN TO HODA JAEGER FOR RODDY. VS STABLE.
[2021-03-12] MEDS: WARFARIN SODIUM 5 MG TABLET PO SCH (18:38)
--- NOTE | 2021-03-12 19:20 | NUR ---
RN NOTES: -PER ENDORSEMENT PATIENT WAS TRANS-IN FROM ICU, A/0X3-4, OCCITAN SPEAKING, ON C 13 CATAPULT OPERATOR SR-80, OLIVEIRA CATH DRAINING INTO YELLOWISH COLORED URINE AT 300CC LEVEL, SKIN IS INTACT, IV CANNULA ON RFA G318, RH G#18, MEGGAN-PICC LINE, RIGHT INTERNAL JUGULAR-HD SITE.NO DIALYSIS FOR TODAY TO BE FOLLOWED UP TOMORROW MORNING, NO SOB OR ANY SIGN OF PAIN OR DISCOMFORT, ABLE TO VERBALIZED NEEDS, ORIENTED TO UNIT AND STAFF. -FALL, SAFETY AND ASPIRATION PRECAUTION OBSERVED.
--- NOTE | 2021-03-12 21:00 | NUR ---
RN NOTES: --RN TALK TO HIS FAMILY PATIENT LOOKS SLEEPY BUT UNABLE TO SLEEP BECAUSE THEY KEEP ON CALLING HIM ON THE PHONE, HE SAID HE IS HAVING ON AND OFF HEADACHE BECAUSE HE CANT SLEEP, EXPLAINED TO THEM PATIENT WAS JUST TRANSFERRED FROM ICU AND HE NEEDS TO REST, PATIENT UNDERSTAND AND HE AGREED TO CLOSE THE PHONE, INSTRUCT FAMILY TO CALL IN THE MORNING. --AFTER HE PUT DOWN THE PHONE HE IMMEDIATELY FALL ASLEEP.
[2021-03-12] MEDS: QUETIAPINE FUMARATE 25 MG TABLET PO SCH (21:19)
[2021-03-12] MEDS: ATORVASTATIN 10 MG TABLET PO SCH (21:19)
[2021-03-13] VITALS: BP 136/67
[2021-03-13] MEDS: BLOOD SUGAR DIAGNOSTIC 1 EACH STRIP IN SCH ×5 (00:17→23:32)
--- NOTE | 2021-03-13 00:19 | NUR ---
RN NOTES: BLOOD SUGAR CHECKED-97, NO INSULIN PER SCALE, WILL CONTINUE TO MONITOR FOR SIGN OF HYPER AND HYPOGLYCEMIA.
[2021-03-13] MEDS: ACETAMINOPHEN 325 MG TABLET PO PRN ×2 (02:03→23:04)
--- NOTE | 2021-03-13 02:03 | NUR ---
RN NOTES: AWAKE HE HAS ON AND OFF COUGH, NO SOB REQUEST FOR TYLENOL HE HAVE HEADACHE AND MILD BODY ACHED.
[2021-03-13 04:00] VITALS: BP 149/72
--- NOTE | 2021-03-13 05:58 | NUR ---
RN NOTES: ABLE TO SLEEP AND REST, MORNING CARE DONE, BLOOD SUGAR-79, GIVEN 1 JUICE, DRINK WELL TOLERATED, ASPIRATION PRECAUTION OBSERVED,KEPT UPRIGHT WHILE DRINKING AND INSTRUCT TO SWALLOW WELL.
--- NOTE | 2021-03-13 06:54 | NUR ---
RN NOTES: MORNING CARE DONE, REMAINS IN SINUS RHYTHM, ABLE TO TOLERATE ORAL FLUIDS WELL, DO SWALLOW EVAL AND ASSESSED IF HIS DIET CAN BE ADVANCE, V/S WITHIN RANGE, ENDORSED FOR CONTINUITY OF CARE.
[2021-03-13 08:00] VITALS: BP 134/57
[2021-03-13] MEDS: PANTOPRAZOLE 40 MG/PACK PACK GT SCH (09:00)
[2021-03-13 09:15] LABS: ABG BASE EXCESS -0.9 mmol/L; ABG PCO2 43.5 mmHg (35.0-45.0); ABG PH 7.368 (7.350-7.450); ABG PO2 65.5 mmHg (75.0-100.0); AaDO2 205.9 mmHg; COHb 0.5 % (0.5-1.5); MetHb 0.3 % (0.0-1.5); O2Hb 91.3 % (94.0-97.0); SITE, ABG Right Radial; VENT MODE, BG nasal cannula
[2021-03-13] MEDS: FLUTICASONE/VILANTEROL 1 EACH BLST.W.DEV IH SCH (09:44)
[2021-03-13] MEDS: DOXAZOSIN MESYLATE (4 MG) 4 MG TABLET PO SCH (09:45)
[2021-03-13] MEDS: CHOLECALCIFEROL 1,000 UNIT TABLET (VIT D3) PO SCH (09:45)
[2021-03-13] MEDS: NIFEdipine XL (30MG) 30 MG TAB PO SCH (09:46)
[2021-03-13] MEDS: hydrALAZINE HCL 50 MG TABLET PO SCH ×3 (09:49→17:07)
[2021-03-13] MEDS: ASPIRIN EC 81 MG TABLET.DR PO SCH (09:49)
[2021-03-13] MEDS: ESCITALOPRAM OXALATE (10 MG) 10 MG TABLET PO SCH (09:49)
[2021-03-13] MEDS: NITROGLYCERIN 30 GM TUBE TP SCH ×2 (09:50→21:56)
[2021-03-13] MEDS: DEXAMETHASONE 4 MG TABLET PO SCH (09:55)
[2021-03-13 12:00] VITALS: BP 134/57
[2021-03-13] MEDS: POLYETHYLENE GLYCOL 3350 17 GM POWD.PACK PO PRN (13:54)
[2021-03-13] MEDS: BISACODYL SUPP (10 MG) 10 MG/SUPP.RECT SUPP.RECT RC PRN (13:54)
[2021-03-13 16:00] VITALS: BP 134/57
[2021-03-13] MEDS: WARFARIN SODIUM 5 MG TABLET PO SCH (17:06)
--- NOTE | 2021-03-13 19:32 | NUR ---
RN OPENING NOTES RECEIVED PT IN BED, AWAKE, A/O X 3-4, KITTITIAN SPEAKING AND VERBALLY RESPONSIVE. ON 3L O2 VIA NC AND TOLERATED WELL. IV ACCESS ON RFA #18, MEGGAN PICC LINE BOTH INTACT AND PATENT. HD CATH AT R IJ NOTED. NO BLEEDING NOTED. NO C/O PAIN OR DISCOMFORT. NO ACUTE DISTRESS. OLIVEIRA CATHETER IN PLACE INTACT AND PATENT WITH YELLOWISH CLEAR URINE. ALL SAFETY MEASURES IN PLACE. BED LOCKED AND IN LOWEST POSITION WITH SIDE RAILS UP X3. PLACE CALL LIGHT WITHIN REACH. BED ALARM ON. WILL CONTINUE TO MONITOR.
--- NOTE | 2021-03-13 19:46 | NUR ---
RN NOTE PT HAD BOWEL MOVEMENT. GIVEN MIRALAX AND SUPPOSITORY.
[2021-03-13 20:00] VITALS: BP 119/52
[2021-03-13] MEDS: ATORVASTATIN 10 MG TABLET PO SCH (21:56)
[2021-03-13] MEDS: QUETIAPINE FUMARATE 25 MG TABLET PO SCH (21:56)
--- NOTE | 2021-03-13 23:04 | NUR ---
RN NOTES: PT C/O GENERALIZED BODY PAIN 3/10 PAIN SCALE. TYLENOL 325 MG 2 TABS GIVEN AND PT TOLERATED WELL, WILL CONTINUE TO MONITOR
[2021-03-13] MEDS: INSULIN REGULAR, HUMAN 100 UNIT/ML 3 ML VIAL SQ PRN (23:36)
--- NOTE | 2021-03-13 23:46 | NUR ---
RN NOTES: PT 'S BLOOD SUGAR 147. 2 UNITS OF REGULAR INSULIN GIVEN. NO S/S OF HYPER/HYPOGLYCEMIA. WILL CONTINUE TO MONITOR
[2021-03-14] VITALS: BP 119/54
[2021-03-14 04:00] VITALS: BP 118/54
[2021-03-14] MEDS: BLOOD SUGAR DIAGNOSTIC 1 EACH STRIP IN SCH ×3 (06:04→17:09)
[2021-03-14 08:00] VITALS: BP 129/56
--- NOTE | 2021-03-14 08:00 | NUR ---
tele orthopedic physician: notes received pt in bed awake, a/ox3; italian speaking only. no c/o pain or any discomfort. instructed to call for assistance. will continue to monitor.
[2021-03-14] MEDS: hydrALAZINE HCL 50 MG TABLET PO SCH ×3 (08:24→16:37)
[2021-03-14] MEDS: NIFEdipine XL (30MG) 30 MG TAB PO SCH (08:25)
[2021-03-14] MEDS: ESCITALOPRAM OXALATE (10 MG) 10 MG TABLET PO SCH (08:27)
[2021-03-14] MEDS: ASPIRIN EC 81 MG TABLET.DR PO SCH (08:27)
[2021-03-14] MEDS: DEXAMETHASONE 4 MG TABLET PO SCH (08:27)
[2021-03-14] MEDS: CHOLECALCIFEROL 1,000 UNIT TABLET (VIT D3) PO SCH (08:27)
[2021-03-14] MEDS: NITROGLYCERIN 30 GM TUBE TP SCH ×2 (08:28→21:34)
[2021-03-14] MEDS: DOXAZOSIN MESYLATE (4 MG) 4 MG TABLET PO SCH (08:29)
[2021-03-14] MEDS: FLUTICASONE/VILANTEROL 1 EACH BLST.W.DEV IH SCH (08:34)
[2021-03-14] MEDS: ACETAMINOPHEN 325 MG TABLET PO PRN ×2 (08:35→14:36)
--- NOTE | 2021-03-14 11:13 | NUR ---
tele operations research analyst: notes per solution engineer, pt attempted to pull his picc line out, noted an inch out. cn and installation supervisor made aware. per nsg installation supervisor, to get consent ready when picc line gets here around 2pm.
[2021-03-14 12:00] VITALS: BP_SYST 124
--- NOTE | 2021-03-14 13:20 | NUR ---
tele stitch bonding machine tender helper: notes place a call to valentino (son) and made aware re: possible re-insert picc line due to pt attempted to pull it out. son consented over the phone with another nurse as a witnessed. will continue to monitor.
[2021-03-14 16:00] VITALS: BP 132/55
--- NOTE | 2021-03-14 16:00 | NUR ---
tele medicinal plant picker: notes TATIANA PACHECO APRN HERE AND ASSESSED PICC LINE AND INFORMED ME OKAY TO REMOVE IT, PT DOESN'T NEED IT. PT HAS 2 PERIPHERAL LINE. REMOVED PICC LINE BY RN WITH PRIMARY NURSE A WITNESS, MYNOR. WELL. PRESSURE APPLIED FOR A FEW MINUTES WITH NO BLEEDING NOTED. INSTRUCTED TO CALL FOR ASSISTANCE. WILL CONTINUE TO MONITOR.
[2021-03-14] MEDS: WARFARIN SODIUM 5 MG TABLET PO SCH (16:59)
[2021-03-14] MEDS: INSULIN REGULAR, HUMAN 100 UNIT/ML 3 ML VIAL SQ PRN (17:18)
--- NOTE | 2021-03-14 19:10 | NUR ---
tele area field person: notes bedside report given to karli (rn) for continuity of care.
--- NOTE | 2021-03-14 19:45 | NUR ---
RN OPENING NOTES RECEIVED PT SITTING ON EDGE OF THE BED A/O X 4, MICRONESIAN SPEAKING AND VERBALLY RESPONSIVE. ON 3L O2 VIA NC AND TOLERATED WELL. IV ACCESS ON RFA #18, MEGGAN PICC LINE BOTH INTACT AND PATENT. HD CATH AT R IJ NOTED. NO BLEEDING NOTED. NO C/O PAIN OR DISCOMFORT. NO ACUTE DISTRESS. OLIVEIRA CATHETER IN PLACE INTACT AND PATENT WITH YELLOW CLEAR URINE.PATIENT EXPRESSING THAT HE IS HUNGRY AND REQUESTING A SANDWICH AT THIS TIME. WILL CONTINUE TO MONITOR PATIENT.ALL SAFETY MEASURES IN PLACE. BED LOCKED AND IN LOWEST POSITION WITH SIDE RAILS UP X3.PLACE CALL LIGHT WITHIN REACH. BED ALARM ON.
[2021-03-14 20:00] VITALS: BP 156/64
[2021-03-14] MEDS: QUETIAPINE FUMARATE 25 MG TABLET PO SCH (21:29)
[2021-03-14] MEDS: ATORVASTATIN 10 MG TABLET PO SCH (21:29)
[2021-03-15] VITALS: BP 156/39
[2021-03-15] MEDS: BLOOD SUGAR DIAGNOSTIC 1 EACH STRIP IN SCH ×4 (00:12→17:44)
--- NOTE | 2021-03-15 00:12 | NUR ---
RN NOTE BS 126 - NO INSULIN GIVEN PER SLIDING SCALE
[2021-03-15 04:00] VITALS: BP 156/64
[2021-03-15] MEDS: ACETAMINOPHEN 325 MG TABLET PO PRN ×3 (04:26→21:32)
--- NOTE | 2021-03-15 05:33 | NUR ---
RN NURSE REASSESSED BP 149/61.
--- NOTE | 2021-03-15 07:45 | NUR ---
RN OPENING NOTES RECEIVED PATIENT AWAKE IN BED, A/O X 4, ROMANIAN SPEAKING AND VERBALLY RESPONSIVE. ON 4L O2 VIA NC TOLERATED WELL. BREATHING EVEN AND UNLABORED. NO SOB OR ANY RESPIRATORY DISTRESS NOTED. IV ACCESS ON RFA #18, MEGGAN PICC LINE BOTH INTACT AND PATENT. HD CATH AT R IJ NOTED. NO BLEEDING NOTED. NO C/O PAIN OR DISCOMFORT. NO ACUTE DISTRESS. OLIVEIRA CATHETER IN PLACE INTACT AND PATENT WITH YELLOW CLEAR URINE. ALL APPLICABLE ISOLATION PRECAUTIONS IN PLACE. ALL SAFETY MEASURES IN PLACE. BED LOCKED AND IN LOWEST POSITION WITH SIDE RAILS UP X3.PLACE CALL LIGHT WITHIN REACH. BED ALARM ON. WILL CONTINUE TO MONITOR PATIENT ACCORDINGLY.
[2021-03-15] MEDS: PANTOPRAZOLE 40 MG TABLET.DR PO SCH (07:47)
[2021-03-15 08:00] VITALS: BP 148/72
[2021-03-15] MEDS: DEXAMETHASONE 4 MG TABLET PO SCH (09:33)
[2021-03-15] MEDS: ESCITALOPRAM OXALATE (10 MG) 10 MG TABLET PO SCH (09:33)
[2021-03-15] MEDS: CHOLECALCIFEROL 1,000 UNIT TABLET (VIT D3) PO SCH (09:33)
[2021-03-15] MEDS: DOXAZOSIN MESYLATE (4 MG) 4 MG TABLET PO SCH (09:35)
[2021-03-15] MEDS: NIFEdipine XL (30MG) 30 MG TAB PO SCH (09:36)
[2021-03-15] MEDS: ASPIRIN EC 81 MG TABLET.DR PO SCH (09:36)
[2021-03-15] MEDS: hydrALAZINE HCL 50 MG TABLET PO SCH ×3 (09:37→17:13)
[2021-03-15] MEDS: FLUTICASONE/VILANTEROL 1 EACH BLST.W.DEV IH SCH (09:58)
[2021-03-15] MEDS: NITROGLYCERIN 30 GM TUBE TP SCH ×2 (10:02→21:31)
[2021-03-15 12:00] VITALS: BP 152/77
[2021-03-15 13:04] LABS: BASOPHILS % (AUTO) 0.4 % (0.0-2.0); EOSINOPHILS % (AUTO) 1.2 % (0.0-6.0); HEMATOCRIT 25 % (39-51); HEMOGLOBIN 7.9 g/dL (13.5-17.5); LYMPHOCYTES # (AUTO) 0.9 K/uL (0.8-4.8); LYMPHOCYTES % (AUTO) 16.5 % (20.0-44.0); MEAN CORPUSCULAR HGB CONC 32 g/dl (31.0-36.0); MEAN CORPUSCULAR VOLUME 91 fL (80-96); MONOCYTES # (AUTO) 0.4 K/uL (0.1-1.30); MONOCYTES % (AUTO) 7.5 % (2.0-12.0); NEUTROPHILS # (AUTO) 4.1 K/uL (1.8-8.9); NEUTROPHILS % (AUTO) 74.4 % (43.0-81.0); PLATELET COUNT (AUTO) 118 K/uL (150-450); RED BLOOD CELL COUNT(AUTO) 2.72 MIL/uL (4.5-6.0); WHITE BLOOD COUNT (AUTO) 5.5 K/uL (4.3-11.0)
[2021-03-15 13:21] LABS: ALBUMIN 2.3 g/dL (3.4-5.0); BILIRUBIN,TOTAL 0.3 mg/dL (0.2-1.0); CALCIUM, SERUM 8.2 mg/dL (8.5-10.1); CREATININE 2.8 mg/dL (0.6-1.3); MAGNESIUM 2.4 mg/dL (1.8-2.4); PHOSPHORUS 5.7 mg/dL (2.5-4.9); POTASSIUM 4.6 mmol/L (3.5-5.1); TOTAL PROTEIN, SERUM 5.8 g/dL (6.4-8.2)
[2021-03-15 16:00] VITALS: BP 141/61
[2021-03-15] MEDS: WARFARIN SODIUM 5 MG TABLET PO SCH (17:15)
[2021-03-15] MEDS: INSULIN REGULAR, HUMAN 100 UNIT/ML 3 ML VIAL SQ PRN (17:43)
--- NOTE | 2021-03-15 19:12 | NUR ---
RN CLOSING NOTES PATIENT REMAINS IN STABLE CONDITION THROUGHOUT SHIFT. BREATHING EVEN AND UNLABORED ON O2 4LPM VIA NC, TOLERATING WELL SAT 95 %. IV ACCESS ON RIGHT FOREARM AND MEGGAN PICC PATENT AND INTACT NO SIGNS OF INFILTRATIONS. HD CATH AT [facility] NOTED. ALL DUE MEDS GIVEN ORDERED. KEPT PATIENT CLEAN, DRY AND COMFORTABLE. ALL NEEDS ATTENDED. ALL APPLICABLE ISOLATION PRECAUTIONS IN PLACE. ALL SAFETY MEASURES IN PLACE: HOB ELEVATED, BED LOCKED AND IN LOWEST POSITION WITH SIDERAILS UP. CALL LIGHT WITHIN REACH. WILL ENDORSE TO ONCOMING NURSE FOR CONTINUITY OF CARE.
--- NOTE | 2021-03-15 19:40 | NUR ---
RN OPENING NOTES RECEIVED PATIENT AWAKE IN BED, A/O X 4, SETSWANA SPEAKING AND VERBALLY RESPONSIVE. ON 4L O2 VIA NC TOLERATED WELL. BREATHING EVEN AND UNLABORED. NO SOB OR ANY RESPIRATORY DISTRESS NOTED.IV ACCESS ON RFA #18, MEGGAN PICC LINE BOTH INTACT AND PATENT. HD CATH AT R IJ NOTED. NO BLEEDING NOTED. NO C/O PAIN OR DISCOMFORT. NO ACUTE DISTRESS. OLIVEIRA CATHETER IN PLACE, BLOOD NOTED IN URINE. PREVIOUS NURSE EXPLAINED THAT HE PULLED ON THE OLIVEIRA, HOWEVER WHEN PATIENT DENIES PULLING ON THE OLIVEIRA. ALL APPLICABLE ISOLATION PRECAUTIONS IN PLACE. ALL SAFETY MEASURES IN PLACE. BED LOCKED AND IN LOWEST POSITION WITH SIDE RAILS UP X3.PLACE CALL LIGHT WITHIN REACH. BED ALARM ON. WILL CONTINUE TO MONITOR PATIENT.
[2021-03-15 20:00] VITALS: BP 125/66
[2021-03-15] MEDS: QUETIAPINE FUMARATE 25 MG TABLET PO SCH (21:32)
[2021-03-15] MEDS: ATORVASTATIN 10 MG TABLET PO SCH (21:32)
[2021-03-16] VITALS: BP 133/62
[2021-03-16 04:00] VITALS: BP 156/64
[2021-03-16] MEDS: BLOOD SUGAR DIAGNOSTIC 1 EACH STRIP IN SCH ×4 (06:21→17:17)
--- NOTE | 2021-03-16 07:00 | NUR ---
RN NOTE NO CHANGES DURING SHIFT, MET ALL PATIENT NEEDS, WILL ENDORSE PATIENT CARE TO AM NURSE.
--- NOTE | 2021-03-16 07:40 | NUR ---
RN OPENING NOTES RECEIVED PATIENT AWAKE IN BED, A/O X 4, IRISH SPEAKING AND VERBALLY RESPONSIVE. ON 4L O2 VIA NC TOLERATED WELL SAT 97%. BREATHING EVEN AND UNLABORED. NO SOB OR ANY RESPIRATORY DISTRESS NOTED. IV ACCESS ON RFA #18, MEGGAN PICC LINE BOTH INTACT AND PATENT. HD CATH AT R IJ NOTED. NO BLEEDING NOTED. NO C/O PAIN OR DISCOMFORT. NO ACUTE DISTRESS. OLIVEIRA CATHETER IN PLACE INTACT AND PATENT WITH YELLOW CLEAR URINE. ALL APPLICABLE ISOLATION PRECAUTIONS IN PLACE. ALL SAFETY MEASURES IN PLACE. BED LOCKED AND IN LOWEST POSITION WITH SIDE RAILS UP X3.PLACE CALL LIGHT WITHIN REACH. BED ALARM ON. WILL CONTINUE TO MONITOR PATIENT ACCORDINGLY.
[2021-03-16 08:00] VITALS: BP 165/73
[2021-03-16] MEDS: DEXAMETHASONE 4 MG TABLET PO SCH (09:10)
[2021-03-16] MEDS: ASPIRIN EC 81 MG TABLET.DR PO SCH (09:11)
[2021-03-16] MEDS: DOXAZOSIN MESYLATE (4 MG) 4 MG TABLET PO SCH (09:11)
[2021-03-16] MEDS: ESCITALOPRAM OXALATE (10 MG) 10 MG TABLET PO SCH (09:11)
[2021-03-16] MEDS: CHOLECALCIFEROL 1,000 UNIT TABLET (VIT D3) PO SCH (09:11)
[2021-03-16] MEDS: NIFEdipine XL (30MG) 30 MG TAB PO SCH (09:11)
[2021-03-16] MEDS: hydrALAZINE HCL 50 MG TABLET PO SCH ×3 (09:12→17:13)
[2021-03-16] MEDS: NITROGLYCERIN 30 GM TUBE TP SCH ×2 (09:13→21:26)
[2021-03-16] MEDS: PANTOPRAZOLE 40 MG TABLET.DR PO SCH (09:20)
[2021-03-16] MEDS: FLUTICASONE/VILANTEROL 1 EACH BLST.W.DEV IH SCH (09:33)
[2021-03-16 12:00] VITALS: BP 133/64
[2021-03-16] MEDS: ACETAMINOPHEN 325 MG TABLET PO PRN (12:46)
--- NOTE | 2021-03-16 13:45 | NUR ---
RN NOTES OBTAINED NEW ORDER PER DR. MODI TO D/C OLIVEIRA CATHETER. F/C REMOVED, PATIENT TOLERATED WELL, NO BLEEDING NOTED. PATIENT DENIES ANY PAIN/DISCOMFORT AT THE TIME. ALL NEEDS ATTENDED. CALL LIGHT WITHIN REACH. WILL CONTINUE TO MONITOR PATIENT ACCORDINGLY.
[2021-03-16] MEDS ORDERED: IV NS 0.9% 500 ML IV ONE (14:00)
[2021-03-16 14:59] LABS: BASOPHILS % (AUTO) 0.1 % (0.0-2.0); EOSINOPHILS % (AUTO) 0.5 % (0.0-6.0); HEMATOCRIT 24 % (39-51); HEMOGLOBIN 7.7 g/dL (13.5-17.5); LYMPHOCYTES # (AUTO) 0.3 K/uL (0.8-4.8); LYMPHOCYTES % (AUTO) 4.4 % (20.0-44.0); MEAN CORPUSCULAR HGB CONC 32 g/dl (31.0-36.0); MEAN CORPUSCULAR VOLUME 91 fL (80-96); MONOCYTES # (AUTO) 0.2 K/uL (0.1-1.30); MONOCYTES % (AUTO) 2.4 % (2.0-12.0); NEUTROPHILS # (AUTO) 6.3 K/uL (1.8-8.9); NEUTROPHILS % (AUTO) 92.6 % (43.0-81.0); PLATELET COUNT (AUTO) 118 K/uL (150-450); RED BLOOD CELL COUNT(AUTO) 2.62 MIL/uL (4.5-6.0); WHITE BLOOD COUNT (AUTO) 6.8 K/uL (4.3-11.0)
[2021-03-16 16:00] VITALS: BP 139/78
[2021-03-16 16:00] LABS: CALCIUM, SERUM 7.9 mg/dL (8.5-10.1); CREATININE 2.3 mg/dL (0.6-1.3); MAGNESIUM 2.2 mg/dL (1.8-2.4); PHOSPHORUS 4.3 mg/dL (2.5-4.9); POTASSIUM 4.9 mmol/L (3.5-5.1)
[2021-03-16] MEDS: WARFARIN SODIUM 5 MG TABLET PO SCH (17:15)
[2021-03-16] MEDS: INSULIN REGULAR, HUMAN 100 UNIT/ML 3 ML VIAL SQ PRN (17:16)
--- NOTE | 2021-03-16 19:15 | NUR ---
RN OPENING NOTES RECEIVED PATIENT IN BED, AWAKE, A/O X4. 0N NASAL CANULA @ 3LPM, NO SOB NOTED, NO S/S OF DISTRESS NOTED.NOTED WITH IV ACCESS AT RFA G # 18 AND RIGHT HAND G#22 PATENT AND INTACT, FLUSHED WITH NS. NO COMPLAINS OF PAIN. SAFETY PRECAUTIONS IN PLACE; BED IN LOWEST POSITION AND LOCKED, RAILS UP X2, CALL LIGHT WITHIN REACH. WILL CONTINUE TO MONITOR PATIENT
[2021-03-16 19:29] LABS: LYMPHOCYTES % (MANUAL) 4 % (16-48); MONOCYTES % (MANUAL) 3 % (0-11.0); NEUTROPHILS % (MANUAL) 93 (42-76)
--- NOTE | 2021-03-16 19:50 | NUR ---
RN CLOSING NOTES PATIENT REMAINS IN STABLE CONDITION THROUGHOUT SHIFT. BREATHING EVEN AND UNLABORED ON O2 4LPM VIA NC, TOLERATING WELL SAT 95 %. IV ACCESS ON RIGHT FOREARM AND MEGGAN PICC PATENT AND INTACT NO SIGNS OF INFILTRATIONS. HD CATH AT [facility] NOTED. ALL DUE MEDS GIVEN ORDERED. KEPT PATIENT CLEAN, DRY AND COMFORTABLE. ALL NEEDS ATTENDED. ALL APPLICABLE ISOLATION PRECAUTIONS IN PLACE. ALL SAFETY MEASURES IN PLACE: HOB ELEVATED, BED LOCKED AND IN LOWEST POSITION WITH SIDERAILS UP. CALL LIGHT WITHIN REACH. ENDORSED TO ONCOMING NURSE FOR CONTINUITY OF CARE.
[2021-03-16 20:00] VITALS: BP 143/68
[2021-03-16] MEDS: QUETIAPINE FUMARATE 25 MG TABLET PO SCH (21:26)
[2021-03-16] MEDS: ATORVASTATIN 10 MG TABLET PO SCH (21:27)
[2021-03-17] VITALS: BP 138/61
[2021-03-17] MEDS: IV NS 0.9% 1,000 ML IV SCH ×2 (00:37→14:49)
[2021-03-17] MEDS: BLOOD SUGAR DIAGNOSTIC 1 EACH STRIP IN SCH ×4 (00:46→17:27)
[2021-03-17 04:00] VITALS: BP 141/62
[2021-03-17] MEDS: ACETAMINOPHEN 325 MG TABLET PO PRN ×3 (05:53→16:02)
--- NOTE | 2021-03-17 06:50 | NUR ---
RN CLOSING NOTES NO SIGNIFICANT CHANGES THROUGH OUT THE SHIFT, NO S/S OF DISTRESS NOTED.NOTED WITH IV ACCESS AT RFA G # 18 AND RIGHT HAND G#22 PATENT AND INTACT, FLUSHED WITH NS. ALL DUE MEDS GIVEN ORDERED. NO COMPLAINS OF PAIN. SAFETY PRECAUTIONS IN PLACE; BED IN LOWEST POSITION AND LOCKED, RAILS UP X2, CALL LIGHT WITHIN REACH. WILL CONTINUE TO MONITOR PATIENT
--- NOTE | 2021-03-17 06:55 | NUR ---
RN NOTES PATIENT C/O OF PAIN ON RT. SIDE UNDER BREAST, NON RADIATING, ORDER STAT EKG, RT. NOTIFIED. AWAITING FOR RESULT. ENDORSED TO MORNING SHIFT.
--- NOTE | 2021-03-17 07:45 | NUR ---
RN OPENING NOTES RECEIVED PATIENT AWAKE IN BED, A/O X 4, [place] SPEAKING AND VERBALLY RESPONSIVE. ON 4L O2 VIA NC TOLERATED WELL SAT 88%, INCREASED O2 TO 6LPM VIA NC SAT WENT UP TO 92%. BREATHING EVEN AND UNLABORED. NO SOB NOTED. IV ACCESS ON RFA #18, MEGGAN PICC LINE, INTACT AND PATENT. HD CATH AT [facility] NOTED. NO BLEEDING NOTED. PATIENT C/O RIGHT SIDE CHEST PAIN NON-RADIATING AWAITING FOR EKG PROCEDURE TO BE DONE. ALL APPLICABLE ISOLATION PRECAUTIONS IN PLACE. ALL SAFETY MEASURES IN PLACE. BED LOCKED AND IN LOWEST POSITION WITH SIDE RAILS UP X3.PLACE CALL LIGHT WITHIN REACH. BED ALARM ON. WILL CONTINUE TO MONITOR PATIENT ACCORDINGLY.
[2021-03-17 08:00] VITALS: BP 142/83
[2021-03-17] MEDS: DOXAZOSIN MESYLATE (4 MG) 4 MG TABLET PO SCH (09:10)
[2021-03-17] MEDS: hydrALAZINE HCL 50 MG TABLET PO SCH ×3 (09:10→16:16)
[2021-03-17] MEDS: ASPIRIN EC 81 MG TABLET.DR PO SCH (09:10)
[2021-03-17] MEDS: ESCITALOPRAM OXALATE (10 MG) 10 MG TABLET PO SCH (09:10)
[2021-03-17] MEDS: PANTOPRAZOLE 40 MG TABLET.DR PO SCH (09:11)
[2021-03-17] MEDS: NIFEdipine XL (30MG) 30 MG TAB PO SCH (09:11)
[2021-03-17] MEDS: DEXAMETHASONE 4 MG TABLET PO SCH (09:11)
[2021-03-17] MEDS: CHOLECALCIFEROL 1,000 UNIT TABLET (VIT D3) PO SCH (09:11)
[2021-03-17] MEDS: NITROGLYCERIN 30 GM TUBE TP SCH ×2 (09:13→22:27)
[2021-03-17] MEDS: FLUTICASONE/VILANTEROL 1 EACH BLST.W.DEV IH SCH (09:29)
[2021-03-17 09:31] LABS: BASOPHILS % (AUTO) 0.6 % (0.0-2.0); EOSINOPHILS % (AUTO) 0.8 % (0.0-6.0); HEMATOCRIT 24 % (39-51); HEMOGLOBIN 7.7 g/dL (13.5-17.5); LYMPHOCYTES # (AUTO) 0.9 K/uL (0.8-4.8); MEAN CORPUSCULAR HGB CONC 32 g/dl (31.0-36.0); MEAN CORPUSCULAR VOLUME 92 fL (80-96); MONOCYTES # (AUTO) 0.4 K/uL (0.1-1.30); MONOCYTES % (AUTO) 5.9 % (2.0-12.0); NEUTROPHILS # (AUTO) 6.1 K/uL (1.8-8.9); NEUTROPHILS % (AUTO) 80.7 % (43.0-81.0); PLATELET COUNT (AUTO) 134 K/uL (150-450); RED BLOOD CELL COUNT(AUTO) 2.64 MIL/uL (4.5-6.0); WHITE BLOOD COUNT (AUTO) 7.5 K/uL (4.3-11.0)
[2021-03-17 10:01] LABS: CALCIUM, SERUM 7.8 mg/dL (8.5-10.1); CREATININE 2.1 mg/dL (0.6-1.3); POTASSIUM 4.4 mmol/L (3.5-5.1)
--- NOTE | 2021-03-17 10:33 | NUR ---
RN NOTES RELAYED CXR AND EKG RESULTS TO CLAUDIA SCHWARZ [facility] [facility], NO NEW ORDERS AT THE TIME. PATIENT IS SLEEPING AT THE TIME. BREATHING EVEN AND UNLABORED. NO SOB OR ANY ACUTE DISTRESS NOTED. ALL SAFETY MEASURES IN PLACE HOB ELEVATED, BED LOCKED AND IN LOWEST POSITION CALL LIGHT WITHIN REACH. WILL CONTINUE TO MONITOR
[2021-03-17 12:00] VITALS: BP 121/62
[2021-03-17] MEDS: INSULIN REGULAR, HUMAN 100 UNIT/ML 3 ML VIAL SQ PRN ×3 (12:00→22:39)
--- NOTE | 2021-03-17 15:52 | NUR ---
RN NOTES SEEN BY WITH NEW ORDERS: OKAY TO DISCONTINUE THE RIGHT IJ TUNNELED CATHETER BY HEMODIALYSIS NURSE. NO FURTHER DIALYSIS NEEDED AT THIS TIME, NOTED AND CARRIED OUT.
[2021-03-17 16:00] VITALS: BP 133/70
[2021-03-17] MEDS: WARFARIN SODIUM 5 MG TABLET PO SCH (16:17)
--- NOTE | 2021-03-17 19:20 | NUR ---
BONDING EQUIPMENT OPERATOR OPENING NOTE: RECEIVED REPORT. PATIENT AWAKE. ALERT AND ORIENTED TO PERSON, PLACE TIME AND SITUATION. PATIENT IN NAD AND STABLE AT THIS TIME. SPO2 94% ON 5L O2 VIA NC. ENCOURAGED AND DEMONSTRATED DEEP BREATHING EXERCISES. PATIENT RETURNS DEMONSTRATION. TELEMETRY READING SR 80. NO PRESENCE OF CYANOSIS OBSERVED. BED IN LOW/LOCKED POSITION. SIDE RAILS UP X2. HOB ELEVATED TO SEMI-FOWLERS POSITION. PATIENT DEMONSTRATES ABILITY TO USE CALL LIGHT AND VERBALIZE NEEDS EFFECTIVELY. CALL LIGHT AND FREQUENTLY USED ITEMS WITHIN REACH.
--- NOTE | 2021-03-17 19:39 | NUR ---
RN CLOSING NOTES PATIENT REMAINS IN STABLE CONDITION THROUGHOUT SHIFT. BREATHING EVEN AND UNLABORED ON O2 5LPM VIA NC, TOLERATING WELL SAT 94 %. IV ACCESS ON RIGHT FOREARM RIGHT HAND PATENT AND INTACT NO SIGNS OF INFILTRATIONS. HD CATH AT [facility] NOTED, AWAITING FOR HD NURSE TO REMOVE RIGHT IJ. ALL DUE MEDS GIVEN ORDERED. KEPT PATIENT CLEAN, DRY AND COMFORTABLE. ALL NEEDS ATTENDED. ALL APPLICABLE ISOLATION PRECAUTIONS IN PLACE. ALL SAFETY MEASURES IN PLACE: HOB ELEVATED, BED LOCKED AND IN LOWEST POSITION WITH SIDERAILS UP. CALL LIGHT WITHIN REACH. ENDORSED TO ONCOMING NURSE FOR CONTINUITY OF CARE.
[2021-03-17 20:00] VITALS: BP 112/69
[2021-03-17] MEDS: ATORVASTATIN 10 MG TABLET PO SCH (22:28)
[2021-03-17] MEDS: QUETIAPINE FUMARATE 25 MG TABLET PO SCH (22:28)
[2021-03-18] VITALS (8 sets, daily range): BP systolic 99–139; BP diastolic 53–68
[2021-03-18] MEDS: BLOOD SUGAR DIAGNOSTIC 1 EACH STRIP IN SCH ×4 (00:11→17:23)
[2021-03-18] MEDS: INSULIN REGULAR, HUMAN 100 UNIT/ML 3 ML VIAL SQ PRN ×3 (05:15→17:24)
--- NOTE | 2021-03-18 06:20 | NUR ---
BRIQUETTE MACHINE OPERATOR HELPER CLOSING NOTE: PATIENT SLEPT WELL THROUGHOUT MAJORITY OF THE EVENING. EASILY AROUSED BY VOICE COMMAND. PATIENT IS ALERT AND ORIENTED X4. PATIENT VERBALIZES THAT IT HURTS IN HIS LUNGS WHEN HE DOES THE DEEP BREATHING EXERCISES. SPO2 93% ON 5L O2 VIA NC. HOB KEPT ABOVE 45 DEGREES THROUGHOUT THE NIGHT. TELEMETRY READING SR. BED IN LOW/LOCKED POSITION. SIDE RAILS UP X2. PATIENT DEMONSTRATES ABILITY TO USE CALL LIGHT AND VERBALIZE NEEDS EFFECTIVELY. CALL LIGHT WITHIN REACH.
[2021-03-18] MEDS: PANTOPRAZOLE 40 MG TABLET.DR PO SCH (06:42)
--- NOTE | 2021-03-18 07:34 | NUR ---
RN OPENING NOTE: RECEIVED PATIENT RESTING IN BED. A/O X4 ON 4L O2 VIA NC. NO COMPLAINTS OF PAIN OR SOB. IV ACCESS NOTED ON RT ARM 18g AND RT HAND 20g INTACT AND PATENT. HD CATH ALSO NOTED ON RIGHT J. SAFETY MEASURE IN PLACE BED LOCKED IN THE LOWEST POSITION, SEMI FOWLERS WITH 2 SIDE RAILS UP. CALL LIGHT WITHIN REACH.
--- NOTE | 2021-03-18 07:38 | NUR ---
RN NOTE PATIENT REFUSED MORNING LAB DRAW, LAB WILL TRY TO RE DRAW BLOOD WORK AT A LATER TIME.
[2021-03-18] MEDS: CHOLECALCIFEROL 1,000 UNIT TABLET (VIT D3) PO SCH (09:27)
[2021-03-18] MEDS: DEXAMETHASONE 4 MG TABLET PO SCH (09:27)
[2021-03-18] MEDS: DOXAZOSIN MESYLATE (4 MG) 4 MG TABLET PO SCH (09:28)
[2021-03-18] MEDS: ASPIRIN EC 81 MG TABLET.DR PO SCH (09:28)
[2021-03-18] MEDS: ESCITALOPRAM OXALATE (10 MG) 10 MG TABLET PO SCH (09:28)
[2021-03-18] MEDS: NIFEdipine XL (30MG) 30 MG TAB PO SCH (09:28)
[2021-03-18] MEDS: hydrALAZINE HCL 50 MG TABLET PO SCH ×3 (09:28→17:16)
[2021-03-18] MEDS: NITROGLYCERIN 30 GM TUBE TP SCH ×2 (09:29→21:44)
[2021-03-18] MEDS: FLUTICASONE/VILANTEROL 1 EACH BLST.W.DEV IH SCH (09:41)
--- NOTE | 2021-03-18 12:44 | NUR ---
RN NOTE PATIENTS BLOOD PRESSURE NOTED TO BE 99/54 HELD HYDRALAZINE BASED ON MEDICATION PARAMETERS
[2021-03-18 14:21] LABS: BASOPHILS % (AUTO) 0.2 % (0.0-2.0); EOSINOPHILS % (AUTO) 0.1 % (0.0-6.0); HEMATOCRIT 26 % (39-51); HEMOGLOBIN 8.1 g/dL (13.5-17.5); LYMPHOCYTES # (AUTO) 0.3 K/uL (0.8-4.8); LYMPHOCYTES % (AUTO) 4.4 % (20.0-44.0); MEAN CORPUSCULAR HGB CONC 32 g/dl (31.0-36.0); MEAN CORPUSCULAR VOLUME 92 fL (80-96); MONOCYTES # (AUTO) 0.2 K/uL (0.1-1.30); MONOCYTES % (AUTO) 3.5 % (2.0-12.0); NEUTROPHILS # (AUTO) 5.3 K/uL (1.8-8.9); NEUTROPHILS % (AUTO) 91.8 % (43.0-81.0); PLATELET COUNT (AUTO) 126 K/uL (150-450); RED BLOOD CELL COUNT(AUTO) 2.79 MIL/uL (4.5-6.0); WHITE BLOOD COUNT (AUTO) 5.7 K/uL (4.3-11.0)
[2021-03-18] MEDS ORDERED: FUROSEMIDE 20 MG/2 ML VIAL IV ONE (14:30)
[2021-03-18 14:36] LABS: CALCIUM, SERUM 8.3 mg/dL (8.5-10.1); CREATININE 2.7 mg/dL (0.6-1.3); MAGNESIUM 2.2 mg/dL (1.8-2.4); PHOSPHORUS 5.6 mg/dL (2.5-4.9); POTASSIUM 5.3 mmol/L (3.5-5.1)
--- NOTE | 2021-03-18 15:25 | NUR ---
RN NOTE RECEIVED CALL FROM LAB REGARDING PATIENT INR ELEVATED TO 4.53 INFORMED DOCTOR CHONG. BUN WAS ALSO ELEVATED INFORMED DOCTOR MARY
--- NOTE | 2021-03-18 16:37 | NUR ---
RN NOTE PATIENTS HD CATHETER REMOVED AT BED SIDE BY DIALYSIS NURSE.
[2021-03-18] MEDS: WARFARIN SODIUM 5 MG TABLET PO SCH (17:17)
--- NOTE | 2021-03-18 18:43 | NUR ---
RN CLOSING NOTE: PATIENT RESTING IN BED. A/O X4 ON 4L O2 VIA NC. NO COMPLAINTS OF PAIN OR SOB. IV ACCESS NOTED ON RT ARM 18g AND RT HAND 20g INTACT AND PATENT. SCHEDULED MEDICATIONS GIVEN. SAFETY MEASURE IN PLACE BED LOCKED IN THE LOWEST POSITION, SEMI FOWLERS WITH 2 SIDE RAILS UP. CALL LIGHT WITHIN REACH. WILL ENDORSE TO NIGHT NURSE FOR RODDY.
--- NOTE | 2021-03-18 19:10 | NUR ---
RN NOTES RECEIVED REPORT FROM MORNING RN. PATIENT IN BED ASLEEP. WITH OXYGEN VIA NASAL CANULA AT 4LPM SATING 92%. WITH RFA # 18, R HAND # 20 PATENT FLUSHES WELL. VITAL SIGNS TAKEN AND RECORDED AFEBRILE. S/P R IJ REMOVAL NO BLEEDING NOTED DRESSING INTACT. ALL SAFETY MEASURES IN PLACE AT ALL TIMES. BED ON LOWEST POSITION AND LOCKED. CALL LIGHT WITHIN REACH. WILL CONTINUE TO MONITOR THE PATIENT.
[2021-03-18] MEDS: QUETIAPINE FUMARATE 25 MG TABLET PO SCH (21:41)
[2021-03-18] MEDS: ATORVASTATIN 10 MG TABLET PO SCH (21:41)
[2021-03-19] VITALS: BP 103/69
--- NOTE | 2021-03-19 | NUR ---
RN NOTES PATIENT BS 189 MG/DL DUE REGULAR INSULIN 3 UNITS PER SLIDING GIVEN. PATIENT OXYGEN 87 WHEN SLEEPING PUT ON REGULAR MASK WHILE ASLEEP WILL CLOSELY MONITOR THE PATIENT.
[2021-03-19] MEDS: BLOOD SUGAR DIAGNOSTIC 1 EACH STRIP IN SCH ×4 (00:17→17:22)
[2021-03-19] MEDS: INSULIN REGULAR, HUMAN 100 UNIT/ML 3 ML VIAL SQ PRN ×2 (00:22→17:23)
[2021-03-19 04:00] VITALS: BP 116/51
--- NOTE | 2021-03-19 06:55 | NUR ---
RN NOTES PATIENT IN BED RESPONSIVE TO VERBAL STIMULI. WITH OXYGEN INHALATION VIA SIMPLE MASK AT 8LPM SATING 94%. ALL DUE MEDS GIVEN ORDERED. ALL NEEDS ATTENDED PROMPTLY. FREQUENT VISUAL MONITORING RENDERED TO PATIENT. ALL SAFETY MEASURES IN PLACE AT ALL TIMES. HOB ELEVATED. CALL LIGHT WITHIN REACH. WILL ENDORSED TO MORNING NURSE FO RODDY
--- NOTE | 2021-03-19 07:42 | NUR ---
LICENSED ACUPUNCTURIST OPENING NOTES RECEIVED PATIENT IN BED ASLEEP WITH OXYGEN VIA SIMPLE MASK AT 8LPM SATING 96%. PATIENT IS NOTED WITH RFA # 18, R HAND # 20 PATENT FLUSHES WELL AND INTACT. VITAL SIGNS TAKEN AND RECORDED AFEBRILE. S/P R IJ REMOVAL NO BLEEDING NOTED DRESSING INTACT. ALL SAFETY MEASURES IN PLACE AT ALL TIMES. BED ON LOWEST POSITION AND LOCKED. CALL LIGHT WITHIN REACH. WILL CONTINUE TO MONITOR THE PATIENT.
[2021-03-19 08:00] VITALS: BP 108/57
[2021-03-19] MEDS: CHOLECALCIFEROL 1,000 UNIT TABLET (VIT D3) PO SCH (08:57)
[2021-03-19] MEDS: ESCITALOPRAM OXALATE (10 MG) 10 MG TABLET PO SCH (08:57)
[2021-03-19] MEDS: ASPIRIN EC 81 MG TABLET.DR PO SCH (08:57)
[2021-03-19] MEDS: PANTOPRAZOLE 40 MG TABLET.DR PO SCH (08:57)
[2021-03-19] MEDS: DEXAMETHASONE 4 MG TABLET PO SCH (08:58)
[2021-03-19] MEDS: hydrALAZINE HCL 50 MG TABLET PO SCH ×3 (08:58→17:23)
[2021-03-19] MEDS: DOXAZOSIN MESYLATE (4 MG) 4 MG TABLET PO SCH (08:59)
[2021-03-19] MEDS: NIFEdipine XL (30MG) 30 MG TAB PO SCH (08:59)
[2021-03-19] MEDS: NITROGLYCERIN 30 GM TUBE TP SCH ×2 (09:00→21:52)
[2021-03-19] MEDS: FLUTICASONE/VILANTEROL 1 EACH BLST.W.DEV IH SCH (09:21)
[2021-03-19 10:28] LABS: BASOPHILS % (AUTO) 0.5 % (0.0-2.0); EOSINOPHILS % (AUTO) 1.1 % (0.0-6.0); HEMATOCRIT 25 % (39-51); HEMOGLOBIN 7.7 g/dL (13.5-17.5); LYMPHOCYTES # (AUTO) 0.7 K/uL (0.8-4.8); LYMPHOCYTES % (AUTO) 14.2 % (20.0-44.0); MEAN CORPUSCULAR HGB CONC 31 g/dl (31.0-36.0); MEAN CORPUSCULAR VOLUME 94 fL (80-96); MONOCYTES # (AUTO) 0.3 K/uL (0.1-1.30); NEUTROPHILS # (AUTO) 3.6 K/uL (1.8-8.9); NEUTROPHILS % (AUTO) 77.2 % (43.0-81.0); PLATELET COUNT (AUTO) 137 K/uL (150-450); RED BLOOD CELL COUNT(AUTO) 2.63 MIL/uL (4.5-6.0); WHITE BLOOD COUNT (AUTO) 4.6 K/uL (4.3-11.0)
[2021-03-19 10:40] LABS: CALCIUM, SERUM 8.4 mg/dL (8.5-10.1); CREATININE 3.1 mg/dL (0.6-1.3); MAGNESIUM 2.4 mg/dL (1.8-2.4); PHOSPHORUS 6.1 mg/dL (2.5-4.9); POTASSIUM 5.7 mmol/L (3.5-5.1)
[2021-03-19] MEDS ORDERED: INSULIN REGULAR, HUMAN 100 UNIT/ML 10 ML VIAL IV ONE (11:30)
[2021-03-19] MEDS ORDERED: SODIUM POLYSTYRENE SULFONATE 15 G/60 ML BOTTLE PO ONE (11:30)
[2021-03-19] MEDS ORDERED: Calcium Gluconate 1GM/10ML 4.65 MEQ in IV D5W 50 ML IV ONE (11:30)
[2021-03-19] MEDS ORDERED: DEXTROSE 50%-WATER 50 ML DISP.SYRIN IVP ONE (11:30)
[2021-03-19 12:00] VITALS: BP 120/81
--- NOTE | 2021-03-19 12:00 | NUR ---
RN NOTES PATIENT ACCUCHECK SHOWS 94 BLOOD GLUCOSE. REGULAR INSULIN HELD PER SLIDING SCALE.
[2021-03-19] MEDS: ACETAMINOPHEN 325 MG TABLET PO PRN ×2 (12:11→21:54)
--- NOTE | 2021-03-19 13:28 | NUR ---
RN NOTES PATIENT PUT ON HIGH FLOW DELIVERY VIA NASAL CANNULA FIO2 60% ON 15LPM RATE PER DR. SHAY'S ORDERS. PATIENT IS SATING 86-90%. RESPIRATORY THERAPIST SAYS THE O2 SAT IS OK FOR A COPD PATIENT. WILL CONTINUE TO MONITOR PATIENT.
--- NOTE | 2021-03-19 13:34 | NUR ---
pt. is awake and alert placed into high flow per dr. Brandt 50 flow/60% fio2. pt. 92 - 93% spo2. Addendum: 03/19/21 at 1336 by NIDHI LIANG RT Amended: Links added.
[2021-03-19 16:00] VITALS: BP 134/47
--- NOTE | 2021-03-19 17:00 | NUR ---
RN NOTES PATIENT BLOOD GLUCOSE 135. GIVEN 2 UNITS OF REGULAR INSULIN SUBCUTANEOUSLY. WILL CONTINUE TO MONITOR.
--- NOTE | 2021-03-19 18:15 | NUR ---
RN NOTES PATIENT REMAINS STABLE THROUGHOUT THE SHIFT. NO SIGNIFICANT CHANGES IN HEALTH CONDITION. ALL DUE MEDS GIVEN ORDERED. STILL ON ROOM AIR SATING 93% VIA HIGH FLOW NASAL CANNULA 15LPM. RT IS AWARE OF THE O2 SAT AND SAID NO ACTIONS NECESSARY AT THIS TIME. ALL NEEDS ATTENDED PROMPTLY. ALL SAFETY MEASURES IN PLACE AT ALL TIMES. CALL LIGHT WITHIN REACH. BED ON LOWEST POSITION AND LOCKED. WILL ENDORSE TO ONCOMING SHIFT.
--- NOTE | 2021-03-19 19:10 | NUR ---
RN NOTES RECEIVED REPORT FROM MORNING RN. PATIENT IN BED A/O X 4 ZIMBABWEAN SPEAKING. WITH IV ACCESS AT R FA#18, R HAND # 20 FLUSHES WELL. ON HF AT 15 L, 60% FIO2 TOLERATING WELL SATING 90%. VITAL SIGNS TAKEN AND RECORDED AFEBRILE. PATIENT REPOSITION IN BED AND PUT HOB ELEVATED. ALL SAFETY MEASURES IN PLACE AT ALL TIMES. CALL LIGHT WITHIN REACH. BED ON LOWEST POSITION AND LOCKED. WILL CLOSELY MONITOR THE PATIENT.
[2021-03-19 20:00] VITALS: BP 122/55
[2021-03-19] MEDS: ATORVASTATIN 10 MG TABLET PO SCH (21:52)
[2021-03-19] MEDS: QUETIAPINE FUMARATE 25 MG TABLET PO SCH (21:52)
[2021-03-20] VITALS: BP 110/56
--- NOTE | 2021-03-20 | NUR ---
RN NOTES BS 125 MG/DL NO INSULIN COVERAGE AT THIS TIME. WILL CONTINUE TO MONITOR PATIENT COMFORTABLE IN BED. SATING 90%
[2021-03-20] MEDS: BLOOD SUGAR DIAGNOSTIC 1 EACH STRIP IN SCH ×4 (00:10→17:12)
[2021-03-20 04:00] VITALS: BP 115/54
--- NOTE | 2021-03-20 06:00 | NUR ---
RN NOTES BS 115 MG/DL NO INSULIN COVERAGE.
--- NOTE | 2021-03-20 06:50 | NUR ---
RN NOTES PATIENT REMAINS STABLE THROUGHOUT THE SHIFT. NO SIGNIFICANT CHANGES IN HEALTH CONDITION. ALL DUE MEDS GIVEN ORDERED. STILL ON ROOM AIR SATING 92% VIA HIGH FLOW 15LPM 60%. PLAN FRO HD AND IJ CATHETER RE-INSERTION. ALL NEEDS ATTENDED PROMPTLY. ALL SAFETY MEASURES IN PLACE AT ALL TIMES. CALL LIGHT WITHIN REACH. BED ON LOWEST POSITION AND LOCKED. FREQUENT VISUAL MONITORING RENDERED. WILL ENDORSE TO ONCOMING SHIFT.
--- NOTE | 2021-03-20 07:15 | NUR ---
RN OPENING NOTES RECEIVED PATIENT IN BED A/O X 3-4 VINCENTIAN SPEAKING. ON HF AT 15 L, 60% FIO2 TOLERATING WELL SATING 90. NO SOB OR ACUTE DISTRESS NOTED. WITH IV ACCESS AT R FA#18G, R HAND # 20G, PATENT AND INTACT, FLUSHES WELL. ALL APPLICABLE ISOLATION PRECAUTIONS IN PLACE. ALL SAFETY MEASURES IN PLACE AT ALL TIMES. HOB ELEVATED. CALL LIGHT WITHIN REACH. BED ON LOWEST POSITION AND LOCKED. WILL MONITOR PATIENT ACCORDINGLY.
[2021-03-20 08:00] VITALS: BP 133/83
[2021-03-20 08:03] LABS: BASOPHILS % (AUTO) 0.3 % (0.0-2.0); EOSINOPHILS % (AUTO) 0.9 % (0.0-6.0); HEMATOCRIT 24 % (39-51); HEMOGLOBIN 7.6 g/dL (13.5-17.5); LYMPHOCYTES # (AUTO) 0.6 K/uL (0.8-4.8); LYMPHOCYTES % (AUTO) 13.3 % (20.0-44.0); MEAN CORPUSCULAR HGB CONC 31 g/dl (31.0-36.0); MEAN CORPUSCULAR VOLUME 93 fL (80-96); MONOCYTES # (AUTO) 0.3 K/uL (0.1-1.30); MONOCYTES % (AUTO) 7.1 % (2.0-12.0); NEUTROPHILS # (AUTO) 3.3 K/uL (1.8-8.9); NEUTROPHILS % (AUTO) 78.4 % (43.0-81.0); PLATELET COUNT (AUTO) 129 K/uL (150-450); RED BLOOD CELL COUNT(AUTO) 2.62 MIL/uL (4.5-6.0); WHITE BLOOD COUNT (AUTO) 4.2 K/uL (4.3-11.0)
[2021-03-20 08:17] LABS: CALCIUM, SERUM 7.9 mg/dL (8.5-10.1); CREATININE 3.7 mg/dL (0.6-1.3); MAGNESIUM 2.2 mg/dL (1.8-2.4); PHOSPHORUS 6.4 mg/dL (2.5-4.9); POTASSIUM 5.4 mmol/L (3.5-5.1)
[2021-03-20] MEDS: NIFEdipine XL (30MG) 30 MG TAB PO SCH (08:46)
[2021-03-20] MEDS: CHOLECALCIFEROL 1,000 UNIT TABLET (VIT D3) PO SCH (08:47)
[2021-03-20] MEDS: DEXAMETHASONE 4 MG TABLET PO SCH (08:47)
[2021-03-20] MEDS: hydrALAZINE HCL 50 MG TABLET PO SCH ×3 (08:47→17:12)
[2021-03-20] MEDS: PANTOPRAZOLE 40 MG TABLET.DR PO SCH (08:47)
[2021-03-20] MEDS: ESCITALOPRAM OXALATE (10 MG) 10 MG TABLET PO SCH (08:47)
[2021-03-20] MEDS: ASPIRIN EC 81 MG TABLET.DR PO SCH (08:47)
[2021-03-20] MEDS: DOXAZOSIN MESYLATE (4 MG) 4 MG TABLET PO SCH (08:47)
[2021-03-20] MEDS: NITROGLYCERIN 30 GM TUBE TP SCH ×2 (08:48→21:00)
[2021-03-20] MEDS: FLUTICASONE/VILANTEROL 1 EACH BLST.W.DEV IH SCH (09:35)
[2021-03-20 12:00] VITALS: BP 107/62
--- NOTE | 2021-03-20 12:41 | NUR ---
ORAL PATHOLOGIST NOTE DR LY ESPARZA TO GET CONSENT FOR HD CATHETER PLACEMENT
[2021-03-20] MEDS: BISACODYL SUPP (10 MG) 10 MG/SUPP.RECT SUPP.RECT RC PRN (15:24)
[2021-03-20 16:00] VITALS: BP 125/60
[2021-03-20] MEDS ORDERED: WARFARIN SODIUM 2 MG TABLET PO SCH (17:00)
--- NOTE | 2021-03-20 17:05 | NUR ---
RN NOTES DR. CLAUDIA SCHWARZ BY BEDSIDE, PERFORMED HEMODIALYSIS CATH PLACEMENT ON PATIENT, TOLERATED WELL. HD CATHETER ON RIGHT GROIN, MINIMAL BLEEDING NOTED. INFORMED HD NURSE OK TO DO HD ON PATIENT.
[2021-03-20] MEDS: INSULIN REGULAR, HUMAN 100 UNIT/ML 3 ML VIAL SQ PRN (17:14)
--- NOTE | 2021-03-20 19:41 | NUR ---
RN CLOSING NOTES PATIENT REMAINED STABLE THROUGHOUT THE SHIFT. BREATHING EVEN AND UNLABORED. NO SOB OR ANY ACUTE DISTRESS NOTED. IV ACCESS ON RIGHT FOREARM AND RIGHT HAND PATENT AND INTACT. ALL MEDICATIONS GIVEN ORDERED. HD NURSE AT BEDSIDE, PATIENT RECEIVING DIALYSIS, TOLERATING WELL. ALL APPLICABLE ISOLATION PRECAUTIONS MAINTAINED. ALL SAFETY MEASURES OBSERVED THROUGHOUT THE SHIFT. BED IN LOWEST POSITION AND LOCKED, SIDE RAILS UP. CALL LIGHT WITHIN REACH OF PATIENT. ENDORSED TO ONCOMING NURSE FOR RODDY.
[2021-03-20 20:00] VITALS: BP 115/61
--- NOTE | 2021-03-20 20:00 | NUR ---
AGRICULTURAL ECONOMICS TEACHER OPENING NOTES RECEIVED PATIENT IN BED A/O X 1-2 LIBYAN SPEAKING. ON HF AT 15 L, 60% FIO2 TOLERATING WELL SATING 87-94%. NO SOB OR ACUTE DISTRESS NOTED. PATIENT RECEIVING HEMODIALYSIS NOW, FABIOLA HD NURSE NEXT TO PATIENT. ON TELE MONITOR HR 84 SR. PATIENT HAS WITH IV ACCESS AT R FA#18G, R HAND # 20G, PATENT AND INTACT, FLUSHES WELL. ALL APPLICABLE ISOLATION PRECAUTIONS IN PLACE. ALL SAFETY MEASURES IN PLACE AT ALL TIMES. HOB ELEVATED. CALL LIGHT WITHIN REACH. BED ON LOWEST POSITION AND LOCKED.
--- NOTE | 2021-03-20 20:45 | NUR ---
SON TISH CALLED TO FOLLOW UP, TOLD HIM THAT HE IS DOING HEMODIALYSIS AND VITALS ARE STABLE.GAVE GENERAL INFO ABOUT THE LABS. AND INFORMED THAT HE WILL HAVE A MORNING CHEST X RAY.
--- NOTE | 2021-03-20 21:00 | NUR ---
RN NOTE NITRO HELD, PATIENT WAS IN DIALYSIS AND HYPOTENSIVE, charge nurse aware.
[2021-03-20] MEDS: ATORVASTATIN 10 MG TABLET PO SCH (21:36)
[2021-03-20] MEDS: QUETIAPINE FUMARATE 25 MG TABLET PO SCH (21:36)
--- NOTE | 2021-03-20 21:48 | NUR ---
RN NOTE FABIOLA -HD NURSE FINISHED DIALYSIS - 2L OUTPUT
[2021-03-21] VITALS: BP 93/34
[2021-03-21] MEDS: BLOOD SUGAR DIAGNOSTIC 1 EACH STRIP IN SCH ×4 (00:14→17:47)
--- NOTE | 2021-03-21 01:48 | NUR ---
RN NOTE SPOKE WITH ELIZABETH, GAVE A GENERAL UPDATE. THAT HE IS TIRED FROM DIALYSIS, SLEEPING, AND RESTING. HE ASKED ABOUT VISITING, I SAID HE CAN COME BY WINDOW TOMORROW TO VISIT, BUT NOT IN THE UNIT.
[2021-03-21 04:00] VITALS: BP 112/51
--- NOTE | 2021-03-21 07:40 | NUR ---
HEAD TURNING MACHINE OPERATOR OPENING NOTES RECEIVED PATIENT IN BED A/O X 3-4 GUYANESE SPEAKING. ON HF AT 15 L, 60% FIO2 TOLERATING WELL SATING 90. NO SOB OR ACUTE DISTRESS NOTED. WITH IV ACCESS AT R FA#18G, R HAND # 20G, PATENT AND INTACT, FLUSHES WELL. ALL APPLICABLE ISOLATION PRECAUTIONS IN PLACE. ALL SAFETY MEASURES IN PLACE AT ALL TIMES. HOB ELEVATED. CALL LIGHT WITHIN REACH. BED ON LOWEST POSITION AND LOCKED.
[2021-03-21 08:00] VITALS: BP 107/50
--- NOTE | 2021-03-21 08:08 | NUR ---
RN CLOSING NOTE PATIENT IS NOW A/O X 3 , ABLE TO RESPOND BETTER TO QUESTIONS AND IS MORE ALERT. I INFORMED THE PATIENT THAT HIS FAMILY CALLED TO CHECK ON HIM. NO SIGNIFICANT CHANGES THROUGHOUT THE NIGHT, WILL ENDORSE PLAN OF CARE TO AM NURSE.
[2021-03-21] MEDS: DEXAMETHASONE 4 MG TABLET PO SCH (08:52)
[2021-03-21] MEDS: NIFEdipine XL (30MG) 30 MG TAB PO SCH (08:53)
[2021-03-21] MEDS: ASPIRIN EC 81 MG TABLET.DR PO SCH (08:53)
[2021-03-21] MEDS: CHOLECALCIFEROL 1,000 UNIT TABLET (VIT D3) PO SCH (08:53)
[2021-03-21] MEDS: hydrALAZINE HCL 50 MG TABLET PO SCH ×3 (08:54→17:00)
[2021-03-21] MEDS: NITROGLYCERIN 30 GM TUBE TP SCH (08:54)
[2021-03-21] MEDS: ESCITALOPRAM OXALATE (10 MG) 10 MG TABLET PO SCH (08:54)
[2021-03-21] MEDS: DOXAZOSIN MESYLATE (4 MG) 4 MG TABLET PO SCH (08:54)
[2021-03-21] MEDS: PANTOPRAZOLE 40 MG TABLET.DR PO SCH (08:57)
[2021-03-21] MEDS: FLUTICASONE/VILANTEROL 1 EACH BLST.W.DEV IH SCH (08:58)
--- NOTE | 2021-03-21 09:22 | NUR ---
ALMOND PASTE MIXER NOTE SPOKE WITH PATIENTS DAUGHTER PATYS , REGARDING A PATIENT UPDATE.
[2021-03-21 12:00] VITALS: BP 115/52
[2021-03-21] MEDS: POLYETHYLENE GLYCOL 3350 17 GM POWD.PACK PO PRN (12:15)
[2021-03-21 15:05] LABS: BASOPHILS % (AUTO) 0.2 % (0.0-2.0); EOSINOPHILS % (AUTO) 0.2 % (0.0-6.0); HEMATOCRIT 23 % (39-51); HEMOGLOBIN 7.5 g/dL (13.5-17.5); LYMPHOCYTES # (AUTO) 0.2 K/uL (0.8-4.8); LYMPHOCYTES % (AUTO) 5.9 % (20.0-44.0); MEAN CORPUSCULAR HGB CONC 32 g/dl (31.0-36.0); MEAN CORPUSCULAR VOLUME 92 fL (80-96); MONOCYTES # (AUTO) 0.1 K/uL (0.1-1.30); MONOCYTES % (AUTO) 2.8 % (2.0-12.0); NEUTROPHILS # (AUTO) 3.2 K/uL (1.8-8.9); NEUTROPHILS % (AUTO) 90.9 % (43.0-81.0); PLATELET COUNT (AUTO) 103 K/uL (150-450); RED BLOOD CELL COUNT(AUTO) 2.52 MIL/uL (4.5-6.0); WHITE BLOOD COUNT (AUTO) 3.6 K/uL (4.3-11.0)
[2021-03-21 15:23] LABS: CALCIUM, SERUM 7.9 mg/dL (8.5-10.1); CREATININE 2.9 mg/dL (0.6-1.3); MAGNESIUM 2.1 mg/dL (1.8-2.4); PHOSPHORUS 5.3 mg/dL (2.5-4.9); POTASSIUM 4.8 mmol/L (3.5-5.1)
[2021-03-21 16:00] VITALS: BP 115/57
[2021-03-21 16:21] LABS: BAND % (MANUAL) 2 % (0.0-5.0); LYMPHOCYTES % (MANUAL) 5 % (16-48); MONOCYTES % (MANUAL) 1 % (0-11.0); NEUTROPHILS % (MANUAL) 92 (42-76)
--- NOTE | 2021-03-21 19:05 | NUR ---
RESISTANCE WELDING MACHINE OPERATOR closing NOTES RECEIVED PATIENT IN BED A/O X 3-4 GIBRALTARIAN SPEAKING. ON HF AT 15 L, 60% FIO2 TOLERATING WELL SATING 90. NO SOB OR ACUTE DISTRESS NOTED. WITH IV ACCESS AT R FA#18G, R HAND # 20G, PATENT AND INTACT, FLUSHES WELL. ALL APPLICABLE ISOLATION PRECAUTIONS IN PLACE. ALL SAFETY MEASURES IN PLACE AT ALL TIMES. HOB ELEVATED. CALL LIGHT WITHIN REACH. BED ON LOWEST POSITION AND LOCKED. WILL ENDORSE TO NIGHT NURSE FOR RODDY.
[2021-03-21 20:00] VITALS: BP 120/52
--- NOTE | 2021-03-21 20:05 | NUR ---
DRAPERY EXAMINER NOTE RECEIVED PATIENT IN BED A/O X 3-4 WITH HIGH FLOW O2 , WITH 15 L, 60% FIO2 TOLERATING WELL SATING 90. NO SOB OR ACUTE DISTRESS NOTED. WITH IV ACCESS AT R FA#18G, R HAND # 20G, PATENT AND INTACT, FLUSHES WELL. ALL APPLICABLE ISOLATION PRECAUTIONS IN PLACE. PATIENTS FAMILY IS AT BEDSIDE, REQUESTING TO SPEAK TO THE PHYSICIANS AND ABRASIVE MIXER. PATIENT IS NOW CLEARED BY ID. ALL SAFETY MEASURES IN PLACE AT ALL TIMES. HOB ELEVATED. CALL LIGHT WITHIN REACH. BED ON LOWEST POSITION AND LOCKED. WILL CONTINUE TO MONITOR PATIENT THROUGHOUT NIGHT.
--- NOTE | 2021-03-21 21:20 | NUR ---
RN NOTE CALLED RT TO COME IN FOR BIPAP. PATIENT CLEARED BY INFECTIOUS DISEASE, AND RECEIVED ORDER FROM ANA. FAMILY AT SITE.
--- NOTE | 2021-03-21 22:20 | NUR ---
RN NOTE PATIENT RESTING IN BED, FAMILY JUST LEFT. PATIENT NOW ON BIPAP.
[2021-03-21] MEDS: QUETIAPINE FUMARATE 25 MG TABLET PO SCH (22:56)
[2021-03-21] MEDS: ATORVASTATIN 10 MG TABLET PO SCH (22:57)
[2021-03-22] VITALS (12 sets, daily range): BP systolic 98–152; BP diastolic 50–62
[2021-03-22] MEDS: BLOOD SUGAR DIAGNOSTIC 1 EACH STRIP IN SCH ×5 (00:17→23:55)
[2021-03-22] MEDS: NITROGLYCERIN 30 GM TUBE TP SCH ×3 (04:33→21:03)
[2021-03-22 06:36] LABS: BASOPHILS % (AUTO) 0.2 % (0.0-2.0); EOSINOPHILS % (AUTO) 0.6 % (0.0-6.0); HEMATOCRIT 22 % (39-51); HEMOGLOBIN 7.1 g/dL (13.5-17.5); LYMPHOCYTES # (AUTO) 0.5 K/uL (0.8-4.8); LYMPHOCYTES % (AUTO) 12.9 % (20.0-44.0); MEAN CORPUSCULAR HGB CONC 32 g/dl (31.0-36.0); MEAN CORPUSCULAR VOLUME 92 fL (80-96); MONOCYTES # (AUTO) 0.3 K/uL (0.1-1.30); MONOCYTES % (AUTO) 8.3 % (2.0-12.0); NEUTROPHILS # (AUTO) 3.2 K/uL (1.8-8.9); PLATELET COUNT (AUTO) 126 K/uL (150-450); RED BLOOD CELL COUNT(AUTO) 2.39 MIL/uL (4.5-6.0); WHITE BLOOD COUNT (AUTO) 4.2 K/uL (4.3-11.0)
[2021-03-22 07:08] LABS: CALCIUM, SERUM 7.8 mg/dL (8.5-10.1); CREATININE 3.1 mg/dL (0.6-1.3); POTASSIUM 4.7 mmol/L (3.5-5.1)
--- NOTE | 2021-03-22 07:20 | NUR ---
PATIENT ASSISTANT OPENING NOTES RECEIVED PATIENT IN BED A/O X 3-4 EMIRATI SPEAKING. ON BIPAP. NO SOB OR ACUTE DISTRESS NOTED. WITH IV ACCESS AT R FA#18G, R HAND # 20G, PATENT AND INTACT, FLUSHES WELL. ALL APPLICABLE ISOLATION PRECAUTIONS IN PLACE. ALL SAFETY MEASURES IN PLACE AT ALL TIMES. HOB ELEVATED. CALL LIGHT WITHIN REACH. BED ON LOWEST POSITION AND LOCKED.
--- NOTE | 2021-03-22 07:31 | NUR ---
RN NOTE NO CHANGES THROUGHOUT THE NIGHT, PATIENT REMAINS ON BIPAP, SATURATING FROM 90-94%. PATIENT KEPT DRY AND CLEAN THROUGHOUT THE NIGHT. WILL ENDORSE PLAN OF CARE TO AM NURSE.
[2021-03-22] MEDS: ASPIRIN EC 81 MG TABLET.DR PO SCH (08:50)
[2021-03-22] MEDS: CHOLECALCIFEROL 1,000 UNIT TABLET (VIT D3) PO SCH (08:50)
[2021-03-22] MEDS: DOXAZOSIN MESYLATE (4 MG) 4 MG TABLET PO SCH (08:51)
[2021-03-22] MEDS: DEXAMETHASONE 4 MG TABLET PO SCH (08:51)
[2021-03-22] MEDS: PANTOPRAZOLE 40 MG TABLET.DR PO SCH (08:51)
[2021-03-22] MEDS: ESCITALOPRAM OXALATE (10 MG) 10 MG TABLET PO SCH (08:51)
[2021-03-22] MEDS: NIFEdipine XL (30MG) 30 MG TAB PO SCH (08:51)
[2021-03-22] MEDS: hydrALAZINE HCL 50 MG TABLET PO SCH ×3 (08:51→17:00)
[2021-03-22] MEDS: FLUTICASONE/VILANTEROL 1 EACH BLST.W.DEV IH SCH (08:53)
[2021-03-22] MEDS: ACETAMINOPHEN 325 MG TABLET PO PRN (11:42)
--- NOTE | 2021-03-22 13:00 | NUR ---
RN NOTE PATIENTS 1300 MEDICATION HYDRALAZINE HELD DUE TO PATIENT CURRENTLY HAVING HD DONE AT BED SIDE
--- NOTE | 2021-03-22 16:43 | NUR ---
RT NOTE ABG TAKEN AND CRITICAL RESULTS GIVEN TO MD. RESCUE BIPAP PLACED ON PT PER MD ORDERS. INSURANCE UNDERWRITER SALES AWARE. ALARMS ARE SET AND AUDIBLE. AMBU BAG AT BEDSIDE. BIPAP PLUGGED INTO RED OUTLET. WILL CONTINUE TO MONITOR Addendum: 03/22/21 at 1645 by SRIRAM BELL RT Amended: Links added.
--- NOTE | 2021-03-22 17:00 | NUR ---
RN NOTE PATIENT TRANSFERRED TO ICU ROOM 251. REPORT GIVEN AT BEDSIDE.
--- NOTE | 2021-03-22 17:10 | NUR ---
ICU/RN PT CAME WITHB SOB , PLACED ON BI-PAP FIO2-100%,SAT O2-99%.V/S STABLE,AFEBRILE.NO PAIN REPORTED AT THIS TIME.PT HAS HD TODAY 500ML OUTPUT.RIGHT FEMORAL HD CATH.PERIFERAL IV H/L. PT USE URINAL .AWAKE ,ALERT-3-4.DOMINICAN SPEAKING.CONTINUE MONITORING.
--- NOTE | 2021-03-22 19:20 | NUR ---
RECEIVED PT ON BED AWAKE ON BIPAP SETTING PER MD FIO2 100% SPO2 94% NO SING OF DISTRESS, NO PAIN COMPLAINT, TELE MONITOR READS SINUS RHYTHM HAVE RFA# 18 AND RHAND # 20 PATENT AND FLUSHED HAVE HD CATH IN RFEM DRESSING INTACT, BED ON LOWEST POSITION AND LOCKED SIDE RAILS UP X2 CALL LIGHT WITHIN REACH WILL CONT TO MONITOR
[2021-03-22] MEDS: QUETIAPINE FUMARATE 25 MG TABLET PO SCH (21:03)
[2021-03-22] MEDS: ATORVASTATIN 10 MG TABLET PO SCH (21:03)
--- NOTE | 2021-03-22 21:05 | NUR ---
ORAL MEDICATION GIVEN HYDRATION GIVEN OFF TO BIPAP FOR 5 MINS AND PUT ON 6L NC BUT PUT BACK ON DUE TO PT START TO DESATURATE WILL CONT TO MONITOR
[2021-03-22] MEDS: INSULIN REGULAR, HUMAN 100 UNIT/ML 3 ML VIAL SQ PRN (23:56)
[2021-03-23] VITALS (31 sets, daily range): BP systolic 89–125; BP diastolic 46–57
[2021-03-23 04:42] LABS: BASOPHILS % (AUTO) 0.2 % (0.0-2.0); EOSINOPHILS % (AUTO) 0.3 % (0.0-6.0); HEMATOCRIT 23 % (39-51); HEMOGLOBIN 7.4 g/dL (13.5-17.5); LYMPHOCYTES # (AUTO) 0.5 K/uL (0.8-4.8); MEAN CORPUSCULAR HGB CONC 33 g/dl (31.0-36.0); MEAN CORPUSCULAR VOLUME 92 fL (80-96); MONOCYTES # (AUTO) 0.2 K/uL (0.1-1.30); NEUTROPHILS # (AUTO) 2.5 K/uL (1.8-8.9); NEUTROPHILS % (AUTO) 76.5 % (43.0-81.0); PLATELET COUNT (AUTO) 114 K/uL (150-450); RED BLOOD CELL COUNT(AUTO) 2.48 MIL/uL (4.5-6.0); WHITE BLOOD COUNT (AUTO) 3.3 K/uL (4.3-11.0)
[2021-03-23 05:06] LABS: CALCIUM, SERUM 8.1 mg/dL (8.5-10.1); CREATININE 2.7 mg/dL (0.6-1.3); MAGNESIUM 2.2 mg/dL (1.8-2.4); PHOSPHORUS 6.3 mg/dL (2.5-4.9); POTASSIUM 4.5 mmol/L (3.5-5.1)
[2021-03-23] MEDS: BLOOD SUGAR DIAGNOSTIC 1 EACH STRIP IN SCH ×4 (05:53→23:37)
[2021-03-23] MEDS: INSULIN REGULAR, HUMAN 100 UNIT/ML 3 ML VIAL SQ PRN ×2 (05:54→23:38)
--- NOTE | 2021-03-23 07:00 | NUR ---
BLOOD SUGAR RECHECK IT STILL 67, APPLE JUICE OFFER TO THE PT, PT DRINK 15ML AND SOME WATER WILL CONT TO MONITOR THE PT
[2021-03-23] MEDS: ASPIRIN EC 81 MG TABLET.DR PO SCH (08:28)
[2021-03-23] MEDS: CHOLECALCIFEROL 1,000 UNIT TABLET (VIT D3) PO SCH (08:28)
[2021-03-23] MEDS: DEXAMETHASONE 4 MG TABLET PO SCH (08:29)
[2021-03-23] MEDS: NIFEdipine XL (30MG) 30 MG TAB PO SCH (08:30)
[2021-03-23] MEDS: PANTOPRAZOLE 40 MG TABLET.DR PO SCH (08:31)
[2021-03-23] MEDS: DOXAZOSIN MESYLATE (4 MG) 4 MG TABLET PO SCH (08:31)
[2021-03-23] MEDS: ESCITALOPRAM OXALATE (10 MG) 10 MG TABLET PO SCH (08:31)
[2021-03-23] MEDS: NITROGLYCERIN 30 GM TUBE TP SCH ×2 (08:59→21:13)
[2021-03-23] MEDS: FLUTICASONE/VILANTEROL 1 EACH BLST.W.DEV IH SCH (08:59)
[2021-03-23] MEDS: hydrALAZINE HCL 50 MG TABLET PO SCH ×3 (08:59→17:37)
[2021-03-23] MEDS: APIXABAN 2.5 MG TABLET PO SCH ×2 (11:44→17:39)
--- NOTE | 2021-03-23 18:42 | NUR ---
RN CLOSING NOTE PT ON BIPAP 25/5 FIO2 70% AND 16 RR. PT SAT 100%. HEMO DIALYSIS OUTPUT 3L. HD ON 03/22 500CC. PT PLACED ON HIGHFLOW @[address] PT BACK ON BIPAP DUE TO PT SOB. PT A/OX4 AND WILL POINT AT OBJECTS. PT HAS PHONE ON BEDSIDE. PT SON [phone]
--- NOTE | 2021-03-23 19:15 | NUR ---
RECEIVED PT ON BED AWAKE ON BIPAP SETTING PER MD FIO2 80% SPO2 94% NO SIgn OF DISTRESS, NO PAIN COMPLAINT, TELE MONITOR READS SINUS RHYTHM HAVE RFA# 18 AND RHAND # 20 PATENT AND FLUSHED HAVE HD CATH IN RFEM DRESSING INTACT, BED ON LOWEST POSITION AND LOCKED SIDE RAILS UP X2 CALL LIGHT WITHIN REACH WILL CONT TO MONITOR
[2021-03-23] MEDS: ATORVASTATIN 10 MG TABLET PO SCH (21:13)
[2021-03-23] MEDS: QUETIAPINE FUMARATE 25 MG TABLET PO SCH (21:13)
--- NOTE | 2021-03-23 23:16 | NUR ---
FIO2 TITRATED TO 60%, MASK CHANGED TO UNDER THE NOSE "C". RN NOTIFIED.
[2021-03-24] VITALS (55 sets, daily range): BP systolic 97–150; BP diastolic 45–61
[2021-03-24 04:31] LABS: BASOPHILS % (AUTO) 0.3 % (0.0-2.0); EOSINOPHILS % (AUTO) 1.6 % (0.0-6.0); HEMATOCRIT 21 % (39-51); LYMPHOCYTES # (AUTO) 0.5 K/uL (0.8-4.8); LYMPHOCYTES % (AUTO) 12.8 % (20.0-44.0); MEAN CORPUSCULAR HGB CONC 33 g/dl (31.0-36.0); MEAN CORPUSCULAR VOLUME 91 fL (80-96); MONOCYTES # (AUTO) 0.3 K/uL (0.1-1.30); MONOCYTES % (AUTO) 7.7 % (2.0-12.0); NEUTROPHILS # (AUTO) 3.1 K/uL (1.8-8.9); NEUTROPHILS % (AUTO) 77.6 % (43.0-81.0); PLATELET COUNT (AUTO) 102 K/uL (150-450); RED BLOOD CELL COUNT(AUTO) 2.31 MIL/uL (4.5-6.0); WHITE BLOOD COUNT (AUTO) 3.9 K/uL (4.3-11.0)
[2021-03-24 04:57] LABS: ALBUMIN 2.5 g/dL (3.4-5.0); BILIRUBIN,DIRECT 0.2 mg/dL (0.0-0.2); BILIRUBIN,TOTAL 0.5 mg/dL (0.2-1.0); CALCIUM, SERUM 7.8 mg/dL (8.5-10.1); CREATININE 2.1 mg/dL (0.6-1.3); MAGNESIUM 1.9 mg/dL (1.8-2.4); PHOSPHORUS 4.1 mg/dL (2.5-4.9); TOTAL PROTEIN, SERUM 5.6 g/dL (6.4-8.2)
[2021-03-24 05:28] LABS: HEMOGLOBIN 6.9 g/dL (13.5-17.5)
[2021-03-24] MEDS: BLOOD SUGAR DIAGNOSTIC 1 EACH STRIP IN SCH ×3 (05:55→17:05)
[2021-03-24] MEDS: INSULIN REGULAR, HUMAN 100 UNIT/ML 3 ML VIAL SQ PRN (05:55)
--- NOTE | 2021-03-24 07:00 | NUR ---
RN NOTES RECEIVED PT ON BED SLEEPING , ON BIPAP , TOLERATING THE CURRENT SETTING WELL, NO SING OF DISTRESS, NO PAIN COMPLAINT, TELE MONITOR, SR HR IN 70'S , RFA# 18 AND R HAND # 20 PATENT AND FLUSHED, HD CATH IN R FEM DRESSING INTACT,AND DRY , BED ON LOWEST POSITION AND LOCKED SIDE RAILS UP X3 CALL LIGHT WITHIN REACH WILL CONT TO MONITOR
[2021-03-24] MEDS: DOXAZOSIN MESYLATE (4 MG) 4 MG TABLET PO SCH (08:14)
[2021-03-24] MEDS: CHOLECALCIFEROL 1,000 UNIT TABLET (VIT D3) PO SCH (08:15)
[2021-03-24] MEDS: PANTOPRAZOLE 40 MG TABLET.DR PO SCH (08:15)
[2021-03-24] MEDS: DEXAMETHASONE 4 MG TABLET PO SCH (08:15)
[2021-03-24] MEDS: NIFEdipine XL (30MG) 30 MG TAB PO SCH (08:15)
[2021-03-24] MEDS: hydrALAZINE HCL 50 MG TABLET PO SCH ×3 (08:16→17:05)
[2021-03-24] MEDS: ESCITALOPRAM OXALATE (10 MG) 10 MG TABLET PO SCH (08:17)
[2021-03-24] MEDS: FLUTICASONE/VILANTEROL 1 EACH BLST.W.DEV IH SCH (08:20)
[2021-03-24] MEDS: NITROGLYCERIN 30 GM TUBE TP SCH ×2 (08:21→22:24)
[2021-03-24] MEDS ORDERED: PHYTONADIONE INJ 10 MG/1 ML AMPUL SQ ONE (08:30)
[2021-03-24 10:07] LABS: ABG BASE EXCESS -1.6 mmol/L; ABG OXYGEN SATURATION 83.8 % (92.0-98.5); ABG PCO2 59.2 mmHg (35.0-45.0); ABG PH 7.257 (7.350-7.450); ABG PO2 50.5 mmHg (75.0-100.0); AaDO2 312.2 mmHg; COHb 0.2 % (0.5-1.5); MetHb 0.3 % (0.0-1.5); O2Hb 83.4 % (94.0-97.0); SITE, ABG Right Radial
[2021-03-24 10:11] LABS: ABG BASE EXCESS -2.7 mmol/L; ABG OXYGEN SATURATION 90.5 % (92.0-98.5); ABG PH 7.225 (7.350-7.450); ABG PO2 63.9 mmHg (75.0-100.0); AaDO2 477.8 mmHg; COHb 0.4 % (0.5-1.5); MetHb 0.2 % (0.0-1.5); SITE, ABG Right Radial
[2021-03-24 10:56] LABS: ABG BASE EXCESS -1.6 mmol/L; ABG OXYGEN SATURATION 91.7 % (92.0-98.5); ABG PCO2 68.2 mmHg (35.0-45.0); ABG PO2 65.7 mmHg (75.0-100.0); AaDO2 433.1 mmHg; COHb 0.3 % (0.5-1.5); MetHb 0.4 % (0.0-1.5); O2Hb 91.1 % (94.0-97.0); SITE, ABG Right Radial
--- NOTE | 2021-03-24 16:32 | NUR ---
RN NOTES PT RECEIVING HD AND BLOOD TRANSFUSION AT THIS TIME, NO DISTRESS NOTED , CONTINUE TO MONITOR .
--- NOTE | 2021-03-24 17:06 | NUR ---
RN NOTES HD DONE, PT RECEIVED TWO UNITS OF PRBC ON HD , TOLERATED WELL, NO DISTRESS NOTED .
--- NOTE | 2021-03-24 18:17 | NUR ---
RN NOTES PT ON BIPAP , O2 SAT WNL, PT DESATURATE TO 70'S WHEN PT IS OFF BIPAP, ON TELE SR HR IN 70'S , PT RECEIVED HD AND TWO UNITS OF PRBC'S ON THIS SHIFT, NO DISTRESS NOTED AT THIS TIME. SR UP X3, CALL LIGHT WITHIN EASY REACH, BED LOCKED AND IN LOWEST POSITION, WILL ENDORSE TO SENIOR PARALEGAL NURSE FOR CONTINUITY OF CARE .
--- NOTE | 2021-03-24 21:13 | NUR ---
PRECISION CROP MANAGER PTS SON, OCTAVIANO AT BEDSIDE NOTED ADJUSTING BIPAP MASK
--- NOTE | 2021-03-24 22:00 | NUR ---
RETAIL ASSOCIATE PTS SON NOTIFIED NURSING THAT HE WAS GOING TO ADJUST BIPAP HE WAS ASKED NOT TO AND WAS TOLD RT WOULD BE CALLED TO DO ADJUSTMENTS. THEN SON ASKED FOR ABG RESULTS AND WAS TOLD NURSES CAN NOT GIVE OUT RESULTS (THERE IS NO RELEASE OF INFORMATION ON FILE) SON BECAME ANGRY SPEAKING IN A LOUD VOICE THAT THIS WAS A VIOLATION OF T[place] AND HE WAS ADVOCATING FOR PT AND HE SHOULD BE GIVEN RESULTS. SON THEN REQUESTED NURSE MACHINE PAN GREASER COME TO THE UNIT. I CLARIFIED WITH HIM WHAT HE WANTED TO SPEAK TO HER ABOUT AND HE SAID YES HE WAS UPSET RESULTS WERE NOT BEING GIVEN TO HIM. SAID CNO NEEDS TO BE CALLED WELL AND CONTINUED YELLING THAT THIS IS A [place] [address] REGULATION VIOLATION AND HE WOULD BE REPORTING US TO [facility]. HE ASKED FOR AN ABG TO BE DONE FOR HIS FATHER THERE WAS TOO MUCH PRESSURE FROM THE BIPAP. THERE WAS NO MEDICAL JUSTIFICATION FOR AN ABG AT THIS TIME. SON S/W MACHINE PAN GREASER REQUESTED. SON YELLING THAT NURSE HAD NO COMPASSION. NURSE REMAINED SITTING OUTSIDE PTS ROOM. SON ALSO YELLED AT ANOTHER STAFF MEMBER. NURSE THEN REMOVED HERSELF FROM THE IMMEDIATE AREA OF THE PTS SON. INFORMED MACHINE PAN GREASER AND CHARGE THAT SON HAD ADJUSTED BIPAP AND SON YELLED YOU'RE A LIAR TO PRIMARY NURSE. AFTER SON HAD GAINED THE ATTENTION OF CHARGE NURSE AND MACHINE PAN GREASER HE STARTED APOLOGIZING TO PRIMARY NURSE.
[2021-03-24] MEDS: QUETIAPINE FUMARATE 25 MG TABLET PO SCH (22:23)
[2021-03-24] MEDS: ATORVASTATIN 10 MG TABLET PO SCH (22:23)
--- NOTE | 2021-03-24 22:30 | NUR ---
COMMISSIONS ANALYST RENDERED ORAL CARE; PT NOTED BLEEDING FROM THE MOUTH.
[2021-03-25] VITALS (35 sets, daily range): BP systolic 103–144; BP diastolic 17–89
[2021-03-25] MEDS: BLOOD SUGAR DIAGNOSTIC 1 EACH STRIP IN SCH ×5 (00:01→23:05)
[2021-03-25] MEDS: ACETAMINOPHEN 325 MG TABLET PO PRN (00:20)
[2021-03-25 04:34] LABS: BASOPHILS % (AUTO) 0.2 % (0.0-2.0); EOSINOPHILS % (AUTO) 0.9 % (0.0-6.0); HEMATOCRIT 26 % (39-51); HEMOGLOBIN 8.9 g/dL (13.5-17.5); LYMPHOCYTES # (AUTO) 0.4 K/uL (0.8-4.8); LYMPHOCYTES % (AUTO) 10.9 % (20.0-44.0); MEAN CORPUSCULAR HGB CONC 34 g/dl (31.0-36.0); MEAN CORPUSCULAR VOLUME 90 fL (80-96); MONOCYTES # (AUTO) 0.3 K/uL (0.1-1.30); PLATELET COUNT (AUTO) 95 K/uL (150-450); RED BLOOD CELL COUNT(AUTO) 2.91 MIL/uL (4.5-6.0); WHITE BLOOD COUNT (AUTO) 3.7 K/uL (4.3-11.0)
[2021-03-25 04:39] LABS: ALBUMIN 2.6 g/dL (3.4-5.0); BILIRUBIN,DIRECT 0.3 mg/dL (0.0-0.2); BILIRUBIN,TOTAL 0.8 mg/dL (0.2-1.0); CALCIUM, SERUM 7.8 mg/dL (8.5-10.1); PHOSPHORUS 3.9 mg/dL (2.5-4.9); POTASSIUM 4.2 mmol/L (3.5-5.1)
--- NOTE | 2021-03-25 06:38 | NUR ---
SECURITY AGENT PT TOLERATED BIPAP ALL NIGHT; DID NOT TRY TO REMOVE IT OR COMPLAIN
[2021-03-25] MEDS: hydrALAZINE HCL 50 MG TABLET PO SCH ×3 (08:14→16:57)
[2021-03-25] MEDS: ESCITALOPRAM OXALATE (10 MG) 10 MG TABLET PO SCH (08:14)
[2021-03-25] MEDS: DEXAMETHASONE 4 MG TABLET PO SCH (08:14)
[2021-03-25] MEDS: CHOLECALCIFEROL 1,000 UNIT TABLET (VIT D3) PO SCH (08:14)
[2021-03-25] MEDS: PANTOPRAZOLE 40 MG TABLET.DR PO SCH (08:14)
[2021-03-25] MEDS: NIFEdipine XL (30MG) 30 MG TAB PO SCH (08:15)
[2021-03-25] MEDS: DOXAZOSIN MESYLATE (4 MG) 4 MG TABLET PO SCH (08:15)
[2021-03-25] MEDS: NITROGLYCERIN 30 GM TUBE TP SCH ×2 (08:16→21:24)
[2021-03-25] MEDS: FLUTICASONE/VILANTEROL 1 EACH BLST.W.DEV IH SCH (08:17)
[2021-03-25 10:13] LABS: LYMPHOCYTES % (MANUAL) 15 % (16-48); NEUTROPHILS % (MANUAL) 78 (42-76)
[2021-03-25 10:14] LABS: EOSINOPHILS % (MANUAL) 1 % (0-4); MONOCYTES % (MANUAL) 6 % (0-11.0)
--- NOTE | 2021-03-25 10:30 | NUR ---
RN NOTES CALL MADE TO PT'S SON ( TISH ) , HE WAS UPDATED REGARDING PT'S HEALTH STATUS .
--- NOTE | 2021-03-25 14:00 | NUR ---
RN NOTES PT SITTING AT THE EDGE OF THE BED, TOLERATING THE BIPAP SETTING WELL, NO DISTRESS NOTED .
[2021-03-25] MEDS: WARFARIN SODIUM 2.5 MG TABLET PO SCH (17:01)
[2021-03-25] MEDS: INSULIN REGULAR, HUMAN 100 UNIT/ML 3 ML VIAL SQ PRN ×2 (17:08→23:24)
--- NOTE | 2021-03-25 18:00 | NUR ---
RN NOTES PT ON BIPAP , O2 SAT WNL, PT DESATURATE TO 80'S WHEN PT IS OFF BIPAP, ON TELE SR HR IN 70' , SR UP X3, CALL LIGHT WITHIN EASY REACH, BED LOCKED AND IN LOWEST POSITION, WILL ENDORSE TO OPTICS MANUFACTURING TECHNICIAN NURSE FOR CONTINUITY OF CARE .
--- NOTE | 2021-03-25 19:15 | NUR ---
PLASTERER MAINTENANCE PER REPORT PT DECLINED DINNER; OFFERED TO ASSIST WITH DINNER AT THIS TIME. PT DECLINED.
--- NOTE | 2021-03-25 20:00 | NUR ---
MEN'S BASKETBALL COACH PT CONTINUES TO DECLINE TO EAT
[2021-03-25] MEDS: QUETIAPINE FUMARATE 25 MG TABLET PO SCH (21:24)
[2021-03-25] MEDS: ATORVASTATIN 10 MG TABLET PO SCH (21:24)
[2021-03-26] VITALS (31 sets, daily range): BP systolic 91–135; BP diastolic 40–78
--- NOTE | 2021-03-26 04:07 | NUR ---
TILTING HEAD BAND SAWYER NOTED CHANGE IN PT BEHAVIOR; PT BECAME AGGRESSIVE AND ATTEMPTING TO GET OUT OF BED. BLOOD GLUCOSE 63 BIPAP REMOVED AND PLACED ON NASAL CANNULA TO GIVE PT ORANGE JUICE. PT DID NOT TOLERATE NASAL CANNULA AND DESATURATED. PLACED BACK ON BIPAP. BLOOD GLUCOSE RECHECKED 69. LAB AT BEDSIDE FOR DRAW.
[2021-03-26 05:13] LABS: CALCIUM, SERUM 8.1 mg/dL (8.5-10.1); CREATININE 2.4 mg/dL (0.6-1.3); POTASSIUM 4.2 mmol/L (3.5-5.1)
[2021-03-26 05:24] LABS: BASOPHILS % (AUTO) 0.1 % (0.0-2.0); EOSINOPHILS % (AUTO) 1.2 % (0.0-6.0); HEMATOCRIT 26 % (39-51); HEMOGLOBIN 8.7 g/dL (13.5-17.5); LYMPHOCYTES # (AUTO) 0.4 K/uL (0.8-4.8); MEAN CORPUSCULAR HGB CONC 33 g/dl (31.0-36.0); MEAN CORPUSCULAR VOLUME 91 fL (80-96); MONOCYTES # (AUTO) 0.3 K/uL (0.1-1.30); MONOCYTES % (AUTO) 6.9 % (2.0-12.0); NEUTROPHILS # (AUTO) 2.9 K/uL (1.8-8.9); NEUTROPHILS % (AUTO) 79.8 % (43.0-81.0); PLATELET COUNT (AUTO) 97 K/uL (150-450); RED BLOOD CELL COUNT(AUTO) 2.87 MIL/uL (4.5-6.0); WHITE BLOOD COUNT (AUTO) 3.7 K/uL (4.3-11.0)
[2021-03-26] MEDS: BLOOD SUGAR DIAGNOSTIC 1 EACH STRIP IN SCH ×4 (05:27→22:15)
[2021-03-26 06:59] LABS: EOSINOPHILS % (MANUAL) 2 % (0-4); LYMPHOCYTES % (MANUAL) 14 % (16-48); MONOCYTES % (MANUAL) 4 % (0-11.0); NEUTROPHILS % (MANUAL) 80 (42-76)
--- NOTE | 2021-03-26 07:30 | NUR ---
BANANA EXPERT OPENING NOTES Received patient on bipap and restless in bed. Patient is alert and oriented. Breathing labored. HOB kept elevated. Patient teaching done regarding safety and fall precautions. Will continue to monitor. Call light with in reach..
[2021-03-26] MEDS: FLUTICASONE/VILANTEROL 1 EACH BLST.W.DEV IH SCH (08:28)
[2021-03-26] MEDS: NIFEdipine XL (30MG) 30 MG TAB PO SCH (09:00)
[2021-03-26] MEDS: hydrALAZINE HCL 50 MG TABLET PO SCH ×3 (09:00→16:10)
[2021-03-26] MEDS: ESCITALOPRAM OXALATE (10 MG) 10 MG TABLET PO SCH (09:00)
[2021-03-26] MEDS: CHOLECALCIFEROL 1,000 UNIT TABLET (VIT D3) PO SCH (09:00)
[2021-03-26] MEDS: DOXAZOSIN MESYLATE (4 MG) 4 MG TABLET PO SCH (09:00)
[2021-03-26] MEDS: NITROGLYCERIN 30 GM TUBE TP SCH ×3 (09:00→21:17)
--- NOTE | 2021-03-26 09:00 | NUR ---
MD espinoza made aware that patient unable to take PO meds due to desaturating when BIPAP is removed.
[2021-03-26] MEDS: CITRIC ACID/SODIUM CITRATE (BICITRA)15 ML UDC PO SCH ×4 (10:30→21:00)
[2021-03-26] MEDS: DEXAMETHASONE SOD PHOSPHATE 10 MG/ML VIAL IJ SCH (11:06)
[2021-03-26] MEDS: PANTOPRAZOLE 40 MG VIAL IV SCH (11:06)
[2021-03-26] MEDS: INSULIN REGULAR, HUMAN 100 UNIT/ML 3 ML VIAL SQ PRN ×3 (12:25→22:18)
--- NOTE | 2021-03-26 15:00 | NUR ---
Patient had 1400 cc fluids removed during HD.
--- NOTE | 2021-03-26 16:24 | NUR ---
Patient currently asleep in bed and comfortable with 02 of 94% on bipap.
[2021-03-26] MEDS ORDERED: WARFARIN SODIUM 5 MG TABLET PO ONE (17:00)
[2021-03-26] MEDS: WARFARIN SODIUM 2.5 MG TABLET PO SCH (17:00)
--- NOTE | 2021-03-26 19:11 | NUR ---
RECYCLING WORKER CLOSING NOTES Received patient on highflo 60 liters and 60% fi02 saturating 92%. and sitting at the edge of bed and calm. Patient is alert and oriented. Breathing even and unlabored. Patient given coumadin 5 mg x1 and coumadin 2 mg order held for today per md Degroot orders. Patient teaching done regarding safety and fall precautions. Endorsed to next shift for RODDY. Call light with in reach.
[2021-03-26] MEDS ORDERED: DEXTROSE 50%-WATER 50 ML DISP.SYRIN IV PRN (19:30)
--- NOTE | 2021-03-26 19:52 | NUR ---
RT Patient received on HFNC 60LPM 60%. HR 76 SPO2 92%. ABG done. Placed back on BIPAP per MD order.
[2021-03-26 20:39] LABS: ABG BASE EXCESS -0.9 mmol/L; ABG OXYGEN SATURATION 92.2 % (92.0-98.5); ABG PCO2 68.6 mmHg (35.0-45.0); ABG PH 7.223 (7.350-7.450); ABG PO2 68.8 mmHg (75.0-100.0); AaDO2 283.5 mmHg; COHb 0.4 % (0.5-1.5); MetHb 0.2 % (0.0-1.5); O2Hb 91.6 % (94.0-97.0); SITE, ABG Right Radial; VENT MODE, BG 25/5 R 16 60%
[2021-03-26 20:40] LABS: ABG OXYGEN SATURATION 91.5 % (92.0-98.5); ABG PCO2 70.3 mmHg (35.0-45.0); ABG PH 7.199 (7.350-7.450); ABG PO2 64.8 mmHg (75.0-100.0); AaDO2 212.6 mmHg; COHb 0.4 % (0.5-1.5); MetHb 0.3 % (0.0-1.5); O2Hb 90.9 % (94.0-97.0); SITE, ABG Right Radial; VENT MODE, BG st 20/5 r16 50%
[2021-03-26 20:42] LABS: ABG BASE EXCESS -4.6 mmol/L; ABG PCO2 72.2 mmHg (35.0-45.0); ABG PH 7.153 (7.350-7.450); AaDO2 288.4 mmHg; COHb 0.9 % (0.5-1.5); MetHb 0.3 % (0.0-1.5); O2Hb 88.9 % (94.0-97.0); SITE, ABG Left Radial; VENT MODE, BG HFNC 60L 60%
--- NOTE | 2021-03-26 21:00 | NUR ---
PIGS FEET FINISHER RCD PT ON HFNC WITH REPORT THAT PT HAD BEEN PLACED ON HFNC AT 1800 WITH ABG TO BE DONE IN ONE HOUR; ABG REULTS RELAYED TO DR LONDON WITH ORDERS TO PLACE PT BACK ON BIPAP.
[2021-03-26] MEDS: ATORVASTATIN 10 MG TABLET PO SCH (21:05)
[2021-03-26] MEDS: QUETIAPINE FUMARATE 25 MG TABLET PO SCH (21:05)
[2021-03-27] VITALS (24 sets, daily range): BP systolic 107–167; BP diastolic 55–90
--- NOTE | 2021-03-27 07:47 | NUR ---
RN NOTE PATIENT RECEIVED IN BED, RESTING, CALM. PATIENT ON CPAP WITH NO SIGNS OF LABORED BREATHING AT THIS TIME SATURATING 97%. RIGHT FA 18 AND RIGHT HAND 20G PIV IN PLACE. BED LOCKED AND IN LOWEST POSITION, CALL LIGHT WITHIN REACH, 2 SIDE RAILS UP. WILL CONTINUE TO MONITOR.
[2021-03-27] MEDS: BLOOD SUGAR DIAGNOSTIC 1 EACH STRIP IN SCH ×4 (07:57→23:03)
[2021-03-27] MEDS: DEXAMETHASONE SOD PHOSPHATE 10 MG/ML VIAL IJ SCH (08:24)
[2021-03-27] MEDS: hydrALAZINE HCL 50 MG TABLET PO SCH ×3 (08:28→17:26)
[2021-03-27] MEDS: FLUTICASONE/VILANTEROL 1 EACH BLST.W.DEV IH SCH (08:28)
[2021-03-27] MEDS: ESCITALOPRAM OXALATE (10 MG) 10 MG TABLET PO SCH (08:29)
[2021-03-27] MEDS: NITROGLYCERIN 30 GM TUBE TP SCH ×2 (08:29→22:43)
[2021-03-27] MEDS: NIFEdipine XL (30MG) 30 MG TAB PO SCH (08:29)
[2021-03-27] MEDS: DOXAZOSIN MESYLATE (4 MG) 4 MG TABLET PO SCH (08:29)
[2021-03-27] MEDS: CITRIC ACID/SODIUM CITRATE (BICITRA)15 ML UDC PO SCH ×4 (08:29→22:37)
[2021-03-27] MEDS: CHOLECALCIFEROL 1,000 UNIT TABLET (VIT D3) PO SCH (08:29)
--- NOTE | 2021-03-27 08:30 | NUR ---
RN NOTE PATIENT UNABLE TO EAT, DRINK OR TAKE ANY MEDICATION PO AT THIS TIME. PATIENT WILL DESATURATE QUICKLY WITHOUT BIPAP, UNABLE TO REMOVE IT AT THIS TIME. DR. KNOX AWARE. WILL CONTINUE TO MONITOR.
[2021-03-27] MEDS: PANTOPRAZOLE 40 MG VIAL IV SCH (10:10)
[2021-03-27] MEDS ORDERED: WARFARIN SODIUM 5 MG TABLET PO ONE (17:00)
[2021-03-27] MEDS ORDERED: WARFARIN SODIUM 5 MG TABLET PO SCH (17:00)
--- NOTE | 2021-03-27 18:58 | NUR ---
RN NOTE PATIENT REMAINS IN BED, RESTING, CALM. PATIENT ON CPAP WITH NO SIGNS OF LABORED BREATHING AT THIS TIME SATURATING 97%. RIGHT FA 18 AND RIGHT HAND 20G PIV IN PLACE. BED LOCKED AND IN LOWEST POSITION, CALL LIGHT WITHIN REACH, 2 SIDE RAILS UP. ALL NEEDS ATTENDED DURING SHIFT. WILL ENDORSE TO COURT RECORDER NURSE.
--- NOTE | 2021-03-27 19:12 | NUR ---
RN NOTE PT RECEIVED IN BED. CURRENTLY ON BIPAP. TOLERATING SETTINGS WELL. PT IS ALERT AND ORIENTED X2-3. ON FINANCIAL CENTER MANAGER SHOWING NSR. ON RENAL DIET. IV ACCESS NOTED ON RIGHT FA #18, RIGHT HAND #20 AND FEMORAL CATH. ALL SAFETY MEASURES IMPLEMENTED. CALL LIGHT WITHIN REACH. BED ALARM ON. BED LOCKED AND IN LOWEST POSITION. WILL CONTINUE TO MONITOR.
--- NOTE | 2021-03-27 19:52 | NUR ---
RN NOTE SPOKE WITH DR. CLINE REGARDING PT G-TUBE FEEDING. INFORMED DR. CLINE THAT WE DO NOT HAVE PEPTAMEN, AND DR. CLINE ORDERED NEPRO AT 40 CC/HR CONTINUOUS AND AN ORDER FOR DIETARY CONSULT. ORDER NOTED AND CARRIED OUT. Addendum: 03/27/21 at 1954 by MAGAN BUCIO RN WRONG PATIENT. DISREGARD NOTE.
[2021-03-27] MEDS: ATORVASTATIN 10 MG TABLET PO SCH (22:38)
[2021-03-27] MEDS: QUETIAPINE FUMARATE 25 MG TABLET PO SCH (22:38)
[2021-03-28] VITALS (25 sets, daily range): BP systolic 101–149; BP diastolic 55–72
[2021-03-28] MEDS: ACETAMINOPHEN 325 MG TABLET PO PRN (01:57)
[2021-03-28 04:46] LABS: BASOPHILS % (AUTO) 0.1 % (0.0-2.0); EOSINOPHILS % (AUTO) 2.4 % (0.0-6.0); HEMATOCRIT 25 % (39-51); HEMOGLOBIN 8.2 g/dL (13.5-17.5); LYMPHOCYTES # (AUTO) 0.6 K/uL (0.8-4.8); LYMPHOCYTES % (AUTO) 16.3 % (20.0-44.0); MEAN CORPUSCULAR HGB CONC 33 g/dl (31.0-36.0); MEAN CORPUSCULAR VOLUME 91 fL (80-96); MONOCYTES # (AUTO) 0.3 K/uL (0.1-1.30); MONOCYTES % (AUTO) 8.6 % (2.0-12.0); NEUTROPHILS # (AUTO) 2.7 K/uL (1.8-8.9); NEUTROPHILS % (AUTO) 72.6 % (43.0-81.0); PLATELET COUNT (AUTO) 97 K/uL (150-450); RED BLOOD CELL COUNT(AUTO) 2.68 MIL/uL (4.5-6.0); WHITE BLOOD COUNT (AUTO) 3.7 K/uL (4.3-11.0)
[2021-03-28 06:24] LABS: CALCIUM, SERUM 8.2 mg/dL (8.5-10.1); CREATININE 2.5 mg/dL (0.6-1.3); POTASSIUM 4.3 mmol/L (3.5-5.1)
--- NOTE | 2021-03-28 06:46 | NUR ---
RN NOTE NO CHANGES IN PT CONDITION DURING SHIFT. CURRENTLY ON BIPAP. TOLERATING SETTINGS WELL. PT IS ALERT AND ORIENTED X2-3. 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 ON RENAL DIET. IV ACCESS NOTED ON RIGHT FA #18, RIGHT HAND #20 AND FEMORAL CATH. ALL DUE MEDS GIVEN ORDERED. PT KEPT CLEAN AND COMFORTABLE. ALL SAFETY MEASURES IMPLEMENTED. CALL LIGHT WITHIN REACH. BED ALARM ON. BED LOCKED AND IN LOWEST POSITION. WILL ENDORSE TO MORNING SHIFT RN FOR RODDY.
--- NOTE | 2021-03-28 07:30 | NUR ---
RN NOTE PATIENT RECEIVED IN BED, RESTING. PATIENT ON BIPAP WITH NO SIGNS OF LABORED BREATHING AND SATURATING 95%. RIGHT FA 18 SL AND RIGHT HAND 20G SL IN PLACE. NO SIGNS OF DISTRESS NOTED AT THIS TIME. BED LOCKED AND IN LOWEST POSITION, CALL LIGHT WITHIN REACH, 2 SIDE RAILS UP. WILL CONTINUE TO MONITOR.
--- NOTE | 2021-03-28 07:43 | NUR ---
WOUND CARE CONSULT: PT PRESENTS WITH INTACT DEEP TISSUE INJURY TO NASAL BRIDGE. PT ON BIPAP CONTINUOUSLY. PER RN, PT PREVIOUSLY WAS REMOVING HIS MASK. PT ALSO NOTED TO HAVE DEEP TISSUE INJURIES TO SACRUM AND BILATERAL BUTTOCKS WHICH ARE IN EVOLUTION. RECOMMENDATIONS MADE FOR SKIN PROTECTION AND WOUND CARE. DISCUSSED WITH NURSING STAFF. PT DEMONSTRATES ABILITY TO ASSIST WITH TURNING AND REPOSITIONING IN BED. PT NOTED TO HAVE MULTIPLE CO-MORBIDITIES INCLUDING ACUTE HYPOXIC RESPIRATORY FAILURE SECONDARY TO COVID19 PNEUMONIA, STATUS POST RESPIRATORY ARREST (PREVIOUSLY INTUBATED), SEPTIC SHOCK SECONDARY TO COVID PNEUMONIA, CORONARY ARTERY DISEASE WITH HISTORY OF CABG AND AORTIC VALVE REPLACEMENT, DIABETES, MALNUTRITION, OBESITY AND ACUTE KIDNEY INJURY. DUE TO MULTIPLE CO-MORBIDITIES, FURTHER SKIN BREAKDOWN MAY BE UNAVOIDABLE. ALL SKIN PROTECTION MEASURES IN PLACE AND DISCUSSED WITH NURSING STAFF. IN AGREEMENT WITH PLAN OF CARE. Addendum: 03/28/21 at 0748 by NANCY MEJIA WNDNU Amended: Links added.
[2021-03-28] MEDS ORDERED: Z GUARD REMEDY 4 OZ OINT TP PRN (08:00)
[2021-03-28] MEDS: BLOOD SUGAR DIAGNOSTIC 1 EACH STRIP IN SCH ×4 (08:17→22:24)
[2021-03-28] MEDS: CITRIC ACID/SODIUM CITRATE (BICITRA)15 ML UDC PO SCH ×4 (08:27→20:55)
[2021-03-28] MEDS: DEXAMETHASONE SOD PHOSPHATE 10 MG/ML VIAL IJ SCH (08:27)
[2021-03-28] MEDS: CHOLECALCIFEROL 1,000 UNIT TABLET (VIT D3) PO SCH (08:28)
[2021-03-28] MEDS: ESCITALOPRAM OXALATE (10 MG) 10 MG TABLET PO SCH (08:28)
[2021-03-28] MEDS: NIFEdipine XL (30MG) 30 MG TAB PO SCH (08:28)
[2021-03-28] MEDS: hydrALAZINE HCL 50 MG TABLET PO SCH ×3 (08:28→16:51)
[2021-03-28] MEDS: DOXAZOSIN MESYLATE (4 MG) 4 MG TABLET PO SCH (08:29)
[2021-03-28] MEDS: FLUTICASONE/VILANTEROL 1 EACH BLST.W.DEV IH SCH (09:00)
[2021-03-28] MEDS: NITROGLYCERIN 30 GM TUBE TP SCH ×2 (09:00→20:55)
--- NOTE | 2021-03-28 09:15 | NUR ---
RN NOTE PATIENT'S BLOOD SUGAR OF 58 BEFORE BREAKFAST. BREAKFAST GIVEN, SUGAR INCREASED TO 79. WILL CONTINUE TO MONITOR.
[2021-03-28] MEDS: PANTOPRAZOLE 40 MG VIAL IV SCH (10:47)
--- NOTE | 2021-03-28 11:28 | NUR ---
RN NOTE PATIENT PLACED ON BIPAP, STABLE AT THIS TIME. PATIENT SATURATING 95% ON MONITOR. WILL CONTINUE TO MONITOR.
--- NOTE | 2021-03-28 11:29 | NUR ---
RN NOTE PATIENT RESTLESS. ABG DRAW BY RT. ORDERED TO PLACE PT BACK ON BIPAP PER DR. LONDON. WILL CONTINUE TO MONITOR.
--- NOTE | 2021-03-28 12:11 | NUR ---
RN NOTE PATIENT SCHEDULED FOR DIALYSIS THIS PM. BP MEDS HELD AT THIS TIME.
--- NOTE | 2021-03-28 12:16 | NUR ---
RN NOTE PATIENT UNABLE TO REMOVE BIPAP TO TAKE PO MEDS AT THIS TIME DUE TO CURRENT OXYGEN SATURATION. WILL CONTINUE TO MONITOR.
[2021-03-28] MEDS ORDERED: CITRIC ACID/SODIUM CITRATE (BICITRA)15 ML UDC PO SCH (13:30)
[2021-03-28] MEDS ORDERED: HEPARIN SODIUM, PORCINE 5000 UNITS/1 ML VIAL IV ONE (14:00)
[2021-03-28] MEDS: HEPARIN INFUSION/D5W 500 ML IV PRN ×2 (14:10→23:34)
--- NOTE | 2021-03-28 14:45 | NUR ---
RN NOTE SUGAR OF 136 AT LUNCH TIME. PATIENT NOT EATING DUE TO NEED FOR BIPAP AT THIS TIME. PER SONA KAY TO HOLD INSULIN.
--- NOTE | 2021-03-28 15:02 | NUR ---
RN NOTE HD ENDED, 2L REMOVED. PATIENT TOLERATED WELL, VITAL SIGNS STABLE. WILL CONTINUE TO MONITOR.
[2021-03-28 15:13] LABS: ABG BASE EXCESS -1.7 mmol/L; ABG OXYGEN SATURATION 95.3 % (92.0-98.5); ABG PCO2 76.3 mmHg (35.0-45.0); ABG PH 7.177 (7.350-7.450); ABG PO2 88.6 mmHg (75.0-100.0); AaDO2 474.9 mmHg; COHb 0.2 % (0.5-1.5); MetHb 0.5 % (0.0-1.5); O2Hb 94.6 % (94.0-97.0); SITE, ABG Right Radial; VENT MODE, BG HIGH FLOW
[2021-03-28 15:13] LABS: ABG BASE EXCESS 1.1 mmol/L; ABG OXYGEN SATURATION 95.7 % (92.0-98.5); ABG PH 7.286 (7.350-7.450); ABG PO2 81.4 mmHg (75.0-100.0); AaDO2 133.7 mmHg; COHb 0.7 % (0.5-1.5); MetHb 0.3 % (0.0-1.5); O2Hb 94.7 % (94.0-97.0); SITE, ABG Right Radial
[2021-03-28] MEDS ORDERED: WARFARIN SODIUM 5 MG TABLET PO ONE (17:00)
[2021-03-28] MEDS ORDERED: WARFARIN SODIUM 2.5 MG TABLET PO SCH (17:00)
[2021-03-28] MEDS: ENSURE ENLIVE CHOC 237 ML CAN PO SCH (17:30)
--- NOTE | 2021-03-28 18:37 | NUR ---
RN NOTE PATIENT REMAINS IN BED, AWAKE, A&OX3. PATIENT ON BIPAP WITH NO SIGNS OF LABORED BREATHING AND SATURATING 95%. RIGHT FA 18 SL AND RIGHT HAND 20G SL IN PLACE. NO SIGNS OF DISTRESS NOTED AT THIS TIME. ALL NEEDS ATTENDED DURING SHIFT. BED LOCKED AND IN LOWEST POSITION, CALL LIGHT WITHIN REACH, 2 SIDE RAILS UP. WILL ENDORSE TO BAND BUILDER NURSE.
--- NOTE | 2021-03-28 19:00 | NUR ---
NUCLEAR LICENSING ENGINEER NOTE RECEIVED PATIENT IN BED ALERT ORIETNED X4 VERBALLY RESPONSIVE ON BIPAP O2:96% IV SITE IS ON RIGHT FOREARM AND RIGHT HAND INTACT PATENT ON HEPARIN DRIP 1600 UNIT/HR,HEAD OF THE BED ELEVATED,SAFETY MEASURE IMPLEMENT,BED IN LOW POSITION AND LOCKED,CALL LIGHT WITHIN REACH, CONTINUE TO MONITOR.
--- NOTE | 2021-03-28 21:30 | NUR ---
RN NOTE RECEIVED CALL FROM LAB PTT IS >170 [address] HE[address]IP NOTIFIED DR JOHNATHAN PAREDES,HE ORDERED HOLD HEPARIN 2HOURS THAN START ON PROTOCOL NOTED AND CARRIED OUT.
[2021-03-28] MEDS: ATORVASTATIN 10 MG TABLET PO SCH (21:52)
[2021-03-28] MEDS: QUETIAPINE FUMARATE 25 MG TABLET PO SCH (21:52)
--- NOTE | 2021-03-28 23:30 | NUR ---
RN NOTE STARTED HEPARIN DRIP 1350 UNIT/HR,NEXT PTT LEVEL AT 0600 AM CONTINUE TO MONITOR.
[2021-03-29] VITALS (24 sets, daily range): BP systolic 112–163; BP diastolic 48–76
[2021-03-29] MEDS: ACETAMINOPHEN 325 MG TABLET PO PRN (03:56)
[2021-03-29 06:32] LABS: BASOPHILS % (AUTO) 0.4 % (0.0-2.0); EOSINOPHILS % (AUTO) 2.4 % (0.0-6.0); HEMATOCRIT 24 % (39-51); HEMOGLOBIN 7.9 g/dL (13.5-17.5); LYMPHOCYTES # (AUTO) 0.6 K/uL (0.8-4.8); LYMPHOCYTES % (AUTO) 17.2 % (20.0-44.0); MEAN CORPUSCULAR HGB CONC 33 g/dl (31.0-36.0); MEAN CORPUSCULAR VOLUME 91 fL (80-96); MONOCYTES # (AUTO) 0.3 K/uL (0.1-1.30); NEUTROPHILS # (AUTO) 2.5 K/uL (1.8-8.9); PLATELET COUNT (AUTO) 93 K/uL (150-450); RED BLOOD CELL COUNT(AUTO) 2.64 MIL/uL (4.5-6.0); WHITE BLOOD COUNT (AUTO) 3.5 K/uL (4.3-11.0)
[2021-03-29 06:41] LABS: CALCIUM, SERUM 7.5 mg/dL (8.5-10.1); CREATININE 1.9 mg/dL (0.6-1.3); POTASSIUM 3.8 mmol/L (3.5-5.1)
--- NOTE | 2021-03-29 06:46 | NUR ---
RN NOTE PATIENT REMAINS ON ALERT ORIENTED X4 VERBALLY RESPONSIVE ON BIPAP ON HEPARIN DRIP NO SOB NOT ACUTE DISTRESS NOTED,ALL DUE MEDS GIVEN MD ORDERED KEPT CLEAN AND DRY ALL NEEDS MET,KEPT CALL LIGHT WITHIN REACH ENDORSE NEXT COMING SHIFT FOR CONTINUATION OF CARE.
--- NOTE | 2021-03-29 07:35 | NUR ---
RN NOTE PATIENT RECEIVED IN BED, ASLEEP. PATIENT ON BIPAP AT 30% FIO2 WITH NO SIGNS OF LABORED BREATHING AND SATURATING AT 92%. RIGHT FA 18G AND RIGHT 20G SL IN PLACE, PATENT AND RUNNING HEPARIN DRIP AT 1350 UNITS/HR PER PROTOCOL. RIGHT FEMORAL HD CATH IN PLACE. BED LOCKED AND IN LOWEST POSITION, CALL LIGHT WITHIN REACH, 2 SIDE RAILS UP. WILL CONTINUE TO MONITOR.
--- NOTE | 2021-03-29 07:41 | NUR ---
RN NOTE APTT OF 59.8 THIS AM. NO CHANGE IN HEPARIN DRIP. WILL CONTINUE TO MONITOR.
[2021-03-29] MEDS: BLOOD SUGAR DIAGNOSTIC 1 EACH STRIP IN SCH ×4 (07:47→22:02)
[2021-03-29] MEDS: ENSURE ENLIVE CHOC 237 ML CAN PO SCH (08:00)
[2021-03-29] MEDS: CITRIC ACID/SODIUM CITRATE (BICITRA)15 ML UDC PO SCH ×4 (08:16→20:47)
[2021-03-29] MEDS: NIFEdipine XL (30MG) 30 MG TAB PO SCH (08:16)
[2021-03-29] MEDS: CHOLECALCIFEROL 1,000 UNIT TABLET (VIT D3) PO SCH (08:16)
[2021-03-29] MEDS: ESCITALOPRAM OXALATE (10 MG) 10 MG TABLET PO SCH (08:16)
[2021-03-29] MEDS: DEXAMETHASONE SOD PHOSPHATE 10 MG/ML VIAL IJ SCH (08:16)
[2021-03-29] MEDS: hydrALAZINE HCL 50 MG TABLET PO SCH ×3 (08:17→16:08)
[2021-03-29] MEDS: DOXAZOSIN MESYLATE (4 MG) 4 MG TABLET PO SCH (08:17)
[2021-03-29] MEDS: NITROGLYCERIN 30 GM TUBE TP SCH ×2 (08:17→20:48)
[2021-03-29] MEDS: PANTOPRAZOLE 40 MG TABLET.DR PO SCH (09:10)
[2021-03-29] MEDS: FLUTICASONE/VILANTEROL 1 EACH BLST.W.DEV IH SCH (09:10)
[2021-03-29] MEDS: HEPARIN INFUSION/D5W 500 ML IV PRN (09:16)
--- NOTE | 2021-03-29 11:59 | NUR ---
RN NOTE ACCU CHECK 159. PATIENT REFUSING LUNCH AT THIS TIME. PER ISHAN [place], OKAY TO HOLD INSULIN. WILL CONTINUE TO MONITOR.
[2021-03-29] MEDS ORDERED: NEPRO VAN 237 ML CAN PO PRN (12:00)
[2021-03-29 14:20] LABS: ABG BASE EXCESS -0.3 mmol/L; ABG OXYGEN SATURATION 83.7 % (92.0-98.5); ABG PCO2 68.7 mmHg (35.0-45.0); ABG PO2 49.9 mmHg (75.0-100.0); AaDO2 302.3 mmHg; COHb 1.1 % (0.5-1.5); MetHb 0.2 % (0.0-1.5); O2Hb 82.6 % (94.0-97.0); SITE, ABG Left Radial; VENT MODE, BG 60 flow/ 60% fio2
[2021-03-29] MEDS: WARFARIN SODIUM 2.5 MG TABLET PO SCH (16:09)
[2021-03-29] MEDS: INSULIN REGULAR, HUMAN 100 UNIT/ML 3 ML VIAL SQ PRN ×2 (17:21→22:05)
--- NOTE | 2021-03-29 18:37 | NUR ---
RN NOTE PATIENT REMAINS IN BED, RESTING PATIENT ON BIPAP AT 35% FIO2 WITH NO SIGNS OF LABORED BREATHING AND SATURATING AT 94%. RIGHT FA 18G AND RIGHT 20G SL IN PLACE, PATENT AND RUNNING HEPARIN DRIP AT 1350 UNITS/HR PER PROTOCOL. RIGHT FEMORAL HD CATH IN PLACE. ALL NEEDS ATTENDED DURING SHIFT. BED LOCKED AND IN LOWEST POSITION, CALL LIGHT WITHIN REACH, 2 SIDE RAILS UP. WILL ENDORSE TO SASH ASSEMBLER NURSE.
--- NOTE | 2021-03-29 19:00 | NUR ---
HAND LAUNDERER NOTE RECEIVED PATIENT IN BED RESTING ALERT ORIENTED X4 VERBALLY RESPONSIVE ON BIPAP FIO2:35% O2:93% ON HEPARIN DRIP 1350 UNIT/HR,IV SITE IS ON RIGHT FOREARM AND RIGHT HAND INTACT PATENT,INTACT.SAFETY MEASURE IMPLEMENT,HEAD OF THE BED ELEVATED,CALL LIGHT WITHIN REACH,BED IN LOW POSITION AND LOCKED,CONTINUE TO MONITOR.
[2021-03-29] MEDS: QUETIAPINE FUMARATE 25 MG TABLET PO SCH (21:43)
[2021-03-29] MEDS: ATORVASTATIN 10 MG TABLET PO SCH (21:43)
[2021-03-30] VITALS (41 sets, daily range): BP systolic 93–133; BP diastolic 44–70
[2021-03-30] MEDS: HEPARIN INFUSION/D5W 500 ML IV PRN ×2 (03:14→21:02)
[2021-03-30 04:54] LABS: BASOPHILS % (AUTO) 0.4 % (0.0-2.0); EOSINOPHILS % (AUTO) 2.1 % (0.0-6.0); HEMATOCRIT 24 % (39-51); LYMPHOCYTES # (AUTO) 0.7 K/uL (0.8-4.8); LYMPHOCYTES % (AUTO) 19.5 % (20.0-44.0); MEAN CORPUSCULAR HGB CONC 34 g/dl (31.0-36.0); MEAN CORPUSCULAR VOLUME 90 fL (80-96); MONOCYTES # (AUTO) 0.3 K/uL (0.1-1.30); MONOCYTES % (AUTO) 7.8 % (2.0-12.0); NEUTROPHILS # (AUTO) 2.5 K/uL (1.8-8.9); NEUTROPHILS % (AUTO) 70.2 % (43.0-81.0); PLATELET COUNT (AUTO) 83 K/uL (150-450); RED BLOOD CELL COUNT(AUTO) 2.62 MIL/uL (4.5-6.0); WHITE BLOOD COUNT (AUTO) 3.6 K/uL (4.3-11.0)
[2021-03-30 05:14] LABS: CALCIUM, SERUM 7.9 mg/dL (8.5-10.1); CREATININE 1.8 mg/dL (0.6-1.3); POTASSIUM 3.9 mmol/L (3.5-5.1)
--- NOTE | 2021-03-30 05:52 | NUR ---
RN NOTE PTT RESULTS IS 66.7 NO CHANGE IN HEPARIN RATE CONTINUE TO MONITOR.
--- NOTE | 2021-03-30 06:53 | NUR ---
RN NOTE PATIENT REMAINS ON ALERT ORIENTED X4 VERBALLY RESPONSIVE COLOMBIAN SPEAKING ONLY,ON BIPAP TOLERATING WELL,ON HEPARIN DRIP ALL DUE MEDS GIVEN MD ORDERED KEPT CLEAN AND DRY ALL THE TIME,HEAD OF THE BED ELEVATED ENDORSE NEXT COMING SHIFT FOR CONTINUATION OF CARE.
--- NOTE | 2021-03-30 07:00 | NUR ---
RN NOTES RECEIVED PT ON BED ,ALERT, ON BIPAP , TOLERATING THE CURRENT SETTING WELL, NO SING OF DISTRESS, NO PAIN COMPLAINT, TELE MONITOR, SR HR IN 70'S , RFA# 18 AND R HAND # 20 PATENT AND FLUSHED, PT IS ON HEPARIN DRIP AT 1350 U/HR , RIGHT FEM HD CATH , DRESSING INTACT, BED ON LOWEST POSITION AND LOCKED SIDE RAILS UP X3 , CALL LIGHT WITHIN EASY REACH, WILL CONT TO MONITOR.
[2021-03-30] MEDS: BLOOD SUGAR DIAGNOSTIC 1 EACH STRIP IN SCH ×4 (07:34→21:27)
--- NOTE | 2021-03-30 08:01 | NUR ---
RT PER DR LONDON PATIENT TO REMAIN ON HFNC TOLERATED AND TO BE PLACED BACK ON BIPAP FOR DISTRESS AND NOCTURNAL. Addendum: 03/30/21 at 1154 by MAIN LINDSEY RT Amended: Links added.
[2021-03-30] MEDS: CITRIC ACID/SODIUM CITRATE (BICITRA)15 ML UDC PO SCH ×4 (08:09→21:26)
[2021-03-30] MEDS: NIFEdipine XL (30MG) 30 MG TAB PO SCH (08:10)
[2021-03-30] MEDS: PANTOPRAZOLE 40 MG TABLET.DR PO SCH (08:10)
[2021-03-30] MEDS: CHOLECALCIFEROL 1,000 UNIT TABLET (VIT D3) PO SCH (08:10)
[2021-03-30] MEDS: ESCITALOPRAM OXALATE (10 MG) 10 MG TABLET PO SCH (08:11)
[2021-03-30] MEDS: DEXAMETHASONE SOD PHOSPHATE 4 MG/ML VIAL IJ SCH (08:11)
[2021-03-30] MEDS: DOXAZOSIN MESYLATE (4 MG) 4 MG TABLET PO SCH (08:11)
[2021-03-30] MEDS: hydrALAZINE HCL 50 MG TABLET PO SCH ×3 (08:11→16:23)
[2021-03-30] MEDS: FLUTICASONE/VILANTEROL 1 EACH BLST.W.DEV IH SCH (08:13)
[2021-03-30] MEDS: NITROGLYCERIN 30 GM TUBE TP SCH ×2 (08:13→21:28)
[2021-03-30] MEDS: clonazePAM 0.5 MG TABLET PO PRN (09:31)
[2021-03-30] MEDS: INSULIN REGULAR, HUMAN 100 UNIT/ML 3 ML VIAL SQ PRN ×3 (13:16→21:37)
--- NOTE | 2021-03-30 13:44 | NUR ---
RT PATIENT PLACED BACK ON BIPAP POST ABG RESULTS ON HFNC. PER DR LONDON TOMORROW PLACE PATIENT ON HFNC 60L 40% AT 7AM AND ABG AT 1300. Addendum: 03/30/21 at 1345 by MINNA GALLO RT Amended: Links added.
[2021-03-30] MEDS: WARFARIN SODIUM 2.5 MG TABLET PO SCH (16:24)
--- NOTE | 2021-03-30 18:15 | NUR ---
RN NOTES PT ON BIPAP AND HIGH FLOW ON AND OFF , O2 SAT WNL, ON TELE SR HR IN 70'S , PT RECEIVED HD ON THIS SHIFT, TOLERATED WELL, NO DISTRESS NOTED AT THIS TIME.SUPPORTIVE FAMILY AT THE BEDSIDE, HEPARIN DRIP AT 1350 U/HR RUNNING , NO SIGN OF BLEEDING NOTED, SR UP X3, CALL LIGHT WITHIN EASY REACH, BED LOCKED AND IN LOWEST POSITION, WILL ENDORSE TO HIM ASSISTANT NURSE FOR CONTINUITY OF CARE .
--- NOTE | 2021-03-30 19:59 | NUR ---
RN NOTE RECEIVED PATIENT IN BED, SLEEPING, AROUSABLE TO NAME AND TOUCH. ABLE TO MAKE NEEDS KNOWN. BREATHING EVEN AND UNLABORED. DENIES FEELING SHORTNESS OF BREATH. CURRENTLY ON BIPAP, SETTINGS OF IPAP 25/EPAP5, RATE 20, FIO2 35%. TOLERATING WELL. ON TELE MONITORING, SINUS RHYTHM AT 83 BPM. DENIES CHEST PAIN. SKIN WARM AND DRY. NOTED WITH PERIPHERAL IV ON RIGHT FOREARM 18G, AND RIGHT HAND 20G, CURRENTLY RUNNING HEPARIN AT 1350 UNITS. NO INFILTRATION NOTED. NO BLEEDING NOTED. NOTED WITH RIGHT FEMORAL HD ACCESS. DRESSING INTACT, NO BLEEDING. ALL NEEDS ATTENDED. BED LOW, IN LOCKED POSITION, CALL LIGHT WITHIN REACH.
--- NOTE | 2021-03-30 19:59 | NUR ---
RECEIVED PT ON BIPAP, PT IS AWAKE NO RESP DISTRESS NOTED TOLERATING SETTINGS. CONTINUE TO MONITOR. Addendum: 03/30/21 at 1999 by KAILYN OCHOA RT Amended: Links added.
[2021-03-30] MEDS: ATORVASTATIN 10 MG TABLET PO SCH (21:27)
[2021-03-30] MEDS: QUETIAPINE FUMARATE 25 MG TABLET PO SCH (21:27)
[2021-03-30 22:57] LABS: ABG BASE EXCESS 0.8 mmol/L; ABG OXYGEN SATURATION 95.1 % (92.0-98.5); ABG PCO2 71.2 mmHg (35.0-45.0); ABG PH 7.231 (7.350-7.450); ABG PO2 85.5 mmHg (75.0-100.0); AaDO2 117.8 mmHg; COHb 0.4 % (0.5-1.5); MetHb 0.4 % (0.0-1.5); O2Hb 94.3 % (94.0-97.0); SITE, ABG Right Radial; VENT MODE, BG HFNC 60L 40%
[2021-03-31] VITALS (62 sets, daily range): BP systolic 69–159; BP diastolic 45–83
--- NOTE | 2021-03-31 05:53 | NUR ---
RN NOTE NEW PTT RESULT OF 70.8. DOSE RATE CHANGED PER HEPARIN DOSING PROTOCOL FOR NON ACS. PATIENT NOW ON 1150 UNITS/HR. NO S/S OF BLEEDING AT THIS TIME. WILL CONTINUE TO MONITOR.
--- NOTE | 2021-03-31 06:01 | NUR ---
FIO2 INCREASED TO 50% DUE TO LOW O2 SAT 86%, RN NOTIFIED.
--- NOTE | 2021-03-31 07:22 | NUR ---
PT TAKEN OFF BIPAP AND PLACED ON HI FLOW NASAL CANNULA 60L 100% PER MD ORDERS. WILL CONTINUE TO MONITOR.
--- NOTE | 2021-03-31 07:30 | NUR ---
REPORT RECEIVED FROM GIFTY JAEGER. PT CURRENTLY ON BIPAP. ORDER FOR THIS AM IS TO TAKE PATIENT OFF BIPAP, TRIAL ON HIGH FLOW NASAL CANNULA WITH ABG AT 1300. HEPARIN GTT INFUSING PER MD ORDERS. NEXT PTT IS AT 1200 PER REPORT AND MD ORDERS. WILL CONTINUE TO MONITOR. Addendum: 03/31/21 at 0913 by SPARKLE OCHOA RN CORRECTION ON TIME FOR THIS NOTE TO 0715
[2021-03-31] MEDS: PROPOFOL 100 ML IV PRN ×4 (08:05→21:32)
--- NOTE | 2021-03-31 08:05 | NUR ---
AT 0745 PT' O2 SATS STARTED DROPPING INTO 80'S THEN 70'S, RT YOSHI CALLED, ARRIVED RIGHT AWAY TO PUT PATIENT BACK ON BIPAP. WHILE YOSHI WAS PUTTING PATIENT BACK ON BIPAP PATIENT LOST CONSCIOUSNESS, NO PULSE WAS DETECTED, YOSHI RT AND SPARKLE RN IN ROOM AT TIME AT 0752. MARY GARCIA CALLED AT 0752. PT RETURNED TO [facility] AT 0756. PT WAS INTUBATED AT [address] LONDON AND CECILIA OLMSTEAD ARRIVED MARY GARCIA ENDED AND STATED THEY WOULD NOTIFY FAMILY. DIPRIVAN STARTED AT THIS TIME FOR SEDATION. WILL CONTINUE TO MONITOR.
[2021-03-31] MEDS ORDERED: PROPOFOL 200 MG/20 ML VIAL IV ONE (08:07)
[2021-03-31] MEDS ORDERED: SODIUM BICARBONATE SYR 50 MEQ/50 ML DISP.SYRIN IV ONE (08:07)
[2021-03-31] MEDS ORDERED: EPINEPHRINE (1:10,000) SYRINGE 1 MG/10 ML DISP.SYRIN IVP ONE (08:07)
--- NOTE | 2021-03-31 08:21 | NUR ---
WOUND CARE FOLLOW UP: PT IS STATUS POST CODE BLUE. UNABLE TO DO SKIN ASSESSMENT/FOLLOW UP OF SACRAL DEEP TISSUE INJURY AT THIS TIME. PT IS NOW INTUBATED. DISCUSSED SKIN PROTECTION WITH NURSING STAFF. RECOMMEND LOW AIRLOSS MATTRESS, ON ORDER. MD IN AGREEMENT WITH PLAN OF CARE.
[2021-03-31] MEDS ORDERED: DEXTROSE 50%-WATER 50 ML DISP.SYRIN IV PRN (08:30)
[2021-03-31] MEDS ORDERED: PHARMACY TO CHANGE PO MEDS TO GT/NG XX PRN (08:30)
[2021-03-31] MEDS: FLUTICASONE/VILANTEROL 1 EACH BLST.W.DEV IH SCH (08:59)
[2021-03-31] MEDS ORDERED: NEPRO VAN 237 ML CAN GT PRN (09:00)
[2021-03-31] MEDS: NITROGLYCERIN 30 GM TUBE TP SCH ×2 (09:00→21:00)
[2021-03-31] MEDS ORDERED: GUAIFENESIN 300 MG/15 ML UDC GT PRN (09:00)
[2021-03-31] MEDS ORDERED: clonazePAM 0.5 MG TABLET GT PRN (09:00)
[2021-03-31] MEDS: ESCITALOPRAM OXALATE (10 MG) 10 MG TABLET GT SCH (09:00)
[2021-03-31] MEDS: NIFEdipine XL (30MG) 30 MG TAB PO SCH (09:00)
[2021-03-31] MEDS ORDERED: POLYETHYLENE GLYCOL 3350 17 GM POWD.PACK GT PRN (09:00)
[2021-03-31] MEDS: hydrALAZINE HCL 50 MG TABLET GT SCH ×3 (09:00→17:00)
[2021-03-31] MEDS: DOXAZOSIN MESYLATE (4 MG) 4 MG TABLET GT SCH (09:00)
[2021-03-31 09:48] LABS: EOSINOPHILS % (AUTO) 0.6 % (0.0-6.0); HEMATOCRIT 26 % (39-51); HEMOGLOBIN 8.3 g/dL (13.5-17.5); LYMPHOCYTES # (AUTO) 0.1 K/uL (0.8-4.8); LYMPHOCYTES % (AUTO) 2.6 % (20.0-44.0); MEAN CORPUSCULAR HGB CONC 32 g/dl (31.0-36.0); MEAN CORPUSCULAR VOLUME 93 fL (80-96); MONOCYTES # (AUTO) 0.2 K/uL (0.1-1.30); MONOCYTES % (AUTO) 5.1 % (2.0-12.0); NEUTROPHILS # (AUTO) 4.1 K/uL (1.8-8.9); NEUTROPHILS % (AUTO) 91.7 % (43.0-81.0); PLATELET COUNT (AUTO) 75 K/uL (150-450); RED BLOOD CELL COUNT(AUTO) 2.79 MIL/uL (4.5-6.0); WHITE BLOOD COUNT (AUTO) 4.4 K/uL (4.3-11.0)
[2021-03-31 10:17] LABS: CALCIUM, SERUM 8.5 mg/dL (8.5-10.1); POTASSIUM 4.4 mmol/L (3.5-5.1)
[2021-03-31] MEDS: CHOLECALCIFEROL 1,000 UNIT TABLET (VIT D3) GT SCH (11:05)
[2021-03-31] MEDS: CITRIC ACID/SODIUM CITRATE (BICITRA)15 ML UDC GT SCH ×4 (11:05→21:21)
[2021-03-31] MEDS: PANTOPRAZOLE 40 MG/PACK PACK NG SCH (11:05)
[2021-03-31] MEDS: DEXAMETHASONE SOD PHOSPHATE 4 MG/ML VIAL IJ SCH (11:05)
[2021-03-31] MEDS ORDERED: NOREPINEPHRINE 8 MG in IV NS 0.9% 242 ML IV PRN (12:00)
[2021-03-31] MEDS: BLOOD SUGAR DIAGNOSTIC 1 EACH STRIP IN SCH ×3 (12:10→23:52)
[2021-03-31 12:14] LABS: ABG BASE EXCESS 1.9 mmol/L; ABG OXYGEN SATURATION 94.7 % (92.0-98.5); ABG PCO2 45.5 mmHg (35.0-45.0); ABG PH 7.393 (7.350-7.450); ABG PO2 67.9 mmHg (75.0-100.0); AaDO2 599.6 mmHg; COHb 0.3 % (0.5-1.5); MetHb 0.5 % (0.0-1.5); O2Hb 93.9 % (94.0-97.0); SITE, ABG Right Radial; VENT MODE, BG AC 24 450 100% +5
[2021-03-31] MEDS: PIPERACILLIN /TAZOBACTAM 2.25 G in IV D5W 50 ML IV SCH ×2 (12:37→21:30)
[2021-03-31] MEDS: ACETAMINOPHEN 650 MG/20.3 ML UDC GT PRN (12:37)
[2021-03-31] MEDS: IV NS 0.9% 250 ML IV PRN (13:05)
--- NOTE | 2021-03-31 14:58 | NUR ---
PATIENT WERE TAKING OFF BIPAP EARLIER THIS MORNING TO HIGH FLOW WITH SATURATION OF 99% @ 0722 AM. THEN AT 7:45 PATIENT DESAT AND CODE WAS CALLED AT 0752 AM. PATIENT WAS INTUBATED AT 0800 AM WITH ET SIZE 7.5 CM WITH 23 @ THE LIP. Addendum: 03/31/21 at 1502 by MEME ANGEL RT Amended: Links added.
[2021-03-31] MEDS: WARFARIN SODIUM 2.5 MG TABLET GT SCH (18:02)
[2021-03-31] MEDS: HEPARIN INFUSION/D5W 500 ML IV PRN (18:04)
[2021-03-31] MEDS: INSULIN REGULAR, HUMAN 100 UNIT/ML 3 ML VIAL SQ PRN ×2 (18:38→23:57)
[2021-03-31] MEDS: QUETIAPINE FUMARATE 25 MG TABLET GT SCH (21:21)
[2021-03-31] MEDS: ATORVASTATIN 10 MG TABLET GT SCH (21:21)
[2021-04-01] VITALS (80 sets, daily range): BP systolic 86–124; BP diastolic 50–64
[2021-04-01] MEDS: PROPOFOL 100 ML IV PRN ×6 (01:59→23:31)
[2021-04-01] MEDS: PIPERACILLIN /TAZOBACTAM 2.25 G in IV D5W 50 ML IV SCH ×3 (04:55→21:47)
[2021-04-01] MEDS: BLOOD SUGAR DIAGNOSTIC 1 EACH STRIP IN SCH ×4 (05:39→23:54)
[2021-04-01] MEDS: INSULIN REGULAR, HUMAN 100 UNIT/ML 3 ML VIAL SQ PRN ×3 (05:41→23:55)
--- NOTE | 2021-04-01 07:05 | NUR ---
RN NOTES RECEIVED PT INTUBATED , TOLERATING VENT SETTING WELL, O2 SAT WNL, ON TELE SR HR IN 60'S , HEPARIN DRIP AT 1150 U/HR , AND DIPRIVAN AT 35MCG/KG/MIN INFUSING , IV SITES CLEAN , DRY AND INTACT, SR UP x3, CALL LIGHT WITHIN EASY REACH , BED LOCKED AND IN LOWEST POSITION, CONTINUE TO MONITOR.
--- NOTE | 2021-04-01 07:10 | NUR ---
RN NOTE APTT RESULT NOT RELEASED THIS MORNING, WAITING FOR REDRAW. NOT RESULTED AT THIS TIME, ENDORSED TO DAY SHIFT RN.
--- NOTE | 2021-04-01 07:48 | NUR ---
WOUND CARE FOLLOW UP: PT SEEN FOR RE-EVALUATION OF SACRAL /BILATERAL BUTTOCK DEEP TISSUE INJURIES AND DEEP TISSUE INJURY TO NASAL BRIDGE WHICH IS NOW A DRY SCAB. NO SIGN OF INFECTION NOTED. RECOMMENDATIONS MADE FOR SKIN PROTECTION. DISCUSSED WITH NURSING STAFF AND SURGICAL N.P. CURRENTLY ON CASE. TREATMENT ORDERS UPDATED. PT IS CURRENTLY INTUBATED AND IS ON FIRST STEP [facility]. IN AGREEMENT WITH PLAN OF CARE. Addendum: 04/01/21 at 0750 by NANCY MEJIA WNDNU Amended: Links added.
[2021-04-01] MEDS: ESCITALOPRAM OXALATE (10 MG) 10 MG TABLET GT SCH (08:56)
[2021-04-01] MEDS: CITRIC ACID/SODIUM CITRATE (BICITRA)15 ML UDC GT SCH ×4 (08:56→21:47)
[2021-04-01] MEDS: CHOLECALCIFEROL 1,000 UNIT TABLET (VIT D3) GT SCH (08:56)
[2021-04-01] MEDS: hydrALAZINE HCL 50 MG TABLET GT SCH ×3 (08:56→16:27)
[2021-04-01] MEDS: FLUTICASONE/VILANTEROL 1 EACH BLST.W.DEV IH SCH (08:56)
[2021-04-01] MEDS: PANTOPRAZOLE 40 MG/PACK PACK NG SCH (08:56)
[2021-04-01] MEDS: DEXAMETHASONE SOD PHOSPHATE 4 MG/ML VIAL IJ SCH (08:56)
[2021-04-01] MEDS: DOXAZOSIN MESYLATE (4 MG) 4 MG TABLET GT SCH (08:57)
[2021-04-01 08:58] LABS: CALCIUM, SERUM 7.7 mg/dL (8.5-10.1); CREATININE 2.2 mg/dL (0.6-1.3); POTASSIUM 3.9 mmol/L (3.5-5.1)
[2021-04-01] MEDS: NIFEdipine XL (30MG) 30 MG TAB PO SCH (08:58)
[2021-04-01] MEDS: NITROGLYCERIN 30 GM TUBE TP SCH ×2 (08:58→21:47)
[2021-04-01] MEDS: NEPRO 1,000 ML BOTTLE GT PRN (12:51)
--- NOTE | 2021-04-01 14:00 | NUR ---
RN NOTES DR POLLARD NOTIFIED REGARDING GRAM POSITIVE COCCI IN CLUSTERS IN BLOOD CULTURE .
[2021-04-01] MEDS: WARFARIN SODIUM 2.5 MG TABLET GT SCH (16:36)
--- NOTE | 2021-04-01 18:00 | NUR ---
RN NOTES PT REMAINS SEDATED AND INTUBATED,ON DIPRIVAN AT 35 MCG/KG/MIN, PT RECEIVED HD ON THIS SHIFT, IV SITES CLEAN ,DRY AND INTACT, TF AT 45CC/HR RUNNING , SR UP x3, CALL LIGHT WITHIN EASY REACH , BED LOCKED AND IN LOWEST POSITION, WILL ENDORSE TO TITLE I TEACHER NURSE FOR CONTINUITY OF CARE.
--- NOTE | 2021-04-01 19:10 | NUR ---
RN NOTES RECEIVED REPORT FROM MORNING NURSE. PATIENT IN BED WITH ETT IN PLACE CONNECTED TO MV WITH FF SETTING AC 24, VT 450, FIO2 500 PEEP 10 TOLERATING WELL SATING 100%. WITH NGT PATENT CONNECTED TO CONTINUOS FEEDING NEPRO @45CC/H NO GASTRIC RESIDUAL NOTED. WITH IV ACCESS AT HEATHER PICC LINE, RFA#20, RH #20 AND R FEMORAL HD CATH INTACT NO BLEEDING NOTED. ON DIPRIVAN DRIP AT 45 MCG/KG/MIN. JOANNA BILATERAL SOFT RESTRAINTS IN PLACE. ALL SAFETY MEASURES IN PLACE AT ALL TIMES. HOB ELEVATED. CALL LIGHT WITHIN REACH. BED ON LOWEST POSITION AND LOCKED. WILL CLOSELY MONITOR THE PATIENT.
[2021-04-01] MEDS: QUETIAPINE FUMARATE 25 MG TABLET GT SCH (21:48)
[2021-04-01] MEDS: ATORVASTATIN 10 MG TABLET GT SCH (21:48)
[2021-04-02] VITALS (25 sets, daily range): BP systolic 102–144; BP diastolic 54–71
--- NOTE | 2021-04-02 | NUR ---
RN NOTES BS 174MG/DL DUE REGULAR INSULIN PER SLIDING SCALE 3 UNITS GIVEN.
[2021-04-02] MEDS: PROPOFOL 100 ML IV PRN ×6 (03:33→21:05)
[2021-04-02] MEDS: PIPERACILLIN /TAZOBACTAM 2.25 G in IV D5W 50 ML IV SCH ×3 (04:51→20:40)
--- NOTE | 2021-04-02 05:00 | NUR ---
RN NOTES DIPRIVAN INCREASED TO 50 MCG/KG/MIN.
[2021-04-02] MEDS: BLOOD SUGAR DIAGNOSTIC 1 EACH STRIP IN SCH ×3 (05:32→18:09)
[2021-04-02] MEDS: INSULIN REGULAR, HUMAN 100 UNIT/ML 3 ML VIAL SQ PRN ×3 (05:33→18:09)
--- NOTE | 2021-04-02 06:00 | NUR ---
RN NOTES BS 161MG/DL 3 UNITS REGULAR INSULIN GIVEN PER SLIDING SCALE
[2021-04-02 06:12] LABS: CALCIUM, SERUM 7.3 mg/dL (8.5-10.1); CREATININE 1.9 mg/dL (0.6-1.3); POTASSIUM 3.8 mmol/L (3.5-5.1)
[2021-04-02 06:18] LABS: BASOPHILS % (AUTO) 0.1 % (0.0-2.0); EOSINOPHILS % (AUTO) 0.6 % (0.0-6.0); HEMATOCRIT 23 % (39-51); LYMPHOCYTES # (AUTO) 0.5 K/uL (0.8-4.8); LYMPHOCYTES % (AUTO) 6.4 % (20.0-44.0); MEAN CORPUSCULAR HGB CONC 35 g/dl (31.0-36.0); MEAN CORPUSCULAR VOLUME 90 fL (80-96); MONOCYTES # (AUTO) 0.4 K/uL (0.1-1.30); MONOCYTES % (AUTO) 5.2 % (2.0-12.0); NEUTROPHILS # (AUTO) 6.6 K/uL (1.8-8.9); NEUTROPHILS % (AUTO) 87.7 % (43.0-81.0); PLATELET COUNT (AUTO) 60 K/uL (150-450); RED BLOOD CELL COUNT(AUTO) 2.52 MIL/uL (4.5-6.0); WHITE BLOOD COUNT (AUTO) 7.5 K/uL (4.3-11.0)
--- NOTE | 2021-04-02 06:58 | NUR ---
RN NOTES PATIENT REMAINS IN DIPRIVAN @50MCK/KG/MIN. PATIENT IS SEDATED. WITH ET INTACT CONNECTED TO MV. NGT PATENT. ALL DUE MEDS GIVEN ORDERED. ALL SAFETY MEASURES IN PLACE AT ALL TIMES. HOB ELEVATED. CALL LIGHT WITHIN REACH. BED ON LOWEST POSITION AND LOCKED. ALL NEEDS ATTENDED. WILL ENDORSED TO MORNING SHIFT FOR RODDY
[2021-04-02] MEDS ORDERED: PHARMACY TO CHANGE PO MEDS TO GT/NG XX PRN (08:30)
--- NOTE | 2021-04-02 09:00 | NUR ---
PT HAD >150ML RESIDUALS ASPIRATED FROM NG TUBE. TUBE FEEDING HELD AT THIS TIME. WILL REASSESS AT NOON.
[2021-04-02] MEDS: DEXAMETHASONE SOD PHOSPHATE 4 MG/ML VIAL IJ SCH (09:08)
[2021-04-02] MEDS: CITRIC ACID/SODIUM CITRATE (BICITRA)15 ML UDC GT SCH ×4 (09:08→20:40)
[2021-04-02] MEDS: NITROGLYCERIN 30 GM TUBE TP SCH ×2 (09:09→20:44)
[2021-04-02] MEDS: hydrALAZINE HCL 50 MG TABLET GT SCH ×3 (09:09→18:07)
[2021-04-02] MEDS: PANTOPRAZOLE 40 MG/PACK PACK NG SCH (09:09)
[2021-04-02] MEDS: CHOLECALCIFEROL 1,000 UNIT TABLET (VIT D3) GT SCH (09:10)
[2021-04-02] MEDS: DOXAZOSIN MESYLATE (4 MG) 4 MG TABLET GT SCH (09:10)
[2021-04-02] MEDS: ESCITALOPRAM OXALATE (10 MG) 10 MG TABLET GT SCH (09:10)
[2021-04-02] MEDS: AMLODIPINE BESYLATE 10 MG TABLET GT SCH (09:13)
[2021-04-02] MEDS: LORAZEPAM INJ 2 MG/ML VIAL IV PRN ×2 (09:22→18:06)
[2021-04-02 09:36] LABS: ABG BASE EXCESS 2.5 mmol/L; ABG OXYGEN SATURATION 98.3 % (92.0-98.5); ABG PH 7.469 (7.350-7.450); ABG PO2 120.9 mmHg (75.0-100.0); COHb 0.3 % (0.5-1.5); MetHb 0.3 % (0.0-1.5); O2Hb 97.7 % (94.0-97.0); PEEP,BG 10 cm H2O; SITE, ABG Right Radial; VENT MODE, BG AC 24 450 50% +10; VT, ABG 450 mL
[2021-04-02] MEDS: NEPRO 1,000 ML BOTTLE GT PRN (11:52)
--- NOTE | 2021-04-02 12:00 | NUR ---
>180 ML RESIDUAL NOTED FROM NG TUBE AT THIS TIME. TUBE FEEDING CONTINUED TO BE HELD
--- NOTE | 2021-04-02 12:00 | NUR ---
>17 Addendum: 04/02/21 at 1702 by SPARKLE OCHOA RN DISREGARD, CHARTED BY MISTAKE
[2021-04-02] MEDS: IV NS 0.9% 250 ML IV PRN (14:56)
[2021-04-02] MEDS: WARFARIN SODIUM 2.5 MG TABLET GT SCH (18:08)
--- NOTE | 2021-04-02 18:43 | NUR ---
END OF SHIFT NOTE: RESIDUALS AT 1800 WERE 30ML. TUBE FEEDING RESTARTED AT 10ML/HR. ATIVAN 0.5MG GIVEN X2 THIS SHIFT IN ADDITION TO PROPOFOL INFUSING AT 50MCG/KG/MIN PER MD ORDERS. WHEN PATIENT WAKES PT IS COOPERATIVE AND APPEARS TO UNDERSTAND WHAT IS GOING ON. PT VOIDED X1 THIS SHIFT. PT CHECKED ON HOURLY AND PRN BY NURSING STAFF.
--- NOTE | 2021-04-02 19:10 | NUR ---
CORE FEEDER NOTE RECEIVED PATIENT IN BED RESTING SEDATED,ORALLY INTUBATED, ON NGT NEPRO 10CC/HR CHECKED PLACE IN PLACE WITH 30CC RESIDUAL.IV SITE IS ON RIGHT UPPER ARM PICC LINE,AND RIGHT FOREARM,RIGHT HAND,RIGHT FEMORAL HD CATH INTACT PATENT ON DIPRIVAN DRIP 50MCG/KG/MIN,HEAD OF THE BED ELEVATED,SAFETY MEASURE IMPLEMENT SOFT BILATERAL WRIST RESTRAIN IN PLACE,WILL CHECK EVERY 15 MINS FOR SKIN BREAKDOWN AND CIRCULATION,CONTINUE TO MONITOR.
[2021-04-02] MEDS: QUETIAPINE FUMARATE 25 MG TABLET GT SCH (21:04)
[2021-04-02] MEDS: ATORVASTATIN 10 MG TABLET GT SCH (21:05)
[2021-04-03] VITALS (38 sets, daily range): BP systolic 99–152; BP diastolic 48–73
[2021-04-03] MEDS: BLOOD SUGAR DIAGNOSTIC 1 EACH STRIP IN SCH ×4 (00:01→18:47)
[2021-04-03] MEDS: INSULIN REGULAR, HUMAN 100 UNIT/ML 3 ML VIAL SQ PRN ×4 (00:03→18:48)
[2021-04-03] MEDS: PROPOFOL 100 ML IV PRN ×8 (00:24→20:51)
[2021-04-03] MEDS: PIPERACILLIN /TAZOBACTAM 2.25 G in IV D5W 50 ML IV SCH ×3 (05:04→21:14)
[2021-04-03 05:43] LABS: CREATININE 2.1 mg/dL (0.6-1.3); POTASSIUM 3.9 mmol/L (3.5-5.1)
--- NOTE | 2021-04-03 06:46 | NUR ---
RN NOTE PATIENT REMAINS ON SEDATED, ORALLY INTUBATED ON MECHANICAL VENT,NOT ACUTE DISTRESS NOTED,ALL DUE MED GIVEN MD ORDERED,KEPT CLEAN AND DRY ALL THE TIME,REPOSITIONED EVERY 2 HOURS,KEPT HEAD OF THE BED ELEVATED ON NGT FEEDING NEPRO 10CC/HR ALL NEEDS MET ENDORSE NEXT COMING SHIFT FOR CONTINUATION OF CARE.
--- NOTE | 2021-04-03 08:00 | NUR ---
RN NOTES RECEIVED PATIENT ETT/VENT NO ACUTE RESPIRATORY DISTRESS , FIO2-50%, PEEP-10, PATIENT SEDATED WITH DIPRIVAN 50MCG/KG/HR, KEEP HOB ELEVATED. PATIENT ON NGT RECHECKED RESIDUAL 50ML/HR, HELD FEEDING, ORAL CARE, SUCTION DONE, DUE MEDICATION ADMINISTERED, HR 61 . ASSIST TURN AND REPOSTION Q 2RH. OLIVEIRA DRAINING VIA GRAVITY. PICC LINE ON THE HEATHER INTACT FLASHED WELL. . WILL FOLLOW UP.
[2021-04-03] MEDS: CITRIC ACID/SODIUM CITRATE (BICITRA)15 ML UDC GT SCH ×4 (09:33→21:13)
[2021-04-03] MEDS: AMLODIPINE BESYLATE 10 MG TABLET GT SCH (09:33)
[2021-04-03] MEDS: ESCITALOPRAM OXALATE (10 MG) 10 MG TABLET GT SCH (09:33)
[2021-04-03] MEDS: DEXAMETHASONE SOD PHOSPHATE 4 MG/ML VIAL IJ SCH (09:33)
[2021-04-03] MEDS: PANTOPRAZOLE 40 MG/PACK PACK NG SCH (09:33)
[2021-04-03] MEDS: hydrALAZINE HCL 50 MG TABLET GT SCH ×3 (09:34→17:00)
[2021-04-03] MEDS: CHOLECALCIFEROL 1,000 UNIT TABLET (VIT D3) GT SCH (09:34)
[2021-04-03] MEDS: DOXAZOSIN MESYLATE (4 MG) 4 MG TABLET GT SCH (09:39)
[2021-04-03] MEDS: NITROGLYCERIN 30 GM TUBE TP SCH ×2 (09:40→21:14)
[2021-04-03] MEDS: NEPRO 1,000 ML BOTTLE GT PRN (12:39)
--- NOTE | 2021-04-03 18:30 | NUR ---
RN NOTES PM CARE DONE, SUCTION , MOUTH CARE, DUE MEDICATION ADMINISTERED VIA NGT. RUNNING NEPRO 10ML, BS-163 MG/DL COVERAGE GIVEN, ASSIST TURN AND REPOSTION Q 2 HR. PATIENT SEDATED, NO ACUTE RESPIRATORY DISTRESS. PATIENT ANURIC, BUT URINATED X1. ENDORSED ONCOMING NURSE FOLLOW RODDY.
[2021-04-03] MEDS: WARFARIN SODIUM 2.5 MG TABLET GT SCH (18:55)
--- NOTE | 2021-04-03 19:56 | NUR ---
RN OPENING NOTES RECEIVED PATIENT ETT/VENT NO ACUTE RESPIRATORY DISTRESS , FIO2-50%, PEEP-10, PATIENT SEDATED WITH DIPRIVAN 50MCG/KG/HR, KEEP HOB ELEVATED. PATIENT ON NGT. PATIENT ON TELE MONITOR WITH HR 64. ASSIST TURN AND REPOSTION Q 2RH. PICC LINE ON THE HEATHER INTACT FLASHED WELL. ALL ENVIRONMENTAL AND SAFETY MEASURES IN PLACE. WILL CONTINUE TO MONITOR PATIENT THROUGHOUT THE SHIFT.
[2021-04-03 20:46] LABS: ABG BASE EXCESS 3.4 mmol/L; ABG PCO2 31.4 mmHg (35.0-45.0); ABG PH 7.531 (7.350-7.450); ABG PO2 114.4 mmHg (75.0-100.0); COHb 0.3 % (0.5-1.5); MetHb 0.3 % (0.0-1.5); O2Hb 97.6 % (94.0-97.0); PEEP,BG 10 cm H2O; SITE, ABG Left Radial; VENT MODE, BG AC24 450 50% PEEP+10; VT, ABG 450 mL
[2021-04-03] MEDS: QUETIAPINE FUMARATE 25 MG TABLET GT SCH (21:13)
[2021-04-03] MEDS: ATORVASTATIN 10 MG TABLET GT SCH (21:13)
[2021-04-04] VITALS (39 sets, daily range): BP systolic 104–143; BP diastolic 47–67
[2021-04-04] MEDS: IV NS 0.9% 250 ML IV PRN ×2 (00:21→18:58)
[2021-04-04] MEDS: PROPOFOL 100 ML IV PRN ×5 (00:34→19:51)
[2021-04-04 04:22] LABS: BASOPHILS % (AUTO) 0.1 % (0.0-2.0); HEMATOCRIT 23 % (39-51); HEMOGLOBIN 7.7 g/dL (13.5-17.5); LYMPHOCYTES # (AUTO) 0.6 K/uL (0.8-4.8); LYMPHOCYTES % (AUTO) 6.1 % (20.0-44.0); MEAN CORPUSCULAR HGB CONC 34 g/dl (31.0-36.0); MEAN CORPUSCULAR VOLUME 91 fL (80-96); MONOCYTES # (AUTO) 0.7 K/uL (0.1-1.30); MONOCYTES % (AUTO) 7.4 % (2.0-12.0); NEUTROPHILS # (AUTO) 8.1 K/uL (1.8-8.9); NEUTROPHILS % (AUTO) 86.4 % (43.0-81.0); PLATELET COUNT (AUTO) 88 K/uL (150-450); RED BLOOD CELL COUNT(AUTO) 2.52 MIL/uL (4.5-6.0); WHITE BLOOD COUNT (AUTO) 9.4 K/uL (4.3-11.0)
[2021-04-04 04:35] LABS: CALCIUM, SERUM 7.6 mg/dL (8.5-10.1); CREATININE 2.8 mg/dL (0.6-1.3); POTASSIUM 4.4 mmol/L (3.5-5.1)
[2021-04-04] MEDS: PIPERACILLIN /TAZOBACTAM 2.25 G in IV D5W 50 ML IV SCH ×3 (05:04→22:05)
[2021-04-04] MEDS: BLOOD SUGAR DIAGNOSTIC 1 EACH STRIP IN SCH ×4 (06:06→18:00)
--- NOTE | 2021-04-04 06:42 | NUR ---
RN NOTE PATIENT REMAINS RESTING IN BED, SEDATED ON PROPOFOL 50MCG . ALL PATIENTS NEEDS MET THROUGHOUT THE NIGHT. WILL ENDORSE PLAN OF CARE TO AM NURSE.
--- NOTE | 2021-04-04 08:00 | NUR ---
RN NOTES RECEIVED PATIENT ETT/VENT SETTING, PATIENT SEDATED , NO ACUTE RESPIRATORY DISTRESS, TITRATED PEEP DOWN 5 VIA RT, RECHECKED RESIDUAL 0, DUE MEDICATION ADMINISTERED, KEEP HOB ELEVATED FOR ASPIRATION PRECAUTION. VSS, HR -64 ON BEDSIDE MONITOR. IV ACCESS ON RIGHT UA PICC LINE INTACT, AND HD CATH ON RIGHT FEMORAL INTACT. ASSIST TURN AND REPOSTION, SUCTION, MOUTH CARE DONE. WILL FOLLOW UP.
[2021-04-04] MEDS: CITRIC ACID/SODIUM CITRATE (BICITRA)15 ML UDC GT SCH ×4 (08:02→22:04)
[2021-04-04] MEDS: PANTOPRAZOLE 40 MG/PACK PACK NG SCH (08:02)
[2021-04-04] MEDS: CHOLECALCIFEROL 1,000 UNIT TABLET (VIT D3) GT SCH (08:02)
[2021-04-04] MEDS: DEXAMETHASONE SOD PHOSPHATE 4 MG/ML VIAL IJ SCH (08:03)
[2021-04-04] MEDS: ESCITALOPRAM OXALATE (10 MG) 10 MG TABLET GT SCH (08:03)
[2021-04-04] MEDS: AMLODIPINE BESYLATE 10 MG TABLET GT SCH (08:04)
[2021-04-04] MEDS: NITROGLYCERIN 30 GM TUBE TP SCH ×2 (08:06→22:05)
--- NOTE | 2021-04-04 08:35 | NUR ---
RN NOTES get order from Dr Alvarado stop sedation for weaning from vent. order taken, and carried out. will titrate Diprivan per protocol. WILL FOLLOW UP RT AWARE OF.
[2021-04-04] MEDS: hydrALAZINE HCL 50 MG TABLET GT SCH ×3 (09:51→18:00)
[2021-04-04] MEDS: DOXAZOSIN MESYLATE (4 MG) 4 MG TABLET GT SCH (09:51)
--- NOTE | 2021-04-04 10:05 | NUR ---
RN NOTES PATIENT SIMV MODE AT THIS TIME , NO ACUTE RESPIRATORY DISTRESS, WILL MONITORING.
--- NOTE | 2021-04-04 11:10 | NUR ---
RN NOTES PATIENT STILL SIMV MODE AFTER ABG RESULT. PER Dr MURPHY ORDER LEAVE PATIENT SIVM MIDE, IF NO RESPIRATORY DISTRESS. WILL MONITORING.
--- NOTE | 2021-04-04 12:45 | NUR ---
rn notes patient getting HD at this time, patient awake, no acute respiratory distress.
[2021-04-04 12:58] LABS: LYMPHOCYTES % (MANUAL) 4 % (16-48); MONOCYTES % (MANUAL) 4 % (0-11.0); NEUTROPHILS % (MANUAL) 92 (42-76)
[2021-04-04 15:10] LABS: ABG BASE EXCESS -0.4 mmol/L; ABG OXYGEN SATURATION 92.7 % (92.0-98.5); ABG PCO2 45.4 mmHg (35.0-45.0); ABG PH 7.361 (7.350-7.450); ABG PO2 68.3 mmHg (75.0-100.0); AaDO2 164.7 mmHg; COHb 0.2 % (0.5-1.5); MetHb 0.2 % (0.0-1.5); O2Hb 92.3 % (94.0-97.0); SITE, ABG Right Radial
--- NOTE | 2021-04-04 15:32 | NUR ---
RN NOTES FINISHED DIALYSIS AT THIS TIME OUTPUT WAS 1000 ML. BECAUSE OF RESULT OF BLOOD CULTURE POSITIVE PER Dr HERNANDEZ TO ORDER TO REMOVE AFTER HD . CATHETER WAS REMOVED VIA HD NURSE. PATIENT SEDATED AT THIS TIME PER DR GIL ORDER. BP 131/59, P-67. PATIENT HAS NO ACUTE RESPIRATORY DISTRESS.
[2021-04-04] MEDS: NEPRO 1,000 ML BOTTLE GT PRN (18:01)
--- NOTE | 2021-04-04 18:30 | NUR ---
RN NOTES DUE MEDICATION ADMINISTERED , PM CARE DONE, SUCTION ORAL CARE, [id number]/DL COVERAGE GIVEN. PATIENT SEDATED DIPRIVAN 55MCG/KG/HR, AND TKO @10ML/HR INTACT. ASSIST TURN AND REPOSTION Q 2 HR. ENDORSED ONCOMING NURSE FOLLOW PLAN OF CARE.
[2021-04-04] MEDS: INSULIN REGULAR, HUMAN 100 UNIT/ML 3 ML VIAL SQ PRN (18:55)
--- NOTE | 2021-04-04 20:28 | NUR ---
SORTER OPERATOR. INITIAL ASSESSMENT. RECEIVED THE PT REST IN BED. ORALLY INTUBATED. ETT 7.5,AC 16,TV 450,FIO2 40%,PEEP 5. SAT 98%. NO ACUTE DISTRESS NOTED. LOG BUNCHER SHOWING NSR. IV RT UPPER ARM PICC LINE. PROPOFOL 55MCG/KG/MIN. TKO RUNNING. NGT INTACT. NEPRO 20 ML/H. HOB ELEVATED. DARREN SOFT WRIST RESTRAINT CHECKED AND RELEASED. NO INJURY OR REDNESS NOTED. WILL CONTINUE TO MONITOR VITALS.
[2021-04-04] MEDS: QUETIAPINE FUMARATE 25 MG TABLET GT SCH (22:00)
[2021-04-04] MEDS: ATORVASTATIN 10 MG TABLET GT SCH (22:07)
[2021-04-05] VITALS (56 sets, daily range): BP systolic 84–140; BP diastolic 47–67
[2021-04-05] MEDS: BLOOD SUGAR DIAGNOSTIC 1 EACH STRIP IN SCH ×5 (01:01→22:07)
[2021-04-05] MEDS: PROPOFOL 100 ML IV PRN ×2 (03:28→06:17)
--- NOTE | 2021-04-05 04:08 | NUR ---
auriculotherapist. am care given, remaining same vent settings tolerated well. sat 98%. no acute distress noted. panel monitor showing nsr. iv rt upper arm picc line. diprivan 55 mcg/kg/min, hob elevated, ngt feed not tolerated well. turn and reposition q2h. will continue to monitor vitals.
[2021-04-05 04:26] LABS: BASOPHILS % (AUTO) 0.5 % (0.0-2.0); EOSINOPHILS % (AUTO) 0.1 % (0.0-6.0); HEMATOCRIT 23 % (39-51); HEMOGLOBIN 7.9 g/dL (13.5-17.5); LYMPHOCYTES # (AUTO) 0.6 K/uL (0.8-4.8); MEAN CORPUSCULAR HGB CONC 34 g/dl (31.0-36.0); MEAN CORPUSCULAR VOLUME 89 fL (80-96); MONOCYTES # (AUTO) 0.6 K/uL (0.1-1.30); NEUTROPHILS # (AUTO) 6.8 K/uL (1.8-8.9); NEUTROPHILS % (AUTO) 84.4 % (43.0-81.0); PLATELET COUNT (AUTO) 117 K/uL (150-450); RED BLOOD CELL COUNT(AUTO) 2.62 MIL/uL (4.5-6.0)
[2021-04-05 04:43] LABS: CALCIUM, SERUM 7.9 mg/dL (8.5-10.1); CREATININE 2.2 mg/dL (0.6-1.3)
[2021-04-05] MEDS: PIPERACILLIN /TAZOBACTAM 2.25 G in IV D5W 50 ML IV SCH ×3 (05:35→20:55)
[2021-04-05] MEDS: CITRIC ACID/SODIUM CITRATE (BICITRA)15 ML UDC GT SCH ×4 (09:06→22:06)
[2021-04-05] MEDS: hydrALAZINE HCL 50 MG TABLET GT SCH ×3 (09:06→16:25)
[2021-04-05] MEDS: CHOLECALCIFEROL 1,000 UNIT TABLET (VIT D3) GT SCH (09:06)
[2021-04-05] MEDS: AMLODIPINE BESYLATE 10 MG TABLET GT SCH (09:07)
[2021-04-05] MEDS: ESCITALOPRAM OXALATE (10 MG) 10 MG TABLET GT SCH (09:07)
[2021-04-05] MEDS: DEXAMETHASONE SOD PHOSPHATE 4 MG/ML VIAL IJ SCH (09:07)
[2021-04-05] MEDS: PANTOPRAZOLE 40 MG/PACK PACK NG SCH (09:07)
[2021-04-05] MEDS: DOXAZOSIN MESYLATE (4 MG) 4 MG TABLET GT SCH (09:08)
[2021-04-05] MEDS: NITROGLYCERIN 30 GM TUBE TP SCH ×2 (09:09→22:06)
--- NOTE | 2021-04-05 10:15 | NUR ---
RN NOTES DR LONDON SPOKEN WITH PATIENT FAMILY EXPLAINED PATIENT CONDITION, AND , AND 3 SONS MAKE DECISION FOR DNR/DNI.
--- NOTE | 2021-04-05 10:31 | NUR ---
RN NOTES PATIENT GET EXTUBATED AT THIS TIME, PATIENT DNR/DNI PER FAMILY DECISION, CO-SIGNED VIA CHARGE NURSE NERY. PATIENT FAMILY BEDSIDE.
--- NOTE | 2021-04-05 10:40 | NUR ---
RT PATIENT WEANED AND EXTUBATED PER DR LONDON. PATIENT PLACED ON HFNC 60L 90% AND WILL TITRATE FIO2 TO MAINTAIN SPO2 ABOVE 92% Addendum: 04/05/21 at 1041 by MAIN LINDSEY RT Amended: Links added.
[2021-04-05] MEDS ORDERED: DC PROPOFOL WHEN EXTUBATED XX SCH (11:00)
--- NOTE | 2021-04-05 13:23 | NUR ---
rn notes administered Miralax for constipation.
[2021-04-05] MEDS: BISACODYL SUPP (10 MG) 10 MG/SUPP.RECT SUPP.RECT RC PRN (16:23)
--- NOTE | 2021-04-05 16:58 | NUR ---
rn notes KUB done because of complaining of abdominal cramps, also administered bisacodyl 10mg supp for constipation. bs-109mg/dl, due medication administered, held bp medication because of bp 96/52. family next to the patient. will follow up.
--- NOTE | 2021-04-05 17:02 | NUR ---
rn notes patient will transfer to the [facility] unit telephone report given RN Ani.
[2021-04-05] MEDS: NEPRO 1,000 ML BOTTLE GT PRN (17:39)
[2021-04-05] MEDS: ACETAMINOPHEN 650 MG/20.3 ML UDC GT PRN (17:49)
--- NOTE | 2021-04-05 17:50 | NUR ---
rn notes administered tylenol 650 mg via ngt for abdominal cramp .
--- NOTE | 2021-04-05 18:24 | NUR ---
rn notes transferred patient to the [facility] unit with stable condition.
--- NOTE | 2021-04-05 18:30 | NUR ---
RN NOTES RECEIVED PATIENT VIA GURNEY FROM ICU. PATIENT ALERT AND ORIENTED TIMES 3.ROMANSH SPEAKING. NO PAIN NOTED. NO SOB NOTED. ON HIGH FLOW OF OXYGEN. ON NG TUBE FEEDING OF NEPHRO AT 20 ML/HR. ABLE TO MAKE NEEDS KNOWN. AT THE BED SIDE. NO PAIN NOTED. SAFETY MEASURES IN PLACE. BED IN THE LOWEST POSITION AND LOCKED. SIDE RAILS UP TIMES 2. CALL LIGHT AND TABLE WITHIN REACH. WILL ENDORSE FOR RODDY.
[2021-04-05] MEDS: IV NS 0.9% 250 ML IV PRN (19:19)
[2021-04-05] MEDS: QUETIAPINE FUMARATE 25 MG TABLET GT SCH (22:06)
[2021-04-05] MEDS: ATORVASTATIN 10 MG TABLET GT SCH (22:07)
[2021-04-06] VITALS: BP 106/75
--- NOTE | 2021-04-06 01:10 | NUR ---
RT Notes Pt placed on NOC BIPAP on ordered settings at 2338. Pt remove from BIPAP per patient request at 0105. Pt placed backed on HFNC on flow 40L and FIO2 40%. Will cont to monitor.
[2021-04-06 04:00] VITALS: BP 142/50
[2021-04-06 04:06] LABS: ABG BASE EXCESS -0.1 mmol/L; ABG OXYGEN SATURATION 94.4 % (92.0-98.5); ABG PCO2 47.7 mmHg (35.0-45.0); ABG PH 7.349 (7.350-7.450); ABG PO2 77.3 mmHg (75.0-100.0); COHb 0.1 % (0.5-1.5); MetHb 0.6 % (0.0-1.5); O2Hb 93.7 % (94.0-97.0); PEEP,BG 5 cm H2O; SITE, ABG Right Radial; VENT MODE, BG SIMV PS12; VT, ABG 450 mL
[2021-04-06] MEDS: PIPERACILLIN /TAZOBACTAM 2.25 G in IV D5W 50 ML IV SCH ×2 (04:43→12:23)
[2021-04-06] MEDS: BLOOD SUGAR DIAGNOSTIC 1 EACH STRIP IN SCH ×4 (05:16→23:44)
[2021-04-06] MEDS: ACETAMINOPHEN 650 MG/20.3 ML UDC GT PRN (06:39)
--- NOTE | 2021-04-06 06:41 | NUR ---
GALA/BEAUTY SPECIALIST PT COMPLAINED ABOUT ABDOMEN PAIN, TYLENOL GIVEN FOR THIS. PT HAD A KUB LAST NIGHT WHICH WAS RESULTED. PT HAD X2 LARGE, SOFT BM.
[2021-04-06 06:54] LABS: BASOPHILS % (AUTO) 0.2 % (0.0-2.0); HEMATOCRIT 23 % (39-51); HEMOGLOBIN 7.8 g/dL (13.5-17.5); LYMPHOCYTES # (AUTO) 0.5 K/uL (0.8-4.8); LYMPHOCYTES % (AUTO) 9.4 % (20.0-44.0); MEAN CORPUSCULAR HGB CONC 33 g/dl (31.0-36.0); MEAN CORPUSCULAR VOLUME 90 fL (80-96); MONOCYTES # (AUTO) 0.4 K/uL (0.1-1.30); MONOCYTES % (AUTO) 7.4 % (2.0-12.0); NEUTROPHILS # (AUTO) 4.8 K/uL (1.8-8.9); PLATELET COUNT (AUTO) 144 K/uL (150-450); WHITE BLOOD COUNT (AUTO) 5.8 K/uL (4.3-11.0)
[2021-04-06 08:00] VITALS: BP 100/49
[2021-04-06 08:01] LABS: BILIRUBIN,TOTAL 0.9 mg/dL (0.2-1.0); CALCIUM, SERUM 8.2 mg/dL (8.5-10.1); MAGNESIUM 2.3 mg/dL (1.8-2.4); PHOSPHORUS 5.8 mg/dL (2.5-4.9); POTASSIUM 4.3 mmol/L (3.5-5.1); TOTAL PROTEIN, SERUM 6.2 g/dL (6.4-8.2)
[2021-04-06 08:07] LABS: ALBUMIN 1.7 g/dL (3.4-5.0)
[2021-04-06] MEDS: CITRIC ACID/SODIUM CITRATE (BICITRA)15 ML UDC GT SCH ×4 (08:47→21:40)
[2021-04-06] MEDS: DOXAZOSIN MESYLATE (4 MG) 4 MG TABLET GT SCH (08:48)
[2021-04-06] MEDS: AMLODIPINE BESYLATE 10 MG TABLET GT SCH (08:48)
[2021-04-06] MEDS: PANTOPRAZOLE 40 MG/PACK PACK NG SCH (08:48)
[2021-04-06] MEDS: ESCITALOPRAM OXALATE (10 MG) 10 MG TABLET GT SCH (08:48)
[2021-04-06] MEDS: CHOLECALCIFEROL 1,000 UNIT TABLET (VIT D3) GT SCH (08:48)
[2021-04-06] MEDS: DEXAMETHASONE SOD PHOSPHATE 4 MG/ML VIAL IJ SCH (08:49)
[2021-04-06] MEDS: hydrALAZINE HCL 50 MG TABLET GT SCH ×3 (08:49→16:24)
[2021-04-06] MEDS: NITROGLYCERIN 30 GM TUBE TP SCH ×2 (08:53→21:41)
--- NOTE | 2021-04-06 10:00 | NUR ---
RN NOTE PT SWISS SPEAKER. PT ABLE TO POINT AT STOMACH WITH ABDOMINAL DISTENTION. BLADDER SCAN INDICATING >999CC. I INSERTED OLIVEIRA OUTPUT OF 1300CC WITH DARK RED URINE.
[2021-04-06] MEDS: BISACODYL SUPP (10 MG) 10 MG/SUPP.RECT SUPP.RECT RC PRN (10:40)
[2021-04-06 10:54] LABS: ABG BASE EXCESS -0.1 mmol/L; ABG OXYGEN SATURATION 93.5 % (92.0-98.5); ABG PCO2 57.1 mmHg (35.0-45.0); ABG PO2 73.9 mmHg (75.0-100.0); AaDO2 145.6 mmHg; COHb 0.4 % (0.5-1.5); MetHb 0.4 % (0.0-1.5); O2Hb 92.8 % (94.0-97.0); SITE, ABG Right Radial; VENT MODE, BG HHF 40L 40%
[2021-04-06 12:00] VITALS: BP 106/49
[2021-04-06] MEDS ORDERED: CEFAZOLIN 2 GM in IV D5W 100 ML IV SCH (15:00)
--- NOTE | 2021-04-06 15:00 | NUR ---
RN NOTE SPOKE TO DR. POLO ABOUT 1.3L DARK RED URINE OUTPUT, AND CONTINUING ABDOMINAL PAIN. PALPABLE DISTENTION, SHARP PAIN, AND PAIN 10 OF [address] POLO ORDERED MORPHINE 2G Q3HRS AND SIMETHICONE PRN. AND ABDOMINAL X-RAY.
[2021-04-06] MEDS: LORAZEPAM INJ 2 MG/ML VIAL IV PRN (15:32)
[2021-04-06 16:00] VITALS: BP 102/52
[2021-04-06] MEDS ORDERED: SIMETHICONE 80 MG TAB.CHEW GT PRN (16:00)
[2021-04-06] MEDS ORDERED: MORPHINE SULFATE INJ 2 MG/ML DISP.SYRIN IM PRN ×2 (16:00→16:30)
[2021-04-06] MEDS: WARFARIN SODIUM 2 MG TABLET PO SCH (16:24)
[2021-04-06] MEDS: ANCEF 1 GM/50 ML D5W IV SCH ×2 (16:56)
[2021-04-06] MEDS: MORPHINE SULFATE INJ 2 MG/ML DISP.SYRIN IV PRN ×2 (17:41→23:46)
--- NOTE | 2021-04-06 18:00 | NUR ---
RN NOTE DR. MODI NOTIFIED ABOUT HEMATURIA AND 1.3L CC. HE IS AWARE THAT PT SAT DROPS TO 77% DURING FEEDING AND ORDERED NPO.
[2021-04-06] MEDS: INSULIN REGULAR, HUMAN 100 UNIT/ML 3 ML VIAL SQ PRN (19:28)
--- NOTE | 2021-04-06 19:35 | NUR ---
RN OPENING NOTES RECEIVED PATIENT IN BED, AWAKE, ALERT/ORIENTED X3, DANISH SPEAKING. ON HIGH FLOW O2 40% AND PT TOLERATED WELL. IV ACCESS ON HEATHER PICC INTACT AND PATENT. NO BLEEDING NOTED. ON NG TUBE FEEDING OF NEPHRO AT 20 ML/HR AND PT TOLERATED WELL. FAMILY MEMBERS AT BEDSIDE. NO PAIN AND ACUTE DISTRESS. ALL SAFETY MEASURES IN PLACE. BED IN LOWEST POSITION AND LOCKED. SIDE RAILS UP TIMES 2. PLACE CALL LIGHT AND TABLE WITHIN REACH. WILL CONTINUE TO MONITOR
--- NOTE | 2021-04-06 19:35 | NUR ---
RCVD PT ON HI FLOW 55L, 50%. PLACED PT ON NOC BIPAP 25/5, RATE 20, FIO2 40%. SPO2 95, HR 76. NO RESPIRATORY DISTRESS NOTED AT THIS TIME. WILL CONTINUE TO MONITOR PT T/O SHIFT
[2021-04-06 20:00] VITALS: BP 120/58
[2021-04-06] MEDS: QUETIAPINE FUMARATE 25 MG TABLET GT SCH (21:41)
[2021-04-06] MEDS: ATORVASTATIN 10 MG TABLET GT SCH (21:41)
--- NOTE | 2021-04-06 23:48 | NUR ---
RN NOTES: PT'S BLOOD SUGAR 126. NO COVERAGE NEEDED. NO S/S OF HYPER/HYPOGLYCEMIA. C/O ABDOMEN PAIN 8/10 ON PAIN SCALE. MORPHINE SULFATE 1ML GIVEN. PT TOLERATED WELL
[2021-04-07] VITALS: BP 107/61
[2021-04-07] MEDS: ANCEF 1 GM/50 ML D5W IV SCH ×4 (02:56→15:38)
[2021-04-07 04:00] VITALS: BP 120/52
[2021-04-07] MEDS: BLOOD SUGAR DIAGNOSTIC 1 EACH STRIP IN SCH ×3 (06:33→17:51)
--- NOTE | 2021-04-07 06:41 | NUR ---
RN CLOSING NOTES PATIENT IN BED, AWAKE, ALERT/ORIENTED X3, MAORI SPEAKING. PT ON HIGH FLOW 50% AFTER NOCTURNAL BIPAP AND PT TOLERATED WELL. O2 SAT 93%. IV ACCESS ON HEATHER PICC INTACT AND PATENT. NO BLEEDING NOTED. ON NG TUBE FEEDING OF NEPHRO AT 20 ML/HR AND PT TOLERATED WELL. NO PAIN OR DISCOMFORT. NO ACUTE DISTRESS. ALL DUE MEDS GIVEN ORDER. BLOOD SUGAR AT 6AM, 91. NO COVERAGE NEEDED. NO S/S OF HYPER/HYPOGLYCEMIA. PROVIDED GOOD SKIN CARE. KEPT CLEAN, DRY AND COMFORTABLE. ALL SAFETY MEASURES IN PLACE. BED IN LOWEST POSITION AND LOCKED. SIDE RAILS UP TIMES 2. PLACE CALL LIGHT AND TABLE WITHIN REACH. WILL ENDORSE TO MORNING SHIFT NURSE.
[2021-04-07 06:58] LABS: BASOPHILS % (AUTO) 0.3 % (0.0-2.0); EOSINOPHILS % (AUTO) 0.6 % (0.0-6.0); HEMATOCRIT 23 % (39-51); HEMOGLOBIN 7.9 g/dL (13.5-17.5); LYMPHOCYTES # (AUTO) 0.3 K/uL (0.8-4.8); LYMPHOCYTES % (AUTO) 3.5 % (20.0-44.0); MEAN CORPUSCULAR HGB CONC 34 g/dl (31.0-36.0); MEAN CORPUSCULAR VOLUME 89 fL (80-96); MONOCYTES # (AUTO) 0.4 K/uL (0.1-1.30); MONOCYTES % (AUTO) 4.6 % (2.0-12.0); NEUTROPHILS # (AUTO) 7.1 K/uL (1.8-8.9); PLATELET COUNT (AUTO) 159 K/uL (150-450); RED BLOOD CELL COUNT(AUTO) 2.63 MIL/uL (4.5-6.0); WHITE BLOOD COUNT (AUTO) 7.8 K/uL (4.3-11.0)
[2021-04-07 07:19] LABS: CALCIUM, SERUM 8.1 mg/dL (8.5-10.1); CREATININE 3.5 mg/dL (0.6-1.3); MAGNESIUM 2.3 mg/dL (1.8-2.4); PHOSPHORUS 5.7 mg/dL (2.5-4.9); POTASSIUM 4.5 mmol/L (3.5-5.1)
--- NOTE | 2021-04-07 07:30 | NUR ---
TD RN AM NOTES RECEIVED PATIENT IN BED, AWAKE, ALERT/ORIENTED X3, FRISIAN SPEAKING. ON HIGH FLOW O2 50% O2 SAT 93%, NO S/SX OF ACUTE DISTRESS AT THIS TIME; AND PT TOLERATED WELL. NO SIGNS OF PAIN, IV ACCESS ON HEATHER PICC INTACT AND PATENT. SITE CLEAR. WITH NGT FEEDING OF NEPHRO AT 45 ML/HR ONGOING. CHECKED FOR PLACEMENT, O RESIDUAL. WITH OLIVEIRA CATH IN PLACE, BROWNISH URINE, SEE NURSING NOTES FOR SKIN ISSUES. ABDOMEN DISTENDED, NOT TENDER. ALL SAFETY MEASURES IN PLACE. BED IN LOWEST POSITION AND LOCKED. SIDE RAILS UP TIMES 2. PLACE CALL LIGHT AND TABLE WITHIN REACH. WILL CONTINUE TO MONITOR
[2021-04-07 08:00] VITALS: BP 95/52
[2021-04-07] MEDS: AMLODIPINE BESYLATE 10 MG TABLET GT SCH (09:00)
[2021-04-07] MEDS: DOXAZOSIN MESYLATE (4 MG) 4 MG TABLET GT SCH (09:00)
[2021-04-07] MEDS: hydrALAZINE HCL 50 MG TABLET GT SCH ×3 (09:00→17:00)
[2021-04-07] MEDS: NITROGLYCERIN 30 GM TUBE TP SCH ×2 (09:00→20:24)
--- NOTE | 2021-04-07 09:30 | NUR ---
RN NOTES DUE MEDS GIVEN PER DR. LONDON TITRATE O2 SAT 88%-90%.
[2021-04-07] MEDS: CITRIC ACID/SODIUM CITRATE (BICITRA)15 ML UDC GT SCH ×4 (09:37→20:23)
[2021-04-07] MEDS: DEXAMETHASONE SOD PHOSPHATE 4 MG/ML VIAL IJ SCH (09:38)
[2021-04-07] MEDS: CHOLECALCIFEROL 1,000 UNIT TABLET (VIT D3) GT SCH (09:39)
[2021-04-07] MEDS: ESCITALOPRAM OXALATE (10 MG) 10 MG TABLET GT SCH (09:39)
[2021-04-07] MEDS: PANTOPRAZOLE 40 MG/PACK PACK NG SCH (09:39)
[2021-04-07 12:00] VITALS: BP 98/60
--- NOTE | 2021-04-07 15:53 | NUR ---
RN NOTES HOLD GT FEEDING FOR NOW. FOR CT ABDOMEN/PELVIS WO PER DR. PEREZ
[2021-04-07 16:00] VITALS: BP 103/53
[2021-04-07] MEDS: WARFARIN SODIUM 2 MG TABLET PO SCH (17:00)
--- NOTE | 2021-04-07 17:28 | NUR ---
fio2 titration fio2 decreased from 50% to 40% due to 96% spo2 Addendum: 04/07/21 at 1729 by NIDHI LIANG RT Amended: Links added.
--- NOTE | 2021-04-07 18:36 | NUR ---
TD RN CLOSING NOTES PATIENT RESTING COMFORTABLY, FAMILY AT BEDSIDE. IN BED, AWAKE, ALERT/ORIENTED X3, POLISH SPEAKING. ON HIGH FLOW O2 40% O2 SAT 90%, NO S/SX OF ACUTE DISTRESS AT THIS TIME; AND PT TOLERATED WELL. NO SIGNS OF PAIN, IV ACCESS ON HEATHER PICC INTACT AND PATENT. SITE CLEAR. WITH NGT, FEEDING ON HOLD. NPO EXCEPT MEDS. CHECKED FOR PLACEMENT, O RESIDUAL. WITH OLIVEIRA CATH IN PLACE, BROWNISH URINE, 350 OUTPUT. ABDOMEN DISTENDED, NOT TENDER. TURNED AND REPOSITIONED Q 2HOURS. PM CARE DONE. PRESCRIBED WOUND CARE DONE. ALL SAFETY MEASURES IN PLACE. BED IN LOWEST POSITION AND LOCKED. SIDE RAILS UP TIMES 2. PLACE CALL LIGHT AND TABLE WITHIN REACH. ALL NEEDS MET AT THIS TIME. WILL ENDORSE TO NEXT SHIFT FOR RODDY.
--- NOTE | 2021-04-07 19:10 | NUR ---
RN NOTE RECEIVED PATIENT IN BED RESTING ALERT ORIENTED 2-3 VERBALLY RESPONSIVE,ON HIGH FLOW OXYGEN O2: 40l OXYGEN @ O2:90% IV SITE IF ON RIGHT UPPER ARM PICC LINE INTACT PATENT,ON NG-TUBE FEEDING NEPRO 45CC/HR,NOW NPO EXCEPT THE MEDS CHECKED PLACEMENT IN PLACE NO RESIDUAL NOTED,HEAD OF THE BED ELEVATED,SAFETY MEASURE IMPLEMENT CALL LIGHT WITHIN REACH CONTINUE TO MONITOR.
[2021-04-07 20:00] VITALS: BP 116/61
[2021-04-07] MEDS: ATORVASTATIN 10 MG TABLET GT SCH (21:21)
[2021-04-07] MEDS: QUETIAPINE FUMARATE 25 MG TABLET GT SCH (21:21)
[2021-04-08] VITALS: BP 116/61
[2021-04-08] MEDS: BLOOD SUGAR DIAGNOSTIC 1 EACH STRIP IN SCH ×2 (00:31→06:05)
[2021-04-08] MEDS: ANCEF 1 GM/50 ML D5W IV SCH ×2 (02:45)
[2021-04-08 04:00] VITALS: BP 101/49
--- NOTE | 2021-04-08 06:35 | NUR ---
RN NOTE PATIENT REMAINS ON ALERT ORIENTED X2-3 VERBALLY RESPONSIVE ON HIGH FLOW OXYGEN 40L O2:89-90% IV SITE IS ON RIGHT UPPER ARM PICC LINE INTACT PATENT,KEPT CLEAN AND DRY ALL THE TIME,ALL DUE MEDS GIVEN MD ORDERED,KEPT HEAD OF THE BED ELEVATED,REPOSITIONED EVERY 2 HOURS,SKIN TREATMENT DONE ALL NEEDS MET ENDORSE NEXT COMING SHIFT FOR CONTINUATION OF CARE.
[2021-04-08 06:44] LABS: EOSINOPHILS % (AUTO) 0.3 % (0.0-6.0); HEMATOCRIT 24 % (39-51); HEMOGLOBIN 7.7 g/dL (13.5-17.5); LYMPHOCYTES # (AUTO) 0.5 K/uL (0.8-4.8); LYMPHOCYTES % (AUTO) 3.3 % (20.0-44.0); MEAN CORPUSCULAR HGB CONC 32 g/dl (31.0-36.0); MEAN CORPUSCULAR VOLUME 91 fL (80-96); MONOCYTES # (AUTO) 0.4 K/uL (0.1-1.30); MONOCYTES % (AUTO) 2.8 % (2.0-12.0); NEUTROPHILS % (AUTO) 93.6 % (43.0-81.0); PLATELET COUNT (AUTO) 175 K/uL (150-450)
--- NOTE | 2021-04-08 07:30 | NUR ---
TD RN AM NOTES RECEIVED PATIENT ASLEEP, RESPONDS TO NAME AND TOUCH, ALERT/ORIENTED X3, AMHARIC SPEAKING. ON HIGH FLOW O2 55L FIO2 40% O2 SAT 90%, NO S/SX OF ACUTE DISTRESS AT THIS TIME; AND PT TOLERATED WELL. NO SIGNS OF PAIN, IV ACCESS HEATHER PICC INTACT AND PATENT. SITE CLEAR. WITH NGT FEEDING HOLD FOR NOW. CHECKED FOR PLACEMENT, O RESIDUAL. NPO EXCEPT MEDS. WITH OLIVEIRA CATH IN PLACE, BROWNISH URINE, SEE NURSING NOTES FOR SKIN ISSUES. ABDOMEN DISTENDED, NOT TENDER. ALL SAFETY MEASURES IN PLACE. BED IN LOWEST POSITION AND LOCKED. SIDE RAILS UP TIMES 2. PLACE CALL LIGHT AND TABLE WITHIN REACH. WILL CONTINUE TO MONITOR
[2021-04-08 07:41] LABS: ALBUMIN 1.8 g/dL (3.4-5.0); BILIRUBIN,TOTAL 1.1 mg/dL (0.2-1.0); CALCIUM, SERUM 8.4 mg/dL (8.5-10.1); CREATININE 4.2 mg/dL (0.6-1.3); MAGNESIUM 2.4 mg/dL (1.8-2.4); PHOSPHORUS 7.1 mg/dL (2.5-4.9); POTASSIUM 4.9 mmol/L (3.5-5.1); TOTAL PROTEIN, SERUM 6.8 g/dL (6.4-8.2)
[2021-04-08 08:00] VITALS: BP 86/48
--- NOTE | 2021-04-08 08:29 | NUR ---
RN NOTES DR. RADHA PEREZ NOTIFIED ABOUT BP 86/48. NPO SINCE YESTERDAY. PER HIM, OKAY TO RESTART TUBE FEEDING. WILL RESTART AT 20 ML/HR GOAL IS 45 ML/HR
[2021-04-08 09:00] VITALS: BP 86/48
[2021-04-08] MEDS: hydrALAZINE HCL 50 MG TABLET GT SCH (09:00)
[2021-04-08] MEDS: AMLODIPINE BESYLATE 10 MG TABLET GT SCH (09:00)
[2021-04-08] MEDS: NITROGLYCERIN 30 GM TUBE TP SCH (09:00)
[2021-04-08] MEDS: DOXAZOSIN MESYLATE (4 MG) 4 MG TABLET GT SCH (09:00)
[2021-04-08] MEDS: CHOLECALCIFEROL 1,000 UNIT TABLET (VIT D3) GT SCH (09:07)
[2021-04-08] MEDS: ESCITALOPRAM OXALATE (10 MG) 10 MG TABLET GT SCH (09:07)
[2021-04-08] MEDS: PANTOPRAZOLE 40 MG/PACK PACK NG SCH (09:07)
[2021-04-08] MEDS: DEXAMETHASONE SOD PHOSPHATE 4 MG/ML VIAL IJ SCH (09:08)
[2021-04-08] MEDS: CITRIC ACID/SODIUM CITRATE (BICITRA)15 ML UDC GT SCH (09:08)
--- NOTE | 2021-04-08 09:30 | NUR ---
RN NOTES DUE MEDS GIVEN
--- NOTE | 2021-04-08 10:40 | NUR ---
manny belle note called kyleigh joseph curry for verification code status , stated no tubes ,no cpr , make him comfortable Addendum: 04/08/21 at 1146 by NICOLE CHRISTY RN wrong entry as above
--- NOTE | 2021-04-08 10:40 | NUR ---
manny rn note manny rn note called kyleigh curry for verification code status , stated no tubes ,no cpr , make him comfortable
--- NOTE | 2021-04-08 10:43 | NUR ---
RN NOTES PATIENT ASYSTOLE ON MONITOR, NO HEART BEAT NO RESPIRATION. AT 1043. BY CHARGE NURSE NICOLE PEREZ NOTIFIED. Addendum: 04/08/21 at 1127 by KARLA LAYNE RN ADDENDUM: FAMILY NOTIFIED BY CHARGE NURSE
--- NOTE | 2021-04-08 11:15 | NUR ---
RN NOTES EDUARDA - SON AT BEDSIDE.
--- NOTE | 2021-04-08 12:10 | NUR ---
RN NOTES POST MORTEM CARE RENDERED. DOUBLE BAGGED. DENTURES GIVEN TO TISH - SON. WAITING FOR [facility] TO PUBLIC HEALTH WORKER REMAINS.
--- NOTE | 2021-04-08 14:20 | NUR ---
RN NOTES REMAINS RELEASED TO [facility]. ALL PAPERS SIGNED.
== END 2021-04-08 14:32 | DRG 870 ==
LOC: ER 05:33 → TELE 08:57 → UNDOADMIN 08:57 → TRANSITION 09:24 → TELE1 15:13 → ICU 03-08 06:31 → TELE1 03-12 17:22 → ICU 03-22 16:54 → TELE-TD 04-05 18:12
PROVIDERS: ADMIT Nurse Practitioner Acute Care; ATTEND Hospitalist
PROC: 5A1955Z Respiratory Ventilation, Greater than 96 Consecutive Hours (ICD-10-PCS; 2021-02-28)
PROC: 5A1D70Z Performance of Urinary Filtration, Intermittent, Less than 6 Hours Per Day (ICD-10-PCS; 2021-03-07)
PROC: 06HY33Z Insertion of Infusion Device into Lower Vein, Percutaneous Approach (ICD-10-PCS; 2021-03-07)
PROC: 5A1945Z Respiratory Ventilation, 24-96 Consecutive Hours (ICD-10-PCS; principal; 2021-03-08)
PROC: 0BH18EZ Insertion of Endotracheal Airway into Trachea, Via Natural or Artificial Opening Endoscopic (ICD-10-PCS; 2021-03-08)
PROC: 02HV33Z Insertion of Infusion Device into Superior Vena Cava, Percutaneous Approach (ICD-10-PCS; 2021-03-08)
PROC: B548ZZA Ultrasonography of Superior Vena Cava, Guidance (ICD-10-PCS; 2021-03-08)
PROC: 5A12012 Performance of Cardiac Output, Single, Manual (ICD-10-PCS; 2021-03-08)
PROC: 06HM33Z Insertion of Infusion Device into Right Femoral Vein, Percutaneous Approach (ICD-10-PCS; 2021-03-20)
PROC: B54BZZA Ultrasonography of Right Lower Extremity Veins, Guidance (ICD-10-PCS; 2021-03-20)
PROC: 5A09557 Assistance with Respiratory Ventilation, Greater than 96 Consecutive Hours, Continuous Positive Airway Pressure (ICD-10-PCS; 2021-03-21)
PROC: 30233N1 Transfusion of Nonautologous Red Blood Cells into Peripheral Vein, Percutaneous Approach (ICD-10-PCS; 2021-03-24)
PROC: 0BH18EZ Insertion of Endotracheal Airway into Trachea, Via Natural or Artificial Opening Endoscopic (ICD-10-PCS; 2021-03-31)
PROC: 5A12012 Performance of Cardiac Output, Single, Manual (ICD-10-PCS; 2021-03-31)
PROC: 02HV33Z Insertion of Infusion Device into Superior Vena Cava, Percutaneous Approach (ICD-10-PCS; 2021-03-31)
PROC: B548ZZA Ultrasonography of Superior Vena Cava, Guidance (ICD-10-PCS; 2021-03-31)
PROC: 5A09457 Assistance with Respiratory Ventilation, 24-96 Consecutive Hours, Continuous Positive Airway Pressure (ICD-10-PCS; 2021-04-05)
DX: A41.89 Other specified sepsis (principal); U07.1 COVID-19; J12.82 Pneumonia due to coronavirus disease 2019; N17.0 Acute kidney failure with tubular necrosis; R65.21 Severe sepsis with septic shock; E43 Unspecified severe protein-calorie malnutrition; G92.8 Other toxic encephalopathy; J96.01 Acute respiratory failure with hypoxia; J96.02 Acute respiratory failure with hypercapnia; E87.1 Hypo-osmolality and hyponatremia; E87.2 Acidosis; D68.9 Coagulation defect, unspecified; J90 Pleural effusion, not elsewhere classified; I13.0 Hypertensive heart and chronic kidney disease with heart failure and stage 1 through stage 4 chronic kidney disease, or unspecified chronic kidney disease; J44.0 Chronic obstructive pulmonary disease with (acute) lower respiratory infection; J98.11 Atelectasis; N18.9 Chronic kidney disease, unspecified; E11.22 Type 2 diabetes mellitus with diabetic chronic kidney disease; Z95.1 Presence of aortocoronary bypass graft; Z95.2 Presence of prosthetic heart valve; D50.9 Iron deficiency anemia, unspecified; D63.8 Anemia in other chronic diseases classified elsewhere; D69.6 Thrombocytopenia, unspecified; E66.01 Morbid (severe) obesity due to excess calories; E78.5 Hyperlipidemia, unspecified; E87.5 Hyperkalemia; Z87.891 Personal history of nicotine dependence; Z79.01 Long term (current) use of anticoagulants; I25.2 Old myocardial infarction; Z66 Do not resuscitate; Z79.82 Long term (current) use of aspirin; Z79.84 Long term (current) use of oral hypoglycemic drugs; I25.10 Atherosclerotic heart disease of native coronary artery without angina pectoris; F32.A Depression, unspecified; K58.9 Irritable bowel syndrome, unspecified; N40.0 Benign prostatic hyperplasia without lower urinary tract symptoms; E88.09 Other disorders of plasma-protein metabolism, not elsewhere classified; Z68.34 Body mass index [BMI] 34.0-34.9, adult; I50.9 Heart failure, unspecified; E83.9 Disorder of mineral metabolism, unspecified; L89.156 Pressure-induced deep tissue damage of sacral region; L89.816 Pressure-induced deep tissue damage of head; Z20.822 Contact with and (suspected) exposure to COVID-19; G47.33 Obstructive sleep apnea (adult) (pediatric); I46.9 Cardiac arrest, cause unspecified; N40.1 Benign prostatic hyperplasia with lower urinary tract symptoms; Z79.4 Long term (current) use of insulin
CPT/HCPCS: 31720; 36415; 36569; 36600; 71045-TC; 71250-TC; 74018; 74022-TC; 76770-TC; 80048-TC; 80053-TC; 80076-TC; 81001; 82728-TC; 82803-TC; 82962-TC; 83605-TC; 83615-TC; 83735-TC; 83880; 84100-TC; 84478-TC; 84484-TC; 85025-TC; 85378-TC; 85610-TC; 85730-TC; 86140-TC; 86704; 86705; 86706; 86803; 86850-TC; 87040-TC; 87070-TC; 87081-TC; 87086-TC; 87340; 90935-TC; 92526; 92611-TC; 92950-TC; 93307-TC; 94002-TC; 94003-TC; 94660; 94760-TC; 94762-TC; 94799-TC; 97110-TC; 97112-TC; 97116-TC; 97530-TC; A4216; A6253; A6403; C9113; G0378; J0171; J0610; J0690; J0692; J0696; J1100; J1644; J1815; J1940; J2060; J2185; J2270; J2543; J2704; J3430; J3490; J7030; J7040; J7042; J7050; J7060; J8540; P9016; P9047